=== PATIENT | male | born 1970 | race Caucasian/White ===

== ENCOUNTER 2019-07-01 14:28 | Outpatient (REF) | payer OTHER, SELFPAY ==
[2019-07-01 19:53] LABS: Cholesterol 139 mg/dL (50-200); Glucose 109 mg/dL (70-100); HDL Cholesterol 82 mg/dL (40-60)
[2019-07-01 20:15] LABS: Triglyceride < 25 mg/dL (30-150)
[2019-07-01 20:52] LABS: LDL CHOLESTEROL 48 mg/dL (<100)
== END 2019-07-01 14:48 ==
LOC: NCHCN 14:28
PROVIDERS: PCP Nurse Practitioner; Visit Provider Nurse Practitioner
DX: Z00.00 Encounter for general adult medical examination without abnormal findings (principal); Z13.220 Encounter for screening for lipoid disorders; Z13.1 Encounter for screening for diabetes mellitus
CPT/HCPCS: 80061; 82947; 83721

== ENCOUNTER 2019-07-09 15:20 | Emergency (ER) | payer OTHER, SELFPAY ==
[2019-07-09 15:37] VITALS: BP 115/75; PULSE 68; RESP 16; TEMP 37.1; O2SAT 98
--- NOTE | 2019-07-09 15:56 | DI.RAD_ITS ---
SYMPTOM/DIAGNOSIS: FELL IN BATH TUB, SWELLING, PAIN, BRUISE RIGHT TIB-FIB: Two views. No bone, joint or soft tissue abnormality is identified.
--- NOTE | 2019-07-09 15:57 | W.ED.GENAD ---
Discharge Plan Disposition Patient Disposition: HOME Condition: Good Discharge Details Chief Complaint: Orthopedic Clinical Impression: Contusion of right tibia Primary Care Provider: Romelia Lopes ED Provider: Chava Bettencourt Home Meds and New Rx's Prescriptions: No Action epinephrine [EpiPen 2-Julio] 0.3 MG/0.3 ML auto-injector 0.3 mg IJ PRN PRNQty: 1 RF: 0 diphenhydramine HCl 25 MG capsule 25 mg PO Q4H PRN PRNRF: 0 acetaminophen 325 MG tablet 650 mg PO Q8H PRN PRN (Reason: Pain) Qty: 30 RF: 0 Discharge Instructions Instructions: Contusion in Adults (ED) Additional Instructions: At this time your x-ray shows no evidence of acute fracture. Please take Tylenol and Motrin as needed for pain. Maximum doses of both are 1000 mg for Tylenol every 6 hours and 800 mg for ibuprofen every 6 hours. Please continue to use ice for the next 12 to 24 hours, and then switch to heat to help with the hematoma reabsorption. Please go easy on your right lower extremity and do not perform any significant vigorous physical activity for the next week to help with healing. If you notice any worsening of your symptoms, or any new symptoms such as vomiting, diarrhea, fever, chills, shortness of breath, chest pain, numbness, weakness, or fainting , please return immediately to the emergency department for reevaluation. Please follow up with your primary care provider as soon as possible for reassessment and reevaluation. As always, it was a pleasure participating in your medical care today. Referrals: Romelia Lopes [Primary Care Provider] - Discharge Data Discharge Date/Time-TO BE ENTERED AT DEPARTURE: 07/09/19 17:35 Medical Decision Making This is a very pleasant 49-year-old male who presents for evaluation of contusion over the right tibia, after a fall in the bathtub. This occurred 24 hours ago. Notable hematoma over the midshaft region of the tibia. No significant fibular tenderness except for at the distal hematoma location. No tenderness over the ankle or knee. No warmth or signs of infection. Brisk capillary refill, normal neurovascular exam. Patient is able to walk but with a mild limp. Exam demonstrates signs and symptoms concerning for notable hematoma versus hairline fracture. We will get an x-ray to rule out acute fracture. X-ray per virtual radiology negative for any acute process. Patient will be given crutches, recommend continued NSAIDs and ice. Discussed red flags which to return. I have extensively reviewed the treatment plan and discharge instructions with the patient. I have addressed all patient concerns at this time. The patient was made aware of what symptoms to monitor for that would warrant a return to the emergency department. Discussed the plan with the patient, they demonstrate verbal understanding and agreement with our assessment and plan at this time. FINDINGS: Bones/joints: Normal. Soft tissues: Normal. IMPRESSION: No acute findings. Dictated and Authenticated by: Keith Ortiz MD. Ordering:LINWOOD Larsen MD HPI General Date/Time Provider Initiated Documentation: 07/09/19 15:46. HPI Narrative: This is a very pleasant 49-year-old male who presents today for evaluation of pain in his right newell. 24 hours ago he was in a bathtub, had a mechanical slip and fall and hit his right tibia anteriorly on the shower. He had significant bruising and hematoma over the proximal and mid shaft tibia. Pain is made worse with movement and palpation. He is able to bear some weight but does have a limp. He denies any pain in his knee or ankle. He has not taken any NSAIDs for the pain. He has been using ice and heat. He denies hitting his head, neck, chest abdomen or pelvis. He denies any other significant pain in any other locations. He denies any numbness tingling or weakness. He is not on blood thinners. He denies any other complaints at this time. No other modifying factors. Related Data Home Medications Medication Instructions Recorded Confirmed epinephrine [EpiPen 2-Julio] 0.3 mg IJ PRN PRN #1 ml 02/14/15 07/09/19 acetaminophen 650 mg PO Q8H PRN PRN #30 tablet 02/10/18 07/09/19 diphenhydramine HCl 25 mg PO Q4H PRN PRN 02/10/18 07/09/19 Previous Rx's Medication Instructions Recorded epinephrine [EpiPen 2-Julio] 0.3 mg IJ PRN PRN #1 ml 02/14/15 acetaminophen 650 mg PO Q8H PRN PRN #30 tablet 02/10/18 Allergies Allergy/AdvReac Type Severity Reaction Status Date / Time milk AdvReac Intermediate Nausea Unverified 07/09/19 15:48 shellfish derived AdvReac Intermediate Swelling/Ed Unverified 07/09/19 15:48 shen hemp Allergy Severe Anaphylaxsi Uncoded 07/09/19 15:48 s pollen AdvReac Intermediate Hives Uncoded 07/09/19 15:48 General Stated Complaint: Orthopedic VEE: 4 Review of Systems Review of Systems All systems reviewed & are unremarkable except as noted in HPI and below PFSH Social History Smoking/Tobacco Use Status: Former Tobacco Use Alcohol Intake: current Alcohol Intake frequency: a few times a week Alcohol type: wine and hard liquor Drug use: Current Sobriety Substance use type: marijuana Do you feel safe in your relationship?: Yes Exam Narrative Exam Narrative: 1.Const: Well-nourished, Well-developed, appearing stated age 2.Eyes: PERRL, no conjunctival injection, and symmetrical lids. 3.ENT: Atraumatic external nose and ears. Moist MM. Neck: Symmetric, trachea midline, No thyromegaly. 4.CVS: +S1/S2, No murmurs or gallops. Peripheral pulses 2+ and equal in all extremities. Brisk capillary refill in all extremities. 5.RESP: Unlabored respiratory effort. Clear to auscultation bilaterally. No wheezes rales or rhonchi 6.GI: Soft, Nontender/Nondistended, No hepatosplenomegaly. No guarding or rebound. 7.MSK: Normocephalic, Extremities w/o deformit. No cyanosis or clubbing. Right lower extremity demonstrates notable hematoma over the tibia roughly 6 cm distal to the knee and a second hematoma roughly 6 cm proximal to the ankle. No fluctuance, erythema or warmth. No calf pain. The right knee is stable to varus, valgus, and anterior drawer stress. No deformity. Patellar grind test is negative. Debbi test is negative for pain. Patient is able to walk but does have a mild limp. No edema or warmth to the joint. No ttp to the patella, tibial plateau, or fibular head. Evaluation of the ankle demonstrates no tenderness whatsoever. No tenderness over the medial or lateral malleoli. Excellent plantar and dorsiflexion. Normal sensation throughout. Brisk capillary refill. Dorsalis pedis and posterior tibial pulse +2 bilaterally. 8.Skin: Warm, Dry. No rashes or lesions. 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 Sensation grossly intact, no focal neurologic deficits. 10.Psych: (AAO) x3. Appropriate mood and affect Course Vital Signs Temperature 37.1 C 07/09/19 15:37 Pulse 68 07/09/19 15:37 Respiratory Rate 16 07/09/19 15:37 Blood Pressure 115/75 07/09/19 15:37 Pulse Oximetry 98 07/09/19 15:37 Temperature 37.1 C 07/09/19 15:37 Temperature Source Temporal Artery Scan 07/09/19 15:37 Pulse 68 07/09/19 15:37 Respiratory Rate 16 07/09/19 15:37 Respiratory Effort 07/09/19 15:40 Blood Pressure 115/75 07/09/19 15:37 Blood Pressure Position Sitting 07/09/19 15:37 Pulse Oximetry 98 07/09/19 15:37 Oxygen Delivery Method Room Air 07/09/19 15:37 Oxygen Flow Rate 0 07/09/19 15:37 Pain Level 5 07/09/19 15:37
--- NOTE | 2019-07-09 17:13 | DI.VRAD_ITS ---
EXAM: XR Right Tibia and Fibula EXAM DATE/TIME: 07/09/2019 3:57 PM CLINICAL HISTORY: 49 years old, male; Lower leg; Right; Patient HX: Fell in bath tub yesterday, pain mid tib/fib, swelling and bruising. TECHNIQUE: Imaging protocol: XR Right tibia and fibula. Views: 2 views. COMPARISON: No relevant prior studies available. FINDINGS: Bones/joints: Normal. Soft tissues: Normal. IMPRESSION: No acute findings. Dictated and Authenticated by: Keith Ortiz MD. Ordering:LINWOOD Larsen MD
== END 2019-07-09 17:35 | disposition home or self-care (01) ==
PROVIDERS: Emergency Provider Student in an Organized Health Care Education/Training Program; PCP Nurse Practitioner
DX: S80.11XA Contusion of right lower leg, initial encounter (principal); W16.212A Fall in (into) filled bathtub causing other injury, initial encounter
CPT/HCPCS: 99283; 73590; E0114

== ENCOUNTER 2019-11-26 08:04 | Emergency (ER) | payer OTHER, SELFPAY ==
[2019-11-26 08:06] VITALS: BP 112/73; PULSE 57; RESP 16; TEMP 36.5; O2SAT 100
--- NOTE | 2019-11-26 08:30 | ED.GENADUL_ITS ---
Discharge Plan Disposition Patient Disposition: HOME Condition: Good Discharge Details Chief Complaint: Orthopedic Clinical Impression: Fracture, metacarpal Primary Care Provider: Romelia Lopes ED Provider: Mandy Petit Home Meds and New Rx's Prescriptions: Continued epinephrine [EpiPen 2-Julio] 0.3 MG/0.3 ML auto-injector 0.3 mg IJ PRN PRNQty: 1 RF: 0 diphenhydramine HCl 25 MG capsule 25 mg PO Q4H PRN PRNRF: 0 acetaminophen 325 MG tablet 650 mg PO Q8H PRN PRN (Reason: Pain) Qty: 30 RF: 0 fluticasone propion-salmeterol [Advair Diskus] 250-50 mcg/dose Blister With Device 1 ea INHALATION BID RF: 0 Discharge Instructions Instructions: Finger Fracture (ED) Additional Instructions: Encourage rest, ice, elevation. Tylenol and/or ibuprofen as needed for discomfort. Please continue with splint until reevaluated by orthopedics. Please call orthopedics to schedule follow-up appointment. If you develop fever/chills, increased pain or other new/worsening symptoms please seek care urgently once again. Orthopedics will also reevaluate the extension of your finger. Referrals: Nick Rodriguez MD [ [facility] STAFF PHYSICIAN] - Discharge Data Discharge Date/Time-TO BE ENTERED AT DEPARTURE: 11/26/19 09:47 Medical Decision Making Patient is a pleasant 49-year-old male presents today with chief complaint of left hand and right thigh pain. He reports that yesterday he was at the gym working with [employer] when he accidentally struck the lateral aspect of his left hand. This area of maximal discomfort. States that he then continued to boxing exercise. However, pain has progressively increased. He notes ecchymosis and swelling over the dorsal aspect near the fifth MCP joint. He denies any altered sensation. Has had, particularly with movement of the fourth and fifth digits. Also struck the mid medial right thigh when needing the boxing bag. States the back swung back and hit him again in the leg. No ecchymosis, deformity. No difficulty with ambulation. On exam Patient is resting comfortably. He has swelling and ecchymosis over the fifth meta carpal, more so toward the distal aspect. No pain with palpation about the finger. He does have difficulty with extension of the fifth digit, particularly over the PIP joint. Flexion is intact. Ligamentous exam elsewhere is normal. No involvement of the wrist. Pain maximal at the MCP joint of the fifth digit. Exam of the right thigh is without acute abnormality. He has 5 out of 5 strength in all vicente. No ecchymosis, deformity. He is able to straight leg raise against resistance. I have no suspicion for fracture given the mechanism and findings on exam. No knee involvement. FINDINGS: Three views were obtained. The patient l reportedly had direct trauma to the head of the 5th metacarpal and there is a tiny cortical defect and associated apparent osseous fragment. Otherwise the bones appear intact. IMPRESSION: Chip fracture of the head of the 5th metacarpal. No other fracture identified. Discussed these findings with the patient. He will be fitted with a foam metal splint to hold finger in extension. Encourage rest, ice, elevation. Advised follow-up with orthopedics. I do remain concerned with him having difficulty extending the PIP joint advised that orthopedics evaluate this further. Patient was fitted with a splint. All of his questions and concerns were addressed and he is in agreement with this plan. HPI General Mode of arrival: ambulatory . Date/Time Provider Initiated Documentation: 11/26/19 08:19 . Limitations to Documentation: no limitations . Information obtained by: patient and RN notes reviewed . History of Present Illness 49 year old M presents to the emergency department with the chief complaint of left hand and right thigh pain, described as moderate, with intensity rated at 8. Quality is described as aching, and is localized to the upper extremity (left) and lower extremity (right). Patient reports no radiation. Patient started experiencing this day(s) (1) and it has been constant. Immobilization improves symptom(s), Movement worsens symptoms . Patient notes no other symptoms.. Patient did receive the following treatments prior to arrival, none Related Data Home Medications Medication Instructions Recorded Confirmed epinephrine [EpiPen 2-Julio] 0.3 mg IJ PRN PRN #1 ml 02/14/15 11/26/19 acetaminophen 650 mg PO Q8H PRN PRN #30 tablet 02/10/18 11/26/19 diphenhydramine HCl 25 mg PO Q4H PRN PRN 02/10/18 11/26/19 fluticasone propion-salmeterol 1 ea INHALATION BID 11/26/19 11/26/19 [Advair Diskus] Previous Rx's Medication Instructions Recorded epinephrine [EpiPen 2-Julio] 0.3 mg IJ PRN PRN #1 ml 02/14/15 acetaminophen 650 mg PO Q8H PRN PRN #30 tablet 02/10/18 Allergies Allergy/AdvReac Type Severity Reaction Status Date / Time milk AdvReac Intermediate Nausea Unverified 11/26/19 08:09 shellfish derived AdvReac Intermediate Swelling/Ed Unverified 11/26/19 08:09 shen hemp Allergy Severe Anaphylaxsi Uncoded 11/26/19 08:09 s pollen AdvReac Intermediate Hives Uncoded 11/26/19 08:09 General Stated Complaint: Orthopedic VEE: 3 Review of Systems Constitutional Constitutional: Reports as per HPI, Denies chills, Denies fever(s), Denies headache(s) and Denies weakness ENT Ears, Nose, Mouth, and Throat: Denies headache(s) Cardiovascular Cardiovascular: Reports as per HPI Respiratory Respiratory: Reports as per HPI and Denies cough Musculoskeletal Musculoskeletal: Reports as per HPI and Denies tingling Integumentary/Breasts Skin/Breast: Reports as per HPI, Denies rash and Denies wounds Neurologic Neurologic: Reports as per HPI, Denies headache(s), Denies tingling, Denies paresthesias and Denies weakness [facility] Medical History Asthma (Chronic) Social History Smoking/Tobacco Use Status: Former Tobacco Use Alcohol Intake: current Alcohol Intake frequency: a few times a week Alcohol type: wine and hard liquor Drug use: Current Sobriety Substance use type: marijuana Do you feel safe at home: Yes Do you feel safe in your relationship?: Yes Exam Const General: cooperative, healthy appearing, comfortable, no acute distress, well developed and well groomed Nutritional Appearance: average body habitus and well nourished Orientation: alert and awake Resp Effort & Inspection: normal respiratory effort, able to speak in complete sentences and no respiratory distress Cardio Rate: regular rate Rhythm: regular rhythm Skin General skin exam: ecchymosis (lateral dorsal left hand ) Neuro General: alert and awake Cognition: normal cognition Speech: speech normal Gait: normal gait Motor: muscle tone normal throughout Sensory Exam: no sensory deficits noted (light touch intact) Extrem Left upper extremity: full ROM, normal capillary refill, no joint enlargement, wrist Details: normal to inspection and normal ROM; no tenderness and no swelling and hand Details: normal capillary refill, neuromotor exam normal, neurosensory exam normal, tendon exam normal (able to extend against resistance at MCP and DIP joint 5th, full extension 4th), tenderness Location: of the 5th digit (metacarpal, no pain in digit), vascular exam Details: radial pulse present and normal capillary refill and normal ROM of fingers; abnormal to inspection (sweling and ecchymosis over left hand); abnormal to inspection Left lower extremity: normal to inspection, full ROM, normal capillary refill and no joint enlargement Knee images: 1. area of discomfort. Full extension, 5/5 against resistance, able to adduct against resistance. No palpable deformity, no notable deformity Psych Appearance: grossly normal and well kempt Mental Status: mental status grossly normal Speech and Movement: speech and movement normal Course Vital Signs Vital signs: Vital Signs Temperature 36.5 C 11/26/19 08:06 Pulse 57 L 11/26/19 08:06 Respiratory Rate 16 11/26/19 08:06 Blood Pressure 112/73 11/26/19 08:06 Pulse Oximetry 100 11/26/19 08:06 Temperature 36.5 C 11/26/19 08:06 Temperature Source Temporal Artery Scan 11/26/19 08:06 Pulse 57 L 11/26/19 08:06 Respiratory Rate 16 11/26/19 08:06 Respiratory Effort Non-Labored 11/26/19 08:10 Blood Pressure 112/73 11/26/19 08:06 Blood Pressure Position Sitting 11/26/19 08:06 Pulse Oximetry 100 11/26/19 08:06 Oxygen Delivery Method Room Air 11/26/19 08:06 Oxygen Flow Rate 0 11/26/19 08:06 Pain Level 8 11/26/19 08:10
--- NOTE | 2019-11-26 09:02 | DI.RAD_ITS ---
EXAM: XR HAND LT COMPLETE CLINICAL HISTORY: trauma to 5th metacarpal TECHNIQUE: COMPARISON: No exams were available for comparison FINDINGS: Three views were obtained. The patient l reportedly had direct trauma to the head of the 5th metacar pal and there is a tiny cortical defect and associated apparent osseous fragment. Otherwise the bone s appear intact. IMPRESSION: Chip fracture of the head of the 5th metacarpal. No other fracture identified.
[2019-11-26] MEDS: Acetaminophen 500 MG TAB 1000 MG PO (09:21)
[2019-11-26] MEDS: Ibuprofen 600 MG TAB PO (09:21)
== END 2019-11-26 09:47 | disposition home or self-care (01) ==
PROVIDERS: Emergency Provider Physician Assistant; PCP Nurse Practitioner
DX: S62.307A Unspecified fracture of fifth metacarpal bone, left hand, initial encounter for closed fracture (principal); W21.89XA Striking against or struck by other sports equipment, initial encounter; M79.651 Pain in right thigh
CPT/HCPCS: 99283; 73130

== ENCOUNTER 2019-12-15 22:19 | Emergency (ER) | payer OTHER, SELFPAY ==
--- NOTE | 2019-12-15 22:22 | ED.GENADUL_ITS ---
Discharge Plan Disposition Patient Disposition: HOME Condition: Good Discharge Details Chief Complaint: Orthopedic Clinical Impression: Strain of left little finger Primary Care Provider: Romelia Lopes ED Provider: Jhonatan Giless and New Rx's Prescriptions: Continued epinephrine [EpiPen 2-Julio] 0.3 MG/0.3 ML auto-injector 0.3 mg IJ PRN PRNQty: 1 RF: 0 diphenhydramine HCl 25 MG capsule 25 mg PO Q4H PRN PRNRF: 0 acetaminophen 325 MG tablet 650 mg PO Q8H PRN PRN (Reason: Pain) Qty: 30 RF: 0 fluticasone propion-salmeterol [Advair Diskus] 250-50 mcg/dose Blister With Device 1 ea INHALATION BID RF: 0 Discharge Instructions Additional Instructions: X-rays show no new injury. Continue with current care plan and follow-up. Tylenol or Motrin as needed. Return if any issues. Medical Decision Making X-ray obtained. No new fracture identified. Previous chip fracture seen and appears to be healing. Patient informed of findings. Continue current medical plan and follow-up. HPI General Mode of arrival: ambulatory . Date/Time Provider Initiated Documentation: 12/15/19 22:22 . Limitations to Documentation: no limitations . Information obtained by: patient . 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 He had previous injury and fracture to the fifth metacarpal head. Patient grabbed this finger during the restraining process reinjuring the finger. He has some increased pain and swelling there now. Related Data Home Medications Medication Instructions Recorded Confirmed epinephrine [EpiPen 2-Julio] 0.3 mg IJ PRN PRN #1 ml 02/14/15 12/15/19 acetaminophen 650 mg PO Q8H PRN PRN #30 tab 02/10/18 12/15/19 diphenhydramine HCl 25 mg PO Q4H PRN PRN 02/10/18 12/15/19 fluticasone propion-salmeterol 1 ea INHALATION BID 11/26/19 12/15/19 [Advair Diskus] Previous Rx's Medication Instructions Recorded epinephrine [EpiPen 2-Julio] 0.3 mg IJ PRN PRN #1 ml 02/14/15 acetaminophen 650 mg PO Q8H PRN PRN #30 tab 02/10/18 Allergies Allergy/AdvReac Type Severity Reaction Status Date / Time almond Allergy Mild Verified 12/15/19 22:56 barley Allergy Mild Verified 12/15/19 22:56 corn Allergy Mild Verified 12/15/19 22:56 milk AdvReac Intermediate Nausea Unverified 12/15/19 22:56 shellfish derived AdvReac Intermediate Swelling/Ed Unverified 12/15/19 22:56 shen hemp Allergy Severe Anaphylaxsi Uncoded 12/15/19 22:56 s pollen AdvReac Intermediate Hives Uncoded 12/15/19 22:56 General VEE: 3 Review of Systems Constitutional Constitutional: Denies weakness Musculoskeletal Musculoskeletal: Denies deformity, Reports joint swelling and Denies numbness Integumentary/Breasts Skin/Breast: Denies wounds Neurologic Neurologic: Denies numbness and Denies weakness [facility] Medical History Asthma (Chronic) Social History Smoking/Tobacco Use Status: Former Tobacco Use Alcohol Intake: current Alcohol Intake frequency: a few times a week Alcohol type: wine and hard liquor Drug use: Current Sobriety Substance use type: marijuana Current gender identity: male Do you feel safe at home: Yes Do you feel safe in your relationship?: Yes Exam Const General: cooperative and comfortable Orientation: alert and oriented x3 Skin Trauma: no lacerations or abrasions Extrem Other: Left hand with some swelling around the fifth MCP joint. No obvious deformity. Some tenderness in this area. Cap refill normal. Sensation normal. Range of motion and strength good.
--- NOTE | 2019-12-15 22:43 | DI.RAD_ITS ---
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 COMPARISON: XR HAND LT COMPLETE from 11/26/2019 TECHNIQUE: 2D digital imaging was performed. FINDINGS: A small bony fragment is again noted adjacent to the head of the 5th metacarpal. There is some nelson cent soft tissue swelling. No new fractures are seen. There is no evidence of dislocation. IMPRESSION: No evidence of new fracture.
[2019-12-15 22:57] VITALS: BP 120/83; PULSE 73; O2SAT 98
--- NOTE | 2019-12-15 23:28 | DI.VRAD_ITS ---
PROCEDURE INFORMATION: Exam: XR Left Hand Exam date and time: 12/15/2019 10:44 PM Age: 49 years old Clinical indication: Finger(s) and hand; Patient HX: Injury to left hand with pain in the 5th digit TECHNIQUE: Imaging protocol: XR Left hand. Views: 3 or more views. COMPARISON: CR XR HAND LT COMPLETE 11/26/2019 9:02 AM FINDINGS: Bones/joints: Again identified is a small bony density adjacent to the head of the 5th metacarpal. Tiny adjacent cortical defect in the head of the 5th metacarpal. Soft tissues: Mild adjacent soft tissue swelling at the 5th metatarsophalangeal joint. IMPRESSION: Again identified is a small bony density adjacent to the head of the 5th metacarpal that may represent a chip fracture. This is without interval change from the prior study dated 11/26/2019. Mild soft tissue swelling at the 5th metatarsophalangeal joint. Dictated and Authenticated by: Geronimo Weston MD. Ordering:VENESSA Israel MD
== END 2019-12-15 23:40 | disposition home or self-care (01) ==
PROVIDERS: Emergency Provider Emergency Medicine; PCP Nurse Practitioner
DX: S66.912A Strain of unspecified muscle, fascia and tendon at wrist and hand level, left hand, initial encounter (principal); X50.9XXA Other and unspecified overexertion or strenuous movements or postures, initial encounter; Y99.0 Civilian activity done for income or pay
CPT/HCPCS: 99283; 73130

== ENCOUNTER 2020-04-28 12:40 | Outpatient (REF) | payer OTHER, SELFPAY ==
[2020-04-28 14:40] LABS: ALT 45 U/L (16-63); AST 24 U/L (15-37); Albumin 3.7 g/dL (3.4-5.0); Alkaline Phosphatase 67 U/L (46-116); Anion Gap 7.3 mmol/L (3-11); BUN 25 mg/dL (7-18); Bilirubin, Total 0.5 mg/dL (0.2-1.0); CO2 26.7 mmol/L (21.0-32.0); CREATININE 1.03 mg/dL (0.70-1.30); Chloride 109 mmol/L (98-107); Ferritin 76 ng/mL (26-388); Glucose 116 mg/dL (74-106); Magnesium 1.9 mg/dL (1.8-2.4); Potassium 4.6 mmol/L (3.5-5.1); Sodium 143 mmol/L (136-145); Total Protein 6.9 g/dL (6.4-8.2)
[2020-04-28 14:43] LABS: Hemoglobin A1C 5.9 % (3.8-5.6)
== END 2020-04-28 13:00 ==
LOC: NCHCN 12:40
PROVIDERS: PCP Nurse Practitioner; Visit Provider Nurse Practitioner Family
DX: M62.838 Other muscle spasm (principal)
CPT/HCPCS: 80053; 82728; 83036; 83735

== ENCOUNTER 2020-07-03 15:40 | Emergency (ER) | payer OTHER, SELFPAY ==
[2020-07-03 15:44] VITALS: BP 116/68; PULSE 64; RESP 18; TEMP 36.3; O2SAT 97
--- NOTE | 2020-07-03 15:45 | DI.RAD_ITS ---
EXAM: XR HAND RT COMPLETE CLINICAL HISTORY: lateral pain after blunt trauma. TECHNIQUE: 2D digital imaging was performed. COMPARISON: CR,XR XR HAND LT COMPLETE from 12/15/2019 FINDINGS: BONES: No acute fracture is present. No bony destructive lesion is seen. JOINTS: No dislocation present. SOFT TISSUE: Normal. IMPRESSION: Unremarkable radiographs of the right hand. DATA REPOSITORY: RADIATION DOSE DELIVERED:
--- NOTE | 2020-07-03 15:48 | W.ED.GENAD ---
Discharge Plan Disposition Patient Disposition: HOME Condition: Improving Discharge Details Chief Complaint: Orthopedic Clinical Impression: Contusion of hand, right Primary Care Provider: Romelia Lopes ED Provider: Ivan Mendoza Home Meds and New Rx's Prescriptions: Continued epinephrine [EpiPen 2-Julio] 0.3 MG/0.3 ML auto-injector 0.3 mg IJ PRN PRNQty: 1 RF: 0 diphenhydramine HCl 25 MG capsule 25 mg PO Q4H PRN PRNRF: 0 acetaminophen 325 MG tablet 650 mg PO Q8H PRN PRN (Reason: Pain) Qty: 30 RF: 0 fluticasone propion-salmeterol [Advair Diskus] 250-50 mcg/dose Blister With Device 1 ea INHALATION BID RF: 0 Discharge Instructions Instructions: Contusion in Adults (ED) Additional Instructions: Use ice to reduce discomfort. Tylenol and/or ibuprofen as needed for pain. Continue your regularly prescribed medications. Return to the ER for any acute concerns. Medical Decision Making 50-year-old male presents for evaluation of right hand dorsal pain after striking it against a cabinet in his home. He is tender along the fifth metacarpal. Referred for x-ray which does not show underlying bony injury. Discussed home management with the patient, he is stable for discharge at this time. [facility] General Mode of arrival: ambulatory. Date/Time Provider Initiated Documentation: 07/03/20 15:41. Limitations to Documentation: no limitations. Information obtained by: patient. History of Present Illness 50 year old M presents to the emergency department with the chief complaint of Right hand pain after blunt trauma, described as moderate, Quality is described as dull and constant, and is localized to the right and upper extremity. Patient reports no radiation. Patient started experiencing this day(s) and it has been constant. No relieving factors improve symptom(s), No exacerbating factors reported . Patient did receive the following treatments prior to arrival, none Related Data Home Medications Medication Instructions Recorded Confirmed epinephrine [EpiPen 2-Julio] 0.3 mg IJ PRN PRN #1 ml 02/14/07/03/20 acetaminophen 650 mg PO Q8H PRN PRN #30 tab 02/10/18 07/03/20 diphenhydramine HCl 25 mg PO Q4H PRN PRN 02/10/18 07/03/20 fluticasone propion-salmeterol 1 ea INHALATION BID 11/26/19 07/03/20 [Advair Diskus] Previous Rx's Medication Instructions Recorded epinephrine [EpiPen 2-Julio] 0.3 mg IJ PRN PRN #1 ml 02/14/15 acetaminophen 650 mg PO Q8H PRN PRN #30 tab 02/10/18 Allergies Allergy/AdvReac Type Severity Reaction Status Date / Time almond Allergy Mild Verified 07/03/20 15:49 barley Allergy Mild Verified 07/03/20 15:49 corn Allergy Mild Verified 07/03/20 15:49 milk AdvReac Intermediate Nausea Unverified 07/03/20 15:49 shellfish derived AdvReac Intermediate Swelling/Ed Unverified 07/03/20 15:49 shen hemp Allergy Severe Anaphylaxsi Uncoded 07/03/20 15:49 s pollen AdvReac Intermediate Hives Uncoded 07/03/20 15:49 General Stated Complaint: Orthopedic VEE: 4 Review of Systems Narrative: No other injury. [facility] Medical History Asthma (Chronic) Social History Smoking/Tobacco Use Status: Former Tobacco Use Alcohol Intake: current Alcohol Intake frequency: a few times a week Alcohol type: wine and hard liquor Drug use: Occasionally Substance use type: marijuana Current gender identity: male Do you feel safe at home: Yes Do you feel safe in your relationship?: Yes Exam Narrative Exam Narrative: GEN: awake, alert, oriented 3. Pleasant, well groomed, interactive. HEAD: Normocephalic, atraumatic EYES: PERRL, EOMI EXT: Full ROM, right fifth metacarpal proximal pain on palpation. No gross deformity appreciated. Otherwise unremarkable exam. Neuro: Grossly normal neurologic exam, conversant, interactive. Psych: Speech fluent, thoughts congruent, affect normal Course Vital Signs Vital signs: Vital Signs Temperature 36.3 C L 07/03/20 15:44 Pulse 64 07/03/20 15:44 Respiratory Rate 18 07/03/20 15:44 Blood Pressure 116/68 07/03/20 15:44 Pulse Oximetry 97 07/03/20 15:44 Temperature 36.3 C L 07/03/20 15:44 Temperature Source Skin 07/03/20 15:44 Pulse 64 07/03/20 15:44 Respiratory Rate 18 07/03/20 15:44 Blood Pressure 116/68 07/03/20 15:44 Blood Pressure Position Sitting 07/03/20 15:44 Pulse Oximetry 97 07/03/20 15:44 Oxygen Delivery Method Room Air 07/03/20 15:44 Oxygen Flow Rate 0 07/03/20 15:44
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
== END 2020-07-03 16:09 | disposition home or self-care (01) ==
PROVIDERS: Emergency Provider Emergency Medicine; PCP Nurse Practitioner
DX: S60.221A Contusion of right hand, initial encounter (principal); W22.09XA Striking against other stationary object, initial encounter
CPT/HCPCS: 99283; 73130

== ENCOUNTER 2020-08-19 03:12 | Outpatient (CLI) | payer OTHER, SELFPAY ==
[2020-08-20 20:45] LABS: COVID-19 RT-PCR Result NEGATIVE (Negative)
== END 2020-08-19 03:32 ==
PROVIDERS: PCP Nurse Practitioner; Visit Provider Family Medicine
DX: Z11.59 Encounter for screening for other viral diseases (principal); Z01.811 Encounter for preprocedural respiratory examination
CPT/HCPCS: U0003

== ENCOUNTER 2020-08-24 01:30 | Outpatient (CLI) | payer OTHER, SELFPAY ==
[2020-08-24] MEDS: Methacholine 100 MG VIAL IH (15:46)
[2020-08-24] MEDS: Inhaler, Assist Device 1 EACH MC (15:47)
[2020-08-24] MEDS: Albuterol HFA 18 GM 200 PUFF INH IH (15:47)
--- NOTE | 2020-08-29 10:59 | W.PFT ---
Date of service: 08/24/20 Time of Service: 01:14 Pulmonary Function Test Result Interpretation Spirometry: Borderline Mild obstructive airways disease, May represent a normal variant,no bronchodilator testing was carried out Lung Volumes: No evidence of restriction Diffusion Capacity: Normal Airway Pressure: Normal Impression Overall likely normal pulmonary function study, there may be borderline mild obstruction, though the overall picture is more suggestive Normal pulmonary function study Clinical Correlation therefore is recommended.
--- NOTE | 2020-08-29 11:04 | W.PFT ---
Date of service: 08/24/20 Time of Service: 01:14 Pulmonary Function Test Result Clinical Correlation therefore is recommended. Methacholine Challnege Test Date of Service Date of Service: 08/24/2020 Note After normal pulmonary function study, methacholine challenge testing was carried out up to methacholine Concentration of 16 mg/mL at which point the patient had a 12% drop in FEV1. Impression Negative methacholine challenge test. No significant bronchodilator response
== END 2020-08-24 01:50 ==
PROVIDERS: PCP Nurse Practitioner; Visit Provider Nurse Practitioner Family
DX: J45.30 Mild persistent asthma, uncomplicated (principal)
CPT/HCPCS: 94060; 94726; 94729; 95070; 94010; J7674

== ENCOUNTER 2020-09-04 18:35 | Emergency (ER) | payer OTHER, SELFPAY ==
[2020-09-04 18:49] VITALS: BP 135/82; PULSE 85; RESP 18; TEMP 36.3; O2SAT 98
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
[2020-09-04 19:57] LABS: Abs Immature Grans 0.04 10^3/uL (0.0-0.06); Absolute Basophil Count 0.11 10^3/uL (0.0-0.2); Absolute Eosinophil Count 0.25 10^3/uL (0.0-0.7); Absolute Lymphocyte Count 1.51 10^3/uL (1.2-3.4); Absolute Monocyte Count 0.66 10^3/uL (0.1-0.8); Absolute Neutrophil Count 7.26 10^3/uL (1.2-6.7); Basophils % 1.1; Eosinophils % 2.5; HGB 13.7 g/dL (13.5-17.5); Immature Grans % 0.4; Lymphocytes % 15.4; MCHC 31.9 % (32.0-36.0); MCV 94.3 fL (80-95); MPV 9.9 fL (8.0-11.0); Monocytes % 6.7; Neutrophils % 73.9; Nucleated RBC 0 %; Platelet Count 283 10^3/uL (130-400); RBC 4.56 10^6/uL (4.36-5.78); RDW 12.1 % (11.8-14.1); RDW-SD 42.1 fL; WBC 9.83 10^3/uL (4.4-10.8)
[2020-09-04 20:07] LABS: Anion Gap 6.6 mmol/L (3-11); BUN 26 mg/dL (7-18); CO2 28.4 mmol/L (21.0-32.0); CREATININE 1.39 mg/dL (0.70-1.30); Calcium 9.2 mg/dL (8.5-10.1); Chloride 106 mmol/L (98-107); Estimated GFR 54.54 (mL/min/1.73m2); Glucose 125 mg/dL (74-106); Potassium 3.9 mmol/L (3.5-5.1); Sodium 141 mmol/L (136-145)
[2020-09-04] MEDS: Omnipaque 350 MG/ML 100 ML BTL IJ (20:37)
[2020-09-04] MEDS: Normal Saline - Diluent 50 ML VIAL IV (20:38)
[2020-09-04] MEDS: Normal Saline Flush 10 ML SYR IVP (20:38)
[2020-09-04] MEDS: Normal Saline 500 ML IV (20:45)
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
== END 2020-09-04 21:30 | disposition home or self-care (01) ==
PROVIDERS: Student in an Organized Health Care Education/Training Program; Emergency Provider Emergency Medicine; PCP Nurse Practitioner
DX: T74.11XA Adult physical abuse, confirmed, initial encounter (principal); M54.2 Cervicalgia; Y04.8XXA Assault by other bodily force, initial encounter; Y99.0 Civilian activity done for income or pay
CPT/HCPCS: 70498; 80048; 96360; 99285; 85025; 99284; J3490

== ENCOUNTER 2021-04-05 12:57 | Outpatient (CLI) | payer OTHER, SELFPAY ==
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
== END 2021-04-05 13:17 ==
PROVIDERS: PCP Nurse Practitioner; Visit Provider Physician Assistant Medical
DX: M25.561 Pain in right knee (principal)
CPT/HCPCS: 73562

== ENCOUNTER 2021-06-07 14:58 | Outpatient (CLI) | payer OTHER, SELFPAY ==
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
== END 2021-06-07 14:59 | disposition home or self-care (01) ==
LOC: DIORS 14:58
PROVIDERS: PCP Nurse Practitioner; Referring Provider Nurse Practitioner; Visit Provider Student in an Organized Health Care Education/Training Program
DX: S89.91XD Unspecified injury of right lower leg, subsequent encounter (principal); X58.XXXD Exposure to other specified factors, subsequent encounter
CPT/HCPCS: 73560

== ENCOUNTER 2022-01-30 20:35 | Emergency (ER) | payer OTHER, SELFPAY ==
[2022-01-30] VITALS (24 sets, daily range): BP systolic 97–140; BP diastolic 56–86; PULSE 56–77; RESP 11–19; O2SAT 96–100
--- NOTE | 2022-01-30 20:30 | RT.EKG_ITS ---
APPROVED REPORT Exam: Resting ECG Reason for Exam: short of breath Patient Location: E HR:60 bpm ECG Measurements Heart Rate 60 AXIS ID 142 P 72 QRSd 99 QRS -6 QT 430 T 26 QTc 428 Conclusion Sinus rhythm...normal P axis, V-rate 60- 99 Physician: no signiicant st elevation or depression. inverted t wave in III and V1, unchanged from
[2022-01-30] MEDS: Normal Saline 1,000 ML 1000 ML IV (21:00)
[2022-01-30 21:11] LABS: Abs Immature Grans 0.02 10^3/uL (0.0-0.06); Absolute Eosinophil Count 0.38 10^3/uL (0.0-0.7); Absolute Lymphocyte Count 1.84 10^3/uL (1.2-3.4); Absolute Monocyte Count 0.82 10^3/uL (0.1-0.8); Absolute Neutrophil Count 4.61 10^3/uL (1.2-6.7); Basophils % 1.3; Eosinophils % 4.9; HCT 42.2 % (40.0-50.0); HGB 13.6 g/dL (13.5-17.5); Immature Grans % 0.3; Lymphocytes % 23.7; MCH 30.4 pg (27.0-33.0); MCHC 32.2 % (32.0-36.0); MCV 94.2 fL (80-95); MPV 9.7 fL (8.0-11.0); Monocytes % 10.6; Neutrophils % 59.2; Nucleated RBC 0 %; Platelet Count 282 10^3/uL (130-400); RBC 4.48 10^6/uL (4.36-5.78); RDW-SD 41.6 fL; WBC 7.77 10^3/uL (4.4-10.8)
--- NOTE | 2022-01-30 21:15 | W.ED.GENAD ---
Discharge Plan Disposition Patient Disposition: HOME Condition: Good Discharge Details Clinical Impression: Near syncope, Dehydration Primary Care Provider: Romelia Lopes ED Provider: Chava Bettencourt Home Meds and New Rx's Prescriptions: Continued epinephrine [EpiPen 2-Julio] 0.3 MG/0.3 ML auto-injector 0.3 mg IJ PRN PRNQty: 1 0RF diphenhydramine HCl 25 MG capsule 25 mg PO Q4H PRN PRN0RF acetaminophen 325 MG tablet 650 mg PO Q8H PRN PRN (Reason: Pain) Qty: 30 0RF fluticasone propion-salmeterol [Advair Diskus] 250-50 mcg/dose Blister With Device 1 ea INHALATION BID 0RF Discharge Instructions Instructions: Dehydration (ED), Near Syncope (ED) Additional Instructions: At this time your work-up is very reassuring. Your BUN/creatinine ratio is slightly elevated to suggest mild dehydration. I would increase your daily fluid intake by 500 to 750 mL. Make sure you are eating consistently throughout the day. We have placed an order for a Holter monitor. Respiratory therapy should contact you tomorrow to have this placed. If you notice any worsening of your symptoms, or any new symptoms such as vomiting, diarrhea, fever, chills, shortness of breath, chest pain, numbness, weakness, or fainting , please return immediately to the emergency department for reevaluation. Please follow up with your primary care provider as soon as possible for reassessment and reevaluation. As always, it was a pleasure participating in your medical care today. Referrals: Romelia Lopes [Primary Care Provider] - Discharge Orders Other Ambulatory Orders: Holter Monitor (Routine) Timeframe: 1 Week Facility: [facility] - Location: Respiratory Therapy Ordered By: Chava Bettencourt Medical Decision Making This is a 51-year-old male with a past medical history of reactive airway disease, who presents today for evaluation of lightheadedness cramping and near syncope. Patient states that he has a history of passing out while at work or at other places. He has never been evaluated for this before though. He states that over the last few months he has noticed that whenever he drinks excessive amounts of alcohol, or when he eats extra sugary foods or extra salty foods that he subsequently the next morning developed significant leg cramp which she describes as severe. In addition to this over the last 3 to 4 days he has noticed episodes of lightheadedness and near syncope when performing activity. Never at rest. 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 Patient exercises very regularly, up to 2 hours a day almost every day. He denies any lightheadedness or syncope during these events. Patient does drink a notable amount of fluid throughout the day. He stays well-hydrated throughout the day but he definitely admit to low food intake in general and feels this may be a component of it as well. He denies any chest pain, tearing or ripping sensation, or chest heaviness. He denies any significant palpitations. He does have a family history of sudden cardiac in his father that occurred last year, the suspicion was that he had a massive heart attack. The patient's grandfather also in a similar way. Patient denies any IV or illicit drug use. He denies any other complaints at this time. He denies any recent long trips, surgeries or procedures. Physical exam demonstrates no significant abnormalities. Mucous membranes are dry though. Radial pulses are equal. No calf tenderness. No pitting edema of the lower extremities. EKG demonstrates an inverted T wave in lead III, and V1, no evidence of Brugada syndrome, epsilon wave, or delta wave. EKG is unchanged from prior EKG a few years ago. Limited bedside echo demonstrates good cardiac contractility, no pericardial effusion. IJ's are slightly collapsible on ultrasound exam. However inferior vena cava demonstrates no significant collapse with sniff test. At this time differential includes component of dehydration causing his symptoms and subsequent vasovagal syncope, however cardiac dysrhythmia, PE, dehydration from diabetes or electrolyte disorder, is also on the differential. Will evaluate for these etiologies, monitor closely and reassess. 10:30 PM Patient's laboratory work-up is returned normal. No significant abnormalities. BUN is slightly elevated to suggest mild dehydration potentially. EKG, thyroid function, and troponin are normal. proBNP normal suggesting no signs of heart strain. D-dimer is normal. Symptoms inconsistent with PE. Neurologic exam normal, symptoms inconsistent with acute neurologic abnormality requiring neurologic imaging at this time. Urinalysis shows no evidence of glucose in the urine to suggest diabetes because of intense. 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 However out of an abundance of precaution even though there are no EKG or rhythm abnormalities noted here, we will schedule for an outpatient Holter monitor. Discussed red flags which to return. Recommend increase oral fluid intake throughout the day. Barren syncope score is in the lowest risk category. Heart score is in the lowest risk category. Patient stable for discharge. Symptoms inconsistent with ACS. I have extensively reviewed the treatment plan and discharge instructions with the patient. I have addressed all patient concerns at this time. The patient was made aware of what symptoms to monitor for that would warrant a return to the emergency department. Discussed the plan with the patient, they demonstrate verbal understanding and agreement with our assessment and plan at this time. The documentation in this chart was dictated using Play[employer] dictation software. Please excuse any dictation errors. HPI General Date/Time Provider Initiated Documentation: 01/30/22 20:37. HPI Narrative: This is a 51-year-old male with a past medical history of reactive airway disease, who presents today for evaluation of lightheadedness cramping and near syncope. Patient states that he has a history of passing out while at work or at other places. He has never been evaluated for this before though. He states that over the last few months he has noticed that whenever he drinks excessive amounts of alcohol, or when he eats extra sugary foods or extra salty foods that he subsequently the next morning developed significant leg cramp which she describes as severe. In addition to this over the last 3 to 4 days he has noticed episodes of lightheadedness and near syncope when performing activity. Never at rest. 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 Patient exercises very regularly, up to 2 hours a day almost every day. He denies any lightheadedness or syncope during these events. Patient does drink a notable amount of fluid throughout the day. He stays well-hydrated throughout the day but he definitely admit to low food intake in general and feels this may be a component of it as well. He denies any chest pain, tearing or ripping sensation, or chest heaviness. He denies any significant palpitations. He does have a family history of sudden cardiac in his father that occurred last year, the suspicion was that he had a massive heart attack. The patient's grandfather also in a similar way. Patient denies any IV or illicit drug use. He denies any other complaints at this time. He denies any recent long trips, surgeries or procedures. Related Data Home Medications Medication Instructions Recorded Confirmed epinephrine 0.3 mg/0.3 mL 0.3 mg (0.3 mL) IJ PRN PRN #1 ml 02/14/15 01/30/22 injection, auto-injector (EpiPen 2-Julio) acetaminophen 325 mg tablet 650 mg PO Q8H PRN PRN #30 tab 02/10/18 01/30/22 diphenhydramine HCl 25 mg capsule 25 mg PO Q4H PRN PRN 02/10/18 01/30/22 fluticasone 250 mcg-salmeterol 50 1 ea INHALATION BID 11/26/19 01/30/22 mcg/dose blistr powdr for inhalation (Advair Diskus) Previous Rx's Medication Instructions Recorded epinephrine 0.3 mg/0.3 mL 0.3 mg (0.3 mL) IJ PRN PRN #1 ml 02/14/15 injection, auto-injector (EpiPen 2-Julio) acetaminophen 325 mg tablet 650 mg PO Q8H PRN PRN #30 tab 02/10/18 Allergies Allergy/AdvReac Type Severity Reaction Status Date / Time almond Allergy Mild Verified 01/30/22 21:08 barley Allergy Mild Verified 01/30/22 21:08 corn Allergy Mild Verified 01/30/22 21:08 soybean Allergy Mild Hives,Itchy Unverified 01/30/22 21:08 milk AdvReac Intermediate Nausea Unverified 01/30/22 21:08 shellfish derived AdvReac Intermediate Swelling/Ed Unverified 01/30/22 21:08 shen hemp Allergy Severe Anaphylaxsi Uncoded 01/30/22 21:08 s pollen AdvReac Intermediate Hives Uncoded 01/30/22 21:08 General Stated Complaint: GenMedical VEE: 3 Review of Systems All systems reviewed & are unremarkable except as noted in HPI and below PFSH All Active Problems (Updated 01/30/22 @ 22:24 by Chava Bettencourt DO) Near syncope (Acute) Dehydration (Acute) Near syncope (Acute) MCL sprain of right knee (Acute) Medical History Asthma Closed fracture of 5th metacarpal Social History Smoking/Tobacco Use Status: Former Tobacco Use Smoking risk assessment performed?: Yes Alcohol Intake: current Alcohol Intake frequency: a few times a week Alcohol type: wine and hard liquor Drug use: Occasionally Substance use type: marijuana Current gender identity: male Do you feel safe at home: Yes Do you feel safe in your relationship?: Yes Exam Narrative Exam Narrative: 1.Const: Well-nourished, Well-developed, appearing stated age 2.Eyes: PERRL, no conjunctival injection, and symmetrical lids. 3.ENT: Atraumatic external nose and ears. Moist MM. Neck: Symmetric, trachea midline, No thyromegaly. 4.CVS: +S1/S2, No murmurs or gallops. Peripheral pulses 2+ and equal in all extremities. Brisk capillary refill in all extremities. Radial pulses +2 bilaterally. 5.RESP: Unlabored respiratory effort. Clear to auscultation bilaterally. No wheezes rales or rhonchi 6.GI: Soft, Nontender/Nondistended, No hepatosplenomegaly. No guarding or rebound. 7.MSK: Normocephalic/Atraumatic, Extremities w/o deformity or ttp No cyanosis or clubbing, Normal movement of all extremities 8.Skin: Warm, Dry. No rashes or lesions. 9.Neuro: tire vulcanizer II-XII grossly intact. Sensation grossly intact, no focal neurologic deficits. All 6 cardinal planes of vision are fully intact. No evidence of rotatory or vertical nystagmus. The patient demonstrated a normal [id number], good dexterity. There was no evidence of dysdiadochokinesia. Patient was able to ambulate without difficulty. There was no wide-based gait. Romberg testing was normal. Lfdk-lt-[id number] testing was normal. Sensation was intact bilaterally as well as muscle strength bilaterally for all extremities. Patient was able to verbalize butter cup with no slurring, or miss pronunciation. 10.Psych: (AAO) x3. Appropriate mood and affect Course Vital Signs Vital signs: Vital Signs Pulse 77 01/30/22 20:39 Respiratory Rate 16 01/30/22 20:39 Pulse Oximetry 96 01/30/22 20:39 Pulse 77 01/30/22 20:39 Respiratory Rate 16 01/30/22 20:39 Respiratory Effort Short of Breath 01/30/22 20:42 Blood Pressure 134/86 01/30/22 20:44 Pulse Oximetry 96 01/30/22 20:39 Lab/Test Results Lab/Test Results: Laboratory Tests Range/Units 01/30/22 20:54 WBC (4.4-10.8) 10^3/uL 7.77 RBC (4.36-5.78) 10^6/uL 4.48 Hgb (13.5-17.5) g/dL 13.6 Hct (40.0-50.0) % 42.2 MCV (80-95) fL 94.2 MCH (27.0-33.0) pg 30.4 MCHC (32.0-36.0) % 32.2 RDW (11.8-14.1) % 12.0 Plt Count (130-400) 10^3/uL 282 MPV (8.0-11.0) fL 9.7 Immature Gran % 0.3 Neutrophils % 59.2 Lymphocytes % 23.7 Monocytes % 10.6 Eosinophils % 4.9 Basophils % 1.3 Nucleated RBC % % 0 Absolute Neutrophils (1.2-6.7) 10^3/uL 4.61 Absolute Lymphocytes (1.2-3.4) 10^3/uL 1.84 Absolute Monocytes (0.1-0.8) 10^3/uL 0.82 H Absolute Eosinophils (0.0-0.7) 10^3/uL 0.38 Absolute Basophils (0.0-0.2) 10^3/uL 0.10 PAWSS Have you Been Recently Intoxicated or Drunk Within the Last 30 days?: Yes Have you Ever Experienced Previous Episodes of Alcohol Withdrawal?: No Have you ever Experienced Withdrawal Seizures?: No Have you ever Experienced Delirium Tremens(DT)s?: No Have you ever undergone Alcohol Rehabilitation Treatment (i.e, inpt ot outpatient treatment programs)?: No Have you ever Experienced Blackouts?: No Have you ever Combined Alcohol with other Downers within the last 90 days?: No Have you ever Combined Alcohol with any other Substance of Abuse during the last 90 days?: No Positive Blood Alcohol level on Presentation? [PCS.BAL]: No Evidence of Increased Autonomic Activity (i.e. HR>120, tremor, sweating, agitation, nausea)?: No Result: 1
[2022-01-30 21:39] LABS: Bilirubin Negative (Negative); Blood Negative (Negative); Clarity Clear (Clear); Glucose Negative (Negative); Ketones Negative (Negative); Leukocyte Esterase Negative (Negative); Nitrite Negative (Negative); Specific Gravity >= 1.030 (1.005-1.025); Urobilinogen 0.2 EU/dL (Up TO 0.2); pH 5.5 (5-8)
[2022-01-30 21:54] LABS: D-Dimer 112 ng/mlFEU (<500)
[2022-01-30 21:55] LABS: ALT 44 U/L (16-63); AST 22 U/L (15-37); Albumin 3.5 g/dL (3.4-5.0); Alkaline Phosphatase 85 U/L (46-116); Anion Gap 6.4 mmol/L (3-11); BUN 30 mg/dL (7-18); Bilirubin, Total 0.2 mg/dL (0.2-1.0); CO2 27.6 mmol/L (21.0-32.0); CREATININE 1.2 mg/dL (0.70-1.30); Calcium 8.5 mg/dL (8.5-10.1); Chloride 107 mmol/L (98-107); Glucose 115 mg/dL (74-106); Magnesium 2.2 mg/dL (1.8-2.4); NT-proBNP 38 pg/mL (<300); Potassium 4.4 mmol/L (3.5-5.1); Sodium 141 mmol/L (136-145); TSH (W/Ref FT4) 1.11 uIU/mL (0.36-3.74); Troponin I < 50 ng/L (<or=60)
== END 2022-01-30 22:36 | disposition home or self-care (01) ==
LOC: ER 22:55
PROVIDERS: Emergency Provider Student in an Organized Health Care Education/Training Program; PCP Nurse Practitioner
DX: E86.0 Dehydration; R55 Syncope and collapse; R06.02 Shortness of breath
CPT/HCPCS: 36415; 80053; 93005; 96360; 99284; 81003; 83735; 83880; 84443; 84484; 85025; 85379; 93010; 99283

== ENCOUNTER 2022-04-12 12:46 | Outpatient (REF) | payer OTHER, SELFPAY ==
[2022-04-12 15:25] LABS: HCT 43.7 % (40.0-50.0); HGB 13.8 g/dL (13.5-17.5); MCH 29.9 pg (27.0-33.0); MCHC 31.6 % (32.0-36.0); MCV 95 fL (80-95); MPV 10.5 fL (8.0-11.0); Platelet Count 264 10^3/uL (130-400); RBC 4.62 10^6/uL (4.36-5.78); RDW 12.5 % (11.8-14.1); RDW-SD 43.5 fL; WBC 6.97 10^3/uL (4.4-10.8)
[2022-04-12 15:37] LABS: ALT 31 U/L (16-63); AST 20 U/L (15-37); Albumin 3.7 g/dL (3.4-5.0); Alkaline Phosphatase 78 U/L (46-116); Anion Gap 6.7 mmol/L (3-11); BUN 21 mg/dL (7-18); Bilirubin, Total 0.5 mg/dL (0.2-1.0); CO2 27.3 mmol/L (21.0-32.0); CREATININE 0.9 mg/dL (0.70-1.30); Calcium 8.6 mg/dL (8.5-10.1); Chloride 108 mmol/L (98-107); Cholesterol 125 mg/dL (<200); Glucose 107 mg/dL (74-106); HDL Cholesterol 75 mg/dL (40-60); Potassium 4.5 mmol/L (3.5-5.1); Sodium 142 mmol/L (136-145); Total Protein 6.5 g/dL (6.4-8.2)
[2022-04-12 15:39] LABS: Triglyceride < 25 mg/dL (<150)
[2022-04-13 09:30] LABS: Hepatitis C Ab w Rflx HCV PCR Negative (Negative)
[2022-04-13 09:34] LABS: HIV-1/2 Ag & Ab Screen Negative (Negative)
== END 2022-04-12 12:47 | disposition home or self-care (01) ==
LOC: NCHCN 12:46
PROVIDERS: PCP Nurse Practitioner; Visit Provider Nurse Practitioner Family
DX: Z00.00 Encounter for general adult medical examination without abnormal findings (principal); R73.03 Prediabetes; Z11.4 Encounter for screening for human immunodeficiency virus [HIV]; Z11.59 Encounter for screening for other viral diseases; Z13.220 Encounter for screening for lipoid disorders
CPT/HCPCS: 80053; 80061; 85027; 86803; 87389; 83036

== ENCOUNTER 2022-07-11 10:09 | Outpatient (CLI) | payer OTHER, SELFPAY ==
--- NOTE | 2022-07-11 10:10 | DI.RAD_ITS ---
Exam(s) XR FOOT RT COMPLETE EXAM: XR FOOT RT COMPLETE CLINICAL HISTORY: RIGHT HEEL PAIN--M79.671. TECHNIQUE: 2D digital imaging was performed. COMPARISON: No exams were available for comparison FINDINGS: 3 views No evidence of fracture or diastasis of the Lisfranc joint. Bone density normal. No osseous lesions . No erosions. No pes planus. No radiopaque foreign body. No degenerative changes evident. IMPRESSION: No significant findings. DATA REPOSITORY: RADIATION DOSE DELIVERED:
[2022-07-11 16:01] LABS: Abs Immature Grans 0.02 10^3/uL (0.0-0.06); Absolute Lymphocyte Count 1.55 10^3/uL (1.2-3.4); Absolute Monocyte Count 0.55 10^3/uL (0.1-0.8); Absolute Neutrophil Count 3.67 10^3/uL (1.2-6.7); Basophils % 1.6; Eosinophils % 4.8; HGB 13.9 g/dL (13.5-17.5); Immature Grans % 0.3; MCHC 33.1 % (32.0-36.0); MCV 91 fL (80-95); Monocytes % 8.9; Neutrophils % 59.4; Platelet Count 274 10^3/uL (130-400); RBC 4.63 10^6/uL (4.36-5.78); RDW 12.5 % (11.8-14.1); RDW-SD 41.1 fL; WBC 6.19 10^3/uL (4.4-10.8)
== END 2022-07-11 10:10 | disposition home or self-care (01) ==
LOC: DI 10:40 → LBN 15:34
PROVIDERS: PCP Nurse Practitioner; Visit Provider Physician Assistant Medical
DX: M79.671 Pain in right foot (principal)
CPT/HCPCS: 73630; 85025

== ENCOUNTER 2022-08-09 00:11 | Emergency (ER) | payer OTHER, SELFPAY ==
[2022-08-09 00:18] VITALS: BP 139/74; PULSE 56; RESP 22; TEMP 36.5; O2SAT 98
--- NOTE | 2022-08-09 00:23 | ED.GENADUL_ITS ---
Discharge Plan Disposition Patient Disposition: HOME Condition: Improving Discharge Details Clinical Impression: Right ureteral stone Primary Care Provider: Romelia Lopes ED Provider: Tran Brunson Home Meds and New Rx's Prescriptions: New tamsulosin [Flomax] 0.4 mg capsule 0.4 mg PO DAILY Qty: 10 0RF oxycodone 5 mg tablet 5 mg PO Q6H PRN (Reason: pain) Qty: 7 0RF Continued epinephrine [EpiPen 2-Julio] 0.3 MG/0.3 ML auto-injector 0.3 mg IJ PRN PRNQty: 1 0RF fluticasone propion-salmeterol [Advair Diskus] 250-50 mcg/dose Blister With Device 1 ea INHALATION BID Discharge Instructions Instructions: Ureteral Stones (ED) Additional Instructions: Your CT imaging today revealed that you have a 3 mm kidney stone. Drink plenty of fluids and get plenty of rest. Alternate tylenol and motrin as needed and directed for pain. Take the oxycodone for pain not relieved with Tylenol or Motrin. Take the Zofran as needed and directed for nausea and vomiting. Take the Flomax once daily until follow-up with the urologist Dr. Shepard. You have been placed on urology follow-up list for reevaluation. Return immediately to the emergency department if you develop any worsening or new concerning symptoms. Stand Alone Forms: Work Release Referrals: Hilario Shepard MD [ [facility] STAFF PHYSICIAN] - Discharge Data Discharge Date/Time-TO BE ENTERED AT DEPARTURE: 08/09/22 02:32 Discharge Physician: Tran Brunson Medical Decision Making 52-year-old male with a history of GERD, anxiety and asthma presents for right hip, flank and right lower quadrant abdominal pain that started 1 hour ago at home while laying in bed. Admits to nausea but denies any fever, vomiting or urinary symptoms. He does states the pain is improved with urinating in the emergency department. Patient appears uncomfortable. His abdomen is soft but mildly tender in the right lower quadrant. He has normal range of motion of his hip bilaterally without limitation and normal to inspection. He is neurovascularly intact. He has no cauda equina symptoms. History of presentation does not appear consistent with AAA, septic arthritis, epidural abscess or cauda equina syndrome. Differential diagnosis includes kidney stone, sciatica, lumbar strain, appendicitis. We will place an IV, bolus IV fluids, screening labs, urinalysis and obtain CT renal colic and give a dose of IV Toradol and Zofran and reassess. Patient reassessed and his flank and abdominal pain is resolved but still complaining of right-sided hip pain. He is declining a dose of oxycodone. We will give a dose of Valium. Labs and imaging reviewed. Normal white blood cell count. Normal renal function. Urinalysis notes minimally high specific gravity but no evidence of infection or blood. CT reviewed and notes a 3 mm obstructing in the distal right ureter causing mild right hydroureteronephrosis. Patient states he feels better and is requesting to go home. He was given oxycodone and Zofran to go in addition to a strainer. He was given a dose of Flomax here and a prescription sent electronically to his pharmacy. He was placed on urology follow-up list. Usual and customary return precautions given prior to discharge. Medical Records Medical records reviewed: Yes I reviewed the patient's medical records. Imaging Data Radiologic Study: Radiologist's impression: CT Abdomen And Pelvis Without Contrast Exam date and time: 08/09/2022 1:02 AM Age: 52 years old Clinical indication: Abdominal pain; Flank; Right; Additional info: PT states right flank and right hip pain, acute onset TECHNIQUE: Imaging protocol: Computed tomography of the abdomen and pelvis without contrast. Radiation optimization: All CT scans at this facility use at least one of these dose optimization techniques: automated exposure control; mA and/or kV adjustment per patient size (includes targeted exams where dose is matched to clinical indication); or iterative reconstruction. COMPARISON: No relevant prior studies available. FINDINGS: Liver: Unremarkable liver. No mass identified. Gallbladder and bile ducts: The gallbladder is unremarkable. No calcified stones. No ductal dilation. Pancreas: No ductal dilation. No pancreatic lesion seen. Spleen: The spleen is unremarkable. No splenomegaly. Adrenal glands: The adrenal glands are unremarkable. No defined mass. Kidneys and ureters: There is a small 3 mm calculus at the distal right ureter (image 120, series 2), with mild right hydroureter and mild right hydronephrosis. Parapelvic cysts noted in the left kidney. Stomach and bowel: No obstruction. No mucosal thickening. Appendix: No evidence of appendicitis. Intraperitoneal space:? No free air. No significant fluid collection. Vasculature: No abdominal aortic aneurysm. Lymph nodes: No enlarged lymph nodes. Urinary bladder: Unremarkable as visualized. Reproductive: Unremarkable as visualized. Bones/joints: No acute fracture. Bilateral pars interarticularis defects are seen in the L5 vertebral body with associated grade 1 anterolisthesis of L5 on S1. Soft tissues: Unremarkable. IMPRESSION: 3 mm obstructing calculus in the right distal ureter causing mild right hydroureteronephrosis. Lab Data Lab results reviewed: Yes I reviewed the patient's lab results. Labs: Laboratory Tests Range/Units 08/09/22 08/09/22 08/09/22 00:47 00:47 00:47 WBC (4.4-10.8) 10^3/uL 6.83 RBC (4.36-5.78) 10^6/uL 4.39 Hgb (13.5-17.5) g/dL 13.3 L Hct (40.0-50.0) % 40.4 MCV (80-95) fL 92 MCH (27.0-33.0) pg 30.3 MCHC (32.0-36.0) % 32.9 RDW (11.8-14.1) % 12.2 Plt Count (130-400) 10^3/uL 267 MPV (8.0-11.0) fL 10.0 Immature Gran % 0.3 Neutrophils % 49.1 Lymphocytes % 31.3 Monocytes % 11.6 Eosinophils % 5.9 Basophils % 1.8 Nucleated RBC % (0.0-0.3) % 0.0 Absolute Neutrophils (1.2-6.7) 10^3/uL 3.36 Absolute Lymphocytes (1.2-3.4) 10^3/uL 2.14 Absolute Monocytes (0.1-0.8) 10^3/uL 0.79 Absolute Eosinophils (0.0-0.7) 10^3/uL 0.40 Absolute Basophils (0.0-0.2) 10^3/uL 0.12 Sodium (136-145) mmol/L 141 Potassium (3.5-5.1) mmol/L 3.8 Chloride (98-107) mmol/L 106 Carbon Dioxide (21.0-32.0) mmol/L 25.9 Anion Gap (3-11) mmol/L 9.1 BUN (7-18) mg/dL 36 H Creatinine (0.70-1.30) mg/dL 1.1 Est GFR (CKD-EPI 2020) (mL/min/1.73m2) 81.78 Glucose (74-106) mg/dL 126 H Calcium (8.5-10.1) mg/dL 8.7 Total Bilirubin (0.2-1.0) mg/dL 0.2 AST (15-37) U/L 15 ALT (16-63) U/L 28 Alkaline Phosphatase (46-116) U/L 72 Total Protein (6.4-8.2) g/dL 6.8 Albumin (3.4-5.0) g/dL 3.4 Urine Color (Yellow) Yellow Urine Clarity (Clear) Clear Urine pH (5-8) 6.0 Ur Specific Gill (1.005-1.025) >= 1.030 H Urine Protein (Negative) mg/dL Negative Urine Ketones (Negative) mg/dL Negative Urine Blood (Negative) Negative Urine Nitrite (Negative) Negative Urine Bilirubin (Negative) Negative Urine Urobilinogen (Up TO 0.2) EU/dL 0.2 Ur Leukocyte Esterase (Negative) Negative Urine Glucose (Negative) mg/dL Negative HPI General Mode of arrival: ambulatory . Date/Time Provider Initiated Documentation: 08/09/22 00:14 . Limitations to Documentation: no limitations . Information obtained by: patient . HPI Narrative: Patient is a 52-year-old male with a history of GERD and asthma who presents for right-sided hip pain with no radiation to his right flank and right lower quadrant of his abdomen that started approximately 1 hour ago. Patient states he was getting into bed and laying down when he noted right lateral hip pain. He states the pain was worse with moving and severe at that time. He states since onset the pain is progressed to involve his right flank and now right lower quadrant. He states the pain was 10/10 on arrival to the ED causing difficulty standing but now since urinating upon arrival to the emergency department his pain is now 3/10. He admits to nausea but denies any fever, vomiting, dysuria, hematuria, urinary frequency, bowel or bladder incontinence, diarrhea, leg weakness or numbness. He denies any known injury. He denies any testicular pain, swelling or lesions. Related Data Home Medications Medication Instructions Recorded Confirmed epinephrine 0.3 mg/0.3 mL 0.3 mg (0.3 mL) IJ PRN PRN #1 mL 02/14/15 08/09/22 injection, auto-injector (EpiPen 2-Julio) fluticasone 250 mcg-salmeterol 50 1 ea inhalation BID 11/26/19 08/09/22 mcg/dose blistr powdr for inhalation (Advair Diskus) oxycodone 5 mg tablet 5 mg PO Q6H PRN pain #7 tabs 08/09/22 tamsulosin 0.4 mg capsule (Flomax) 0.4 mg PO DAILY #10 caps 08/09/22 Previous Rx's Medication Instructions Recorded epinephrine 0.3 mg/0.3 mL 0.3 mg (0.3 mL) IJ PRN PRN #1 mL 02/14/15 injection, auto-injector (EpiPen 2-Julio) oxycodone 5 mg tablet 5 mg PO Q6H PRN pain #7 tabs 08/09/22 tamsulosin 0.4 mg capsule (Flomax) 0.4 mg PO DAILY #10 caps 08/09/22 Allergies Allergy/AdvReac Type Severity Reaction Status Date / Time almond Allergy Mild Verified 08/09/22 00:18 barley Allergy Mild Verified 08/09/22 00:18 corn Allergy Mild Verified 08/09/22 00:18 soybean Allergy Mild Hives,Itchy Unverified 08/09/22 00:18 milk AdvReac Intermediate Nausea Unverified 08/09/22 00:18 shellfish derived AdvReac Intermediate Swelling/Ed Unverified 08/09/22 00:18 shen hemp Allergy Severe Anaphylaxsi Uncoded 08/09/22 00:18 s pollen AdvReac Intermediate Hives Uncoded 08/09/22 00:18 General Stated Complaint: FlankPain VEE: 3 Review of Systems All systems reviewed & are unremarkable except as noted in HPI and below Constitutional Constitutional: Reports as per HPI, Denies chills, Denies excessive sweating, Denies fatigue and Denies fever(s) Eyes Eyes: Denies blurry vision ENT Ears, Nose, Mouth, and Throat: Denies dizziness, Denies sore throat and Denies throat swelling Cardiovascular Cardiovascular: Denies chest pain and Denies dyspnea Respiratory Respiratory: Denies cough and Denies dyspnea Gastrointestinal Gastrointestinal: Reports abdominal pain, Denies diarrhea, Reports nausea and Denies vomiting Genitourinary Genitourinary: Denies hematuria, Denies dysuria and Reports flank pain Musculoskeletal Musculoskeletal: Denies back pain and Denies numbness Comments: R hip pain Integumentary/Breasts Skin/Breast: Denies lesions and Denies rash Neurologic Neurologic: Denies behavioral changes, Denies confusion, Denies dizziness, Denies localized weakness and Denies numbness Psychiatric Psychiatric: Denies behavioral changes, Denies confusion and Denies depression Endocrine Endocrine: Denies excessive sweating and Denies fatigue Hematologic/Lymphatic Hematologic/Lymphatic: Denies easy bruising and Denies lymphadenopathy Allergic/Immunologic Allergic/Immunologic: Denies throat swelling PFSH All Active Problems (Updated 08/09/22 @ 02:03 by Tran Brunson DO) Right ureteral stone (Acute) Screening for colon cancer (Acute) History of excessive cerumen (Acute) GERD (gastroesophageal reflux disease) (Chronic) Asthma, mild (Acute) Obsessive compulsive disorder (Acute) Anxiety (Chronic) Eczema (Acute) Muscle spasm of both lower legs (Acute) Prediabetes (Acute) Knee pain, right (Acute) Light headedness (Acute) Nasal vestibulitis (Acute) Impacted cerumen, right ear (Acute) Near syncope (Acute) MCL sprain of right knee (Acute) Medical History Asthma Closed fracture of 5th metacarpal Diarrhea Surgical History Hx of colonoscopy Hx of endoscopy Family History Father Heart disease Diabetes Mother Heart disease Social History Smoking/Tobacco Use Status: Former Tobacco Use Smoking risk assessment performed?: Yes Alcohol Intake: current Alcohol Intake frequency: a few times a week Alcohol type: wine and hard liquor Drug use: Occasionally Substance use type: marijuana Household members: spouse Current gender identity: male What is your relationship status?: Panel score (0-1 are the most socially isolated patients): 1 Do you feel safe at home: Yes Do you feel safe in your relationship?: Yes Exam Const General: cooperative and uncomfortable Orientation: alert, awake and oriented x3 HENMT Head: normal to inspection Ears: hearing grossly normal bilaterally and external ears normal General nose exam: external nose normal Face and sinus: normal facial exam Mouth: oral mucosae normal Teeth and gingiva: dentition normal Eyes General: appearance normal, both eyes and all related structures Eyelids: eyelids normal EOM: EOM intact bilaterally Neck Neck: normal visual inspection Lymphatic: no lymphadenopathy noted Chest Chest: normal inspection of the chest Resp Effort & Inspection: normal respiratory effort and able to speak in complete sentences Auscultation: clear to auscultation bilaterally Cardio Rate: bradycardic Rhythm: regular rhythm GI Inspection: normal to inspection Palpation: soft, not firm, no guarding, no hepatosplenomegaly, no masses and tender in the RLQ and suprapubicly Auscultation: hypoactive bowel sounds Back/Spine/Pelvis Back: no CVA tenderness Thoracic/Lumbar Spine: thoracic and lumbar spine normal to inspection Skin General skin exam: no rashes or lesions noted Neuro General: patient alert and patient awake Cognition: normal cognition Speech: speech normal Gait: normal gait Motor: muscle tone normal throughout and strength 5/5 throughout Sensory Exam: no sensory deficits noted DTR's: Rt Patellar: 1+, Lt Patellar: 1+, Rt Ankle: 1+ and Lt Ankle: 1+ Extrem General: normal to inspection, full ROM and capillary refill normal Other: Normal range of motion at right hip without pain or limitation with range of motion. Bilateral PT/DP pulses intact Psych Appearance: grossly normal Mental Status: mental status grossly normal Speech and Movement: speech and movement normal Affect: normal affect Thought Process: normal Course Vital Signs Vital signs: Vital Signs Temperature 97.7 F 08/09/22 00:18 Pulse 56 L 08/09/22 00:18 Respiratory Rate 08/09/22 00:18 Blood Pressure 139/74 08/09/22 00:18 Pulse Oximetry 98 08/09/22 00:18 Temperature 97.7 F 08/09/22 00:18 Temperature Source Temporal Artery Scan 08/09/22 00:18 Pulse 56 L 08/09/22 00:18 Respiratory Rate 08/09/22 00:18 Blood Pressure 139/74 08/09/22 00:18 Blood Pressure Position Sitting 08/09/22 00:18 Pulse Oximetry 98 08/09/22 00:18 Oxygen Delivery Method Room Air 08/09/22 00:18 Oxygen Flow Rate 0 08/09/22 00:18 Pain Level 9 08/09/22 00:18
--- NOTE | 2022-08-09 00:30 | DI.CT_ITS ---
Exam(s) CT RENAL COLIC WO EXAM: CT RENAL COLIC WO CLINICAL HISTORY: R flank/abd/hip pain. TECHNIQUE: Imaging Protocol: Axial computed tomography images with coronal and sagittal reformatted images were created and reviewed. CONTRAST MATERIAL: Noncontrast COMPARISON: CT CT CAROTID NECK CTA from 09/04/2020 FINDINGS: ABDOMEN: Lung Bases: Normal where visualized. Liver: Normal attenuation. No measurable mass. Gallbladder and biliary tract: No radiodense calculus or dilation. Pancreas: Normal density, no calcifications or inflammatory process. Spleen: Normal. Kidneys: Normal size, contour and axis. Mild right hydronephrosis secondary to a 3 millimeter calculu s in the distal right ureter. No additional calculi are seen. Parapelvic cysts are noted in the lef t kidney. No masses seen. Adrenal glands: No masses seen. Abdominal Aorta: Abdominal portion non-dilated. PELVIS: Bladder: Symmetric distention, no gross wall thickening. No evidence of stones.No visible mass. Bowel: Mild sigmoid diverticulosis. No obstruction or bowel wall thickening. Reproductive: Peritoneal cavity: No ascites, collection or mesenteric inflammatory response. Bones: Bilateral L5 spondylolysis and mild spondylolisthesis. Moderate L5-S1 disc space narrowing.. IMPRESSION: Mild right hydronephrosis secondary to a 3 millimeter stone in the distal ureter. RADIATION DOSE DELIVERED: 888.19mGy.cm Total DLP DATA REPOSITORY: All CT scans at this facility are submitted to the National Radiology Data Registry (NRDR) Dose Index Registry (DIR) with the [employer] (A[employer]). RADIATION OPTIMIZATION: All CT scans at this facility use at least one of these dose optimization te chniques: automated exposure control; mA and/or kV adjustment per patient size (includes targeted exa ms where dose is matched to clinical indication); or iterative reconstruction.
[2022-08-09] MEDS: Normal Saline 1,000 ML 1000 ML IV (00:51)
[2022-08-09] MEDS: Ketorolac 30 MG/ML VIAL IVP (00:51)
[2022-08-09] MEDS: Ondansetron 4 MG/2 ML VIAL IVP (00:51)
[2022-08-09 01:05] LABS: Abs Immature Grans 0.02 10^3/uL (0.0-0.06); Absolute Basophil Count 0.12 10^3/uL (0.0-0.2); Absolute Lymphocyte Count 2.14 10^3/uL (1.2-3.4); Absolute Monocyte Count 0.79 10^3/uL (0.1-0.8); Absolute Neutrophil Count 3.36 10^3/uL (1.2-6.7); Basophils % 1.8; Eosinophils % 5.9; HCT 40.4 % (40.0-50.0); HGB 13.3 g/dL (13.5-17.5); Immature Grans % 0.3; Lymphocytes % 31.3; MCH 30.3 pg (27.0-33.0); MCHC 32.9 % (32.0-36.0); MCV 92 fL (80-95); Monocytes % 11.6; Neutrophils % 49.1; Platelet Count 267 10^3/uL (130-400); RBC 4.39 10^6/uL (4.36-5.78); RDW 12.2 % (11.8-14.1); RDW-SD 41.5 fL; WBC 6.83 10^3/uL (4.4-10.8)
[2022-08-09 01:06] LABS: Bilirubin Negative (Negative); Blood Negative (Negative); Clarity Clear (Clear); Glucose Negative (Negative); Ketones Negative (Negative); Leukocyte Esterase Negative (Negative); Nitrite Negative (Negative); Specific Gravity >= 1.030 (1.005-1.025); Urobilinogen 0.2 EU/dL (Up TO 0.2)
[2022-08-09 01:19] LABS: ALT 28 U/L (16-63); AST 15 U/L (15-37); Albumin 3.4 g/dL (3.4-5.0); Alkaline Phosphatase 72 U/L (46-116); Anion Gap 9.1 mmol/L (3-11); BUN 36 mg/dL (7-18); Bilirubin, Total 0.2 mg/dL (0.2-1.0); CO2 25.9 mmol/L (21.0-32.0); CREATININE 1.1 mg/dL (0.70-1.30); Calcium 8.7 mg/dL (8.5-10.1); Chloride 106 mmol/L (98-107); Estimated GFR 81.78 (mL/min/1.73m2); Glucose 126 mg/dL (74-106); Potassium 3.8 mmol/L (3.5-5.1); Sodium 141 mmol/L (136-145); Total Protein 6.8 g/dL (6.4-8.2)
[2022-08-09] MEDS: diazePAM 5 MG TAB PO (01:44)
--- NOTE | 2022-08-09 01:49 | DI.VRAD_ITS ---
PROCEDURE INFORMATION: Exam: CT Abdomen And Pelvis Without Contrast Exam date and time: 08/09/2022 1:02 AM Age: 52 years old Clinical indication: Abdominal pain; Flank; Right; Additional info: PT states right flank and right hip pain, acute onset TECHNIQUE: Imaging protocol: Computed tomography of the abdomen and pelvis without contrast. Radiation optimization: All CT scans at this facility use at least one of these dose optimization techniques: automated exposure control; mA and/or kV adjustment per patient size (includes targeted exams where dose is matched to clinical indication); or iterative reconstruction. COMPARISON: No relevant prior studies available. FINDINGS: Liver: Unremarkable liver. No mass identified. Gallbladder and bile ducts: The gallbladder is unremarkable. No calcified stones. No ductal dilation. Pancreas: No ductal dilation. No pancreatic lesion seen. Spleen: The spleen is unremarkable. No splenomegaly. Adrenal glands: The adrenal glands are unremarkable. No defined mass. Kidneys and ureters: There is a small 3 mm calculus at the distal right ureter (image 120, series 2), with mild right hydroureter and mild right hydronephrosis. Parapelvic cysts noted in the left kidney. Stomach and bowel: No obstruction. No mucosal thickening. Appendix: No evidence of appendicitis. Intraperitoneal space: No free air. No significant fluid collection. Vasculature: No abdominal aortic aneurysm. Lymph nodes: No enlarged lymph nodes. Urinary bladder: Unremarkable as visualized. Reproductive: Unremarkable as visualized. Bones/joints: No acute fracture. Bilateral pars interarticularis defects are seen in the L5 vertebral body with associated grade 1 anterolisthesis of L5 on S1. Soft tissues: Unremarkable. IMPRESSION: 3 mm obstructing calculus in the right distal ureter causing mild right hydroureteronephrosis. Dictated and Authenticated by: Malena Cardenas MD. Ordering:CHEYENNE Mayfield MD
[2022-08-09] MEDS: Tamsulosin 0.4 MG CAPCR PO (02:15)
[2022-08-09] MEDS: Ondansetron O.D.T. 4 MG TABEF, 3 TABS/BTL PO (02:16)
[2022-08-09 02:27] VITALS: BP 106/64; PULSE 54; RESP 14; TEMP 36.4; O2SAT 98
== END 2022-08-09 02:32 | disposition home or self-care (01) ==
PROVIDERS: Emergency Provider Physician Assistant; PCP Nurse Practitioner
DX: N20.1 Calculus of ureter (principal); J45.909 Unspecified asthma, uncomplicated; M25.551 Pain in right hip; Z79.51 Long term (current) use of inhaled steroids; Z87.891 Personal history of nicotine dependence
CPT/HCPCS: 80053; 96361; 96374; 96375; 99284; 74176; 81003; 85025; J1885; J2405

== ENCOUNTER 2022-08-16 16:32 | Outpatient (REF) | payer OTHER, SELFPAY ==
[2022-08-21 15:19] LABS: Source: Passed Stone
== END 2022-08-16 16:33 | disposition home or self-care (01) ==
LOC: LBN 16:32
PROVIDERS: Visit Provider Nurse Practitioner Gerontology
DX: N20.1 Calculus of ureter (principal)
CPT/HCPCS: 82365

== ENCOUNTER 2022-09-13 06:22 | Day surgery (SDC) | payer OTHER, SELFPAY ==
--- NOTE | 2022-09-12 21:29 | W.PM.DSUDISC ---
Date of service: 09/13/22 Time of Service: 07:55 Discharge Plan Disposition Patient Disposition: HOME Condition: Good Discharge Details Reason For Visit: Screening colonoscopy routine health maintenance Attending Provider: Jamin Henriquez Primary Care Provider: Artem De La Cruz RN,Lev Home Meds and New Rx's Prescriptions: Continued epinephrine [EpiPen 2-Julio] 0.3 MG/0.3 ML auto-injector 0.3 mg IJ PRN PRNQty: 1 0RF fluticasone propion-salmeterol [Advair Diskus] 250-50 mcg/dose blister with device 1 ea INHALATION BID PRN Discharge Instructions Additional Instructions: 1. If tolerated, consume a soft, low fiber diet for 1-2 days. [address] Do not drive, drink alcohol, operate machinery, make critical decisions, or do activities that require coordination or balance for 24 hours. 3. Because air was put into your colon during the procedure, expelling air from your rectum (passing gas or farting) is normal. 4. You may not have a bowel movement for 1-3 days because of the colonoscopy prep. This is normal. 5. Go directly to the emergency room if you notice any of the following: Develop chills (warm to touch), or if you have a thermometer and your temperature is above 101 Difficulty breathing or difficultly swallowing Persistent vomiting Severe abdominal pain, other than gas cramps Severe chest pain Black, tarry stools Any bleeding ? exceeding one tablespoon 6. Call your physician if the site where your intravenous was started becomes red, swollen, painful, and warm to touch. 7. Your physician has reviewed your pre-procedure medications. Please continue to take those medications as previously ordered. You will be given specific information/education regarding any changes to your medications before leaving. Activity:: Activity as Tolerated Diet:: As Tolerated Discharge Orders Discharge Orders: Discharge Order (Routine); Ordered 09/12/22 Ordered By: Jamin Henriquez DS: Diagnosis Discharge Diagnosis (1) Screening for colon cancer: Status: Acute Asessment and Plan: Normal colonoscopy, recommend follow-up in 10 years
--- NOTE | 2022-09-12 21:31 | W.COLOREPORT ---
Date of service: 09/13/22 Time of Service: 07:57 Colonoscopy Report Date of procedure: 09/13/22 Pre-op diagnosis general: Screening colonoscopy Post-op diagnosis procedure note: same Procedure: Screening colonoscopy routine health maintenance Surgeon: Jamin Henriquez Anesthesia Type: General:No Airway Estimated blood loss (mL): 0 Pathology: none sent Complications: None Disposition: same day Indications: Carlin is a 52-year-old male here for screening colonoscopy Prep: Miralax/Dulcolax Procedure Start Time: 07:33 Procedure End Time: 07:46 Retraction Time: 11 Findings: Normal screening colonoscopy Procedure Description: After the induction of monitored anesthetic care, and with the patient in left lateral decubitus position, I began by performing an external anorectal exam.? Perineum and skin were normal, as was the anal verge.? There was no evidence of external hemorrhoids.? Next, I performed a digital rectal exam.? I did not appreciate any abnormal findings.? Next, I advanced a colonoscope into the rectal vault.? I performed retroflexion.? He had some very mild internal hemorrhoids.? Using insufflation, I then advanced the colonoscope beyond the rectal folds and into the sigmoid colon before advancing towards the cecum.? The quality of the prep was excellent.? The scope was noted to be in the cecum by identification of the ileocecal valve and appendiceal orifice.? I then began withdrawing the colonoscope using repeated irrigation as necessary for full evaluation of the colonic mucosa. ?Once the scope was withdrawn to the level of the rectum, great care was taken to examine portions of the rectal folds.? Finally, the scope was withdrawn and the patient was brought to the same-day surgery recovery unit as the anesthetic wore off. ?The findings and instructions were shared with the patient prior to discharge.
[2022-09-13 06:30] VITALS: BP 104/70; PULSE 72; RESP 16; TEMP 36.5; O2SAT 97
[2022-09-13] MEDS: Lactated Ringers 1,000 ML 80 ML IV (06:45)
--- NOTE | 2022-09-13 06:57 | W.ANESPRE ---
General Info Date of Service Date Performed: 09/13/22 Height: 5 ft 10 in Weight: 83.8 kg Body Mass Index (BMI): 26.5 Surgical Procedure: Operation Date: 09/13/22 07:35 Proposed Procedure Side Surgeon geo Henriquez MD Meds Allergies and Home Medications Allergies Allergy/AdvReac Type Severity Reaction Status Date / Time almond Allergy Mild Verified 09/13/22 06:29 barley Allergy Mild Verified 09/13/22 06:29 corn Allergy Mild Verified 09/13/22 06:29 soybean Allergy Mild Hives,Itchy Verified 09/13/22 06:29 milk AdvReac Intermediate Nausea Verified 09/13/22 06:29 shellfish derived AdvReac Intermediate Swelling/Ed Verified 09/13/22 06:29 shen hemp Allergy Severe Anaphylaxsi Uncoded 08/29/22 08:27 s pollen AdvReac Intermediate Hives Uncoded 08/29/22 08:27 Home Medication Medication Instructions Recorded epinephrine 0.3 mg/0.3 mL 0.3 mg (0.3 mL) IJ PRN PRN #1 mL 02/14/15 injection, auto-injector (EpiPen 2-Julio) fluticasone 250 mcg-salmeterol 50 1 ea inhalation BID PRN 08/16/22 mcg/dose blistr powdr for inhalation (Advair Diskus) Current Visit Medications: Current Medications Generic Name Dose Route Start Last Admin Trade Name Freq PRN Reason Stop Dose Admin Hyoscyamine Sulfate 0.125 mg 09/12/22 21:31 Hyoscyamine 0.125 Mg Sl/Oral/Chew SL DIRECTED PRN Ringer's Solution 1,000 mls @ 80 mls/hr 09/13/22 06:00 09/13/22 06:45 IV 09/13/22 23:59 80 mls/hr INFUSION THEA Administration IV Miscellaneous Supplies 1 each 09/13/22 06:00 Iv Access IV 09/13/22 23:59 DIRECTED THEA Ondansetron HCl 4 mg 09/12/22 21:31 Ondansetron 4 Mg/2 Ml Vial IVP Q4H PRN PRN Nausea / Vomiting Sodium Chloride 0 ml 09/13/22 06:00 Normal Saline Flush 10 Ml Syr IV 09/13/22 23:59 PRN PRN Sodium Chloride 0 ml 09/13/22 06:00 Normal Saline 10 Ml Vial IJ 09/13/22 23:59 DIRECTED PRN Sterile Water 0 ml 09/13/22 06:00 Water,Injection,Sterile 10 Ml Vial IJ 09/13/22 23:59 DIRECTED PRN PFSH Active Problems Active Problems: Problem Status Onset Code Screening for colon cancer Z12.11 History of excessive cerumen Z78.9 GERD (gastroesophageal reflux disease) K21.9 Asthma, mild J45.909 Obsessive compulsive disorder F42.9 Anxiety F41.9 Eczema L30.9 Muscle spasm of both lower legs M62.838 Prediabetes R73.03 Knee pain, right M25.561 Light headedness R42 Nasal vestibulitis J34.89 Impacted cerumen, right ear H61.21 Near syncope R55 MCL sprain of right knee S83.411A Medical History Medical History Asthma Closed fracture of 5th metacarpal Diarrhea Surgical History Surgical History Hx of colonoscopy Hx of endoscopy Tobacco Smoking/Tobacco Use Status: Former Tobacco Use Alcohol Alcohol Intake: current Alcohol intake frequency: a few times a week Alcohol type: wine and hard liquor Substance Use Substance use: Occasionally Substance use type: marijuana Vital Signs and Lab Results Vital Signs Most Recent Vital Signs in EMR: Most Recent Vital Signs Temp Pulse Resp BP Pulse Ox 36.5 C 72 16 104/70 97 09/13/22 06:30 09/13/22 06:30 09/13/22 06:30 09/13/22 06:30 09/13/22 06:30 Lab Results Blood Type / Crossmatch: No Data to Display Complete Blood Count: No Data to Display Complete Metabolic Panel: No Data to Display Liver Function Panel: No Data to Display Coagulation Panel: No Data to Display Cardiac Panel: No Data to Display Arterial Blood Gas: No Data to Display Venous Blood Gas: No Data to Display Pancreas Panel: No Data to Display Thyroid Panel: No Data to Display Infectious Disease: No Data to Display Blood Cultures: No Data to Display Toxicology Panel: No Data to Display Anesthesia Assessment and Plan Anesthesia History Personal History: No History of Anesthesia Complications Family History: No Family History of Anesthesia Complications Exercise Tolerance Exercise Tolerance: Metabolic Equivalents>4 Pertinent Negatives Pertinent Negatives: No Symptoms of GERD, No Major Cardiovascular Symptoms or Complaints, No Major Pulmonary Symptoms or Complaints and No History of CVA/TIA Cardiac & Pulmonary Exam Cardiac Exam: Normal S1/S2 Heart Sounds Pulmonary Exam: Clear Bilateral Breath Sounds Implantable Cardiac Device Does patient have a Pacemaker or an ICD?: No Airway Exam Known Difficult Airway: No Mallampati Class: 2 Mouth Opening: Normal (> 3cm) Thyromental Distance: Greater than 3 cm Neck Range of Motion: Full ROM Neck Circumference: Normal Teeth Condition: Normal Dentition ASA Classification ASA Score: ASA 2 Emergency Case?: No NPO Status NPO Status: NPO Clears >2 hours, Solids >8 hours Anesthesia Plan Resuscitation Status: Full Code Anesthesia Technique: General Anesthesia Airway Planned: Natural Airway Monitors Used: Standard Monitors
[2022-09-13 07:55] VITALS: BP 106/78; PULSE 72; RESP 16; TEMP 36.7; O2SAT 97
[2022-09-13 08:00] VITALS: BMI 26.5
[2022-09-13 08:16] VITALS: BP 102/74; PULSE 53; RESP 16; TEMP 37; O2SAT 99
--- NOTE | 2022-09-13 08:53 | W.ANESPOSTOP ---
Postoperative Evaluation Date, Time and Location Date Performed: 09/13/22 Time Performed: 08:54 Patient Location: Day Surgery Unit Vital Signs Most Recent Imported Vital Signs: Most Recent Vital Signs Temp Pulse Resp BP Pulse Ox 37 C 53 L 16 102/74 99 09/13/22 08:16 09/13/22 08:16 09/13/22 08:16 09/13/22 08:16 09/13/22 08:16 Pain Score Most Recent Pain Score: Most Recent Pain Score Pain Level 0 09/13/22 08:16 Assessment Mental Status: Awake (Alert & Oriented to Patient Baseline) Airway and Respiratory Function: Patent airway with normal (patient baseline) respiratory exam Cardiovascular Function: Hemodynamically Stable Hydration Status: Adequately Hydrated Nausea & Vomiting: No Nausea or Vomiting Pain: Pt. Denies Any Pain Peripheral Nerve Block: Patient did not receive a nerve block
== END 2022-09-13 08:51 | disposition home or self-care (01) ==
PROVIDERS: Visit Provider Surgery
PROC: 0DJD8ZZ Inspection of Lower Intestinal Tract, Via Natural or Artificial Opening Endoscopic (ICD-10-PCS; CPT 45378; principal; 2022-09-13 07:30)
DX: Z12.11 Encounter for screening for malignant neoplasm of colon (principal); K64.8 Other hemorrhoids
CPT/HCPCS: 45378

== ENCOUNTER 2022-10-16 18:01 | Observation (INO) | payer OTHER, SELFPAY ==
[2022-10-16] VITALS (43 sets, daily range): BP systolic 109–130; BP diastolic 69–75; PULSE 47–66; RESP 12–36
--- NOTE | 2022-10-16 18:00 | RT.EKG_ITS ---
APPROVED REPORT Exam: Resting ECG Reason for Exam: Syncope Patient Location: E HR:58 bpm ECG Measurements Heart Rate 58 AXIS OH 139 P 66 QRSd 153 QRS -23 QT 448 T 15 QTc 439 Conclusion Sinus bradycardia...rate< 60 Probable left atrial enlargement...P >50mS, <-0.10mV V1 Right bundle branch block...QRSd>120, terminal axis(90,270) Physician: Sinus bradycardia, right bundle branch block, no STEMI. Unchanged from prior EKG 2 years ago, however unchanged from EKG from 2017
[2022-10-16] MEDS: Aspirin 81 MG CHEW 324 MG CH (18:15)
[2022-10-16 18:21] LABS: Abs Immature Grans 0.02 10^3/uL (0.0-0.06); Absolute Eosinophil Count 0.17 10^3/uL (0.0-0.7); Absolute Lymphocyte Count 1.55 10^3/uL (1.2-3.4); Absolute Monocyte Count 0.79 10^3/uL (0.1-0.8); Absolute Neutrophil Count 5.14 10^3/uL (1.2-6.7); Basophils % 1.3; Eosinophils % 2.2; HCT 39.7 % (40.0-50.0); HGB 13.1 g/dL (13.5-17.5); Immature Grans % 0.3; Lymphocytes % 19.9; MCH 30.5 pg (27.0-33.0); MCV 93 fL (80-95); MPV 10.1 fL (8.0-11.0); Monocytes % 10.2; Neutrophils % 66.1; Platelet Count 267 10^3/uL (130-400); RBC 4.29 10^6/uL (4.36-5.78); RDW 12.4 % (11.8-14.1); RDW-SD 42.3 fL; WBC 7.77 10^3/uL (4.4-10.8)
[2022-10-16] MEDS: Lactated Ringers 1,000 ML 1000 ML IV (18:26)
[2022-10-16 18:43] LABS: ALT 29 U/L (16-63); AST 17 U/L (15-37); Albumin 3.5 g/dL (3.4-5.0); Alkaline Phosphatase 75 U/L (46-116); Anion Gap 7.7 mmol/L (3-11); BUN 29 mg/dL (7-18); Bilirubin, Total 0.3 mg/dL (0.2-1.0); CO2 28.3 mmol/L (21.0-32.0); CREATININE 1.3 mg/dL (0.70-1.30); Calcium 8.7 mg/dL (8.5-10.1); Chloride 104 mmol/L (98-107); Estimated GFR 66.93 (mL/min/1.73m2); Glucose 126 mg/dL (74-106); Lipase 72 U/L (73-393); Magnesium 1.8 mg/dL (1.8-2.4); Potassium 3.7 mmol/L (3.5-5.1); Sodium 140 mmol/L (136-145); Total Protein 6.7 g/dL (6.4-8.2); Troponin I < 50 ng/L (<or=60)
[2022-10-16 18:59] LABS: D-Dimer 127 ng/mlFEU (<500)
--- NOTE | 2022-10-16 19:20 | DI.RAD_ITS ---
Exam(s) XR CHEST 2V PA LATERAL EXAM: XR CHEST 2V PA LATERAL CLINICAL HISTORY: syncope. TECHNIQUE: 2D digital imaging was performed. COMPARISON: CR CHEST 2 VIEWS PA,LAT from 09/23/2017 FINDINGS: 2 views: Heart size is normal. The mediastinum is not widened. Lungs are clear. No infiltrates nor pleural effusions. IMPRESSION: No acute pulmonary findings. DATA REPOSITORY: RADIATION DOSE DELIVERED:
--- NOTE | 2022-10-16 19:37 | W.ED.GENAD ---
Discharge Plan Discharge Details Chief Complaint: Chest Pain Clinical Impression: Syncope Primary Care Provider: Artem De La Cruz RN,[facility] ED Provider: Chava Bettencourt Home Meds and New Rx's Prescriptions: No Action epinephrine [EpiPen 2-Julio] 0.3 MG/0.3 ML auto-injector 0.3 mg IJ PRN PRNQty: 1 0RF fluticasone propion-salmeterol [Advair Diskus] 250-50 mcg/dose blister with device 1 ea INHALATION BID PRN Medical Decision Making 52-year-old male with a past medical history of asthma, and a few episodes of syncope in the past, presents today for evaluation of syncope. 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 It was quite a busy night and he was running around fairly aggressively trying to attempt multiple patient needs. During this he had an episode where he got extremely lightheaded and fell down towards the ground. He was able to catch himself, he tried to get back up but he was not able to get up. He laid himself down to the ground. Patient was immediately brought to the ER. He was diaphoretic and pale. He did admit to a slight chest twinge sensation, but this is since resolved. He denies any headache, numbness tingling or weakness now. He denies any recent surgeries, procedures, or long trips. No other complaints at this time. No family history of sudden or early cardiac . Of note he did have a syncopal event like this 1 or 2 years ago where I saw him then, his work-up was benign then, but unfortunately he was never able to complete the outpatient event recorder that was requested at that time. M demonstrates well-appearing male, no new focal neurologic deficits. Mucous membranes relatively moist. Vital signs stable. Bedside echo shows no evidence of wall motion abnormalities pericardial effusion or other abnormality of significance. EKG shows a right bundle branch block, this is new compared to his most recent EKG within the last 2 years however upon review of an EKG from 2017 when he had an anaphylactic episode he also demonstrated an equivalent right bundle branch block. Differential includes PE, dysrhythmia, dehydration. Of note the patient does admit that he has been under a significant amount of stress over the last few days. His dog recently , and this evening has been quite stressful in the emergency department due to the patient volume. ACS is on the differential but less likely. Will monitor closely gently rehydrate get a D-dimer and reassess. 7:58 PM Laboratory work-up is returned unremarkable. Troponin normal, D-dimer normal, electrolytes normal. Bedside echo was unremarkable. We will wait for repeat troponin and then reassess. I do feel the patient would benefit from outpatient echo and event monitor. Patient will be signed out to my colleague Tran Brunson for follow-up on labs and imaging. EKG 18: 07 Sinus bradycardia, right bundle branch block, no STEMI. Unchanged from prior EKG 2 years ago, however unchanged from EKG from 2017. Sign Out Yes HPI General Date/Time Provider Initiated Documentation: 10/16/22 18:03. HPI Narrative: 52-year-old male with a past medical history of asthma, and a few episodes of syncope in the past, presents today for evaluation of syncope. 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 It was quite a busy night and he was running around fairly aggressively trying to attempt multiple patient needs. During this he had an episode where he got extremely lightheaded and fell down towards the ground. He was able to catch himself, he tried to get back up but he was not able to get up. He laid himself down to the ground. Patient was immediately brought to the ER. He was diaphoretic and pale. He did admit to a slight chest twinge sensation, but this is since resolved. He denies any headache, numbness tingling or weakness now. He denies any recent surgeries, procedures, or long trips. No other complaints at this time. No family history of sudden or early cardiac . Of note he did have a syncopal event like this 1 or 2 years ago where I saw him then, his work-up was benign then, but unfortunately he was never able to complete the outpatient event recorder that was requested at that time. Related Data Home Medications Medication Instructions Recorded Confirmed epinephrine 0.3 mg/0.3 mL 0.3 mg (0.3 mL) IJ PRN PRN #1 mL 02/14/15 10/16/22 injection, auto-injector (EpiPen 2-Julio) fluticasone 250 mcg-salmeterol 50 1 ea inhalation BID PRN 08/16/22 10/16/22 mcg/dose blistr powdr for inhalation (Advair Diskus) Previous Rx's Medication Instructions Recorded epinephrine 0.3 mg/0.3 mL 0.3 mg (0.3 mL) IJ PRN PRN #1 mL 02/14/15 injection, auto-injector (EpiPen 2-Julio) Allergies Allergy/AdvReac Type Severity Reaction Status Date / Time almond Allergy Mild Verified 10/16/22 18:34 barley Allergy Mild Verified 10/16/22 18:34 corn Allergy Mild Verified 10/16/22 18:34 soybean Allergy Mild Hives,Itchy Verified 10/16/22 18:34 milk AdvReac Intermediate Nausea Verified 10/16/22 18:34 shellfish derived AdvReac Intermediate Swelling/Ed Verified 10/16/22 18:34 shen hemp Allergy Severe Anaphylaxsi Uncoded 10/16/22 18:34 s pollen AdvReac Intermediate Hives Uncoded 10/16/22 18:34 General Stated Complaint: Chest Pain VEE: 3 Review of Systems All systems reviewed & are unremarkable except as noted in HPI and below PFSH All Active Problems (Updated 10/16/22 @ 20:00 by Chava Bettencourt DO) Syncope (Chronic) Screening for colon cancer (Acute) History of excessive cerumen (Acute) GERD (gastroesophageal reflux disease) (Chronic) Asthma, mild (Acute) Obsessive compulsive disorder (Acute) Anxiety (Chronic) Eczema (Acute) Muscle spasm of both lower legs (Acute) Prediabetes (Acute) Knee pain, right (Acute) Light headedness (Acute) Nasal vestibulitis (Acute) Impacted cerumen, right ear (Acute) Near syncope (Acute) MCL sprain of right knee (Acute) Medical History Asthma Closed fracture of 5th metacarpal Diarrhea Surgical History Hx of colonoscopy Hx of endoscopy Family History Father Heart disease Diabetes Mother Heart disease Social History Smoking/Tobacco Use Status: Former Tobacco Use Smoking risk assessment performed?: Yes Alcohol Intake: current Alcohol Intake frequency: a few times a week Alcohol type: wine and hard liquor Drug use: Occasionally Substance use type: marijuana Household members: spouse Current gender identity: male What is your relationship status?: Panel score (0-1 are the most socially isolated patients): 1 Do you feel safe at home: Yes Do you feel safe in your relationship?: Yes Exam Narrative Exam Narrative: 1.Const: Well-nourished, Well-developed, appearing stated age 2.Eyes: PERRL, no conjunctival injection, and symmetrical lids. 3.ENT: Atraumatic external nose and ears. Moist MM. Neck: Symmetric, trachea midline, No thyromegaly. 4.CVS: +S1/S2, No murmurs or gallops. Peripheral pulses 2+ and equal in all extremities. Brisk capillary refill in all extremities. 5.RESP: Unlabored respiratory effort. Clear to auscultation bilaterally. No wheezes rales or rhonchi 6.GI: Soft, Nontender/Nondistended, No hepatosplenomegaly. No guarding or rebound. 7.MSK: Normocephalic/Atraumatic, Extremities w/o deformity or ttp No cyanosis or clubbing, Normal movement of all extremities 8.Skin: Warm, Dry. No rashes or lesions. 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 Sensation grossly intact, no focal neurologic deficits. All 6 cardinal planes of vision are fully intact. No evidence of rotatory or vertical nystagmus. The patient demonstrated a normal caqrbv-rkzf-zesdeh, good dexterity. There was no evidence of dysdiadochokinesia. Patient was able to ambulate without difficulty. There was no wide-based gait. Romberg testing was normal. Lxip-on-ytba testing was normal. Sensation was intact bilaterally as well as muscle strength bilaterally for all extremities. Patient was able to verbalize butter cup with no slurring, or miss pronunciation. 10.Psych: (AAO) x3. Appropriate mood and affect Course Vital Signs Vital signs: Vital Signs Pulse 62 10/16/22 18:03 Blood Pressure 130/73 10/16/22 18:03 Pulse 60 10/16/22 19:01 Pulse 56 L 10/16/22 19:30 Respiratory Rate 17 10/16/22 19:30 Respiratory Effort Short of Breath 10/16/22 18:25 Respiratory Depth Normal 10/16/22 18:25 Respiratory Pattern Normal 10/16/22 18:25 Blood Pressure 110/69 10/16/22 19:01 Blood Pressure Mean 78 10/16/22 19:01 Lab/Test Results Lab/Test Results: Laboratory Tests Range/Units 10/16/22 10/16/22 10/16/22 18:15 18:15 18:15 WBC (4.4-10.8) 10^3/uL 7.77 RBC (4.36-5.78) 10^6/uL 4.29 L Hgb (13.5-17.5) g/dL 13.1 L Hct (40.0-50.0) % 39.7 L MCV (80-95) fL 93 MCH (27.0-33.0) pg 30.5 MCHC (32.0-36.0) % 33.0 RDW (11.8-14.1) % 12.4 Plt Count (130-400) 10^3/uL 267 MPV (8.0-11.0) fL 10.1 Immature Gran % 0.3 Neutrophils % 66.1 Lymphocytes % 19.9 Monocytes % 10.2 Eosinophils % 2.2 Basophils % 1.3 Nucleated RBC % (0.0-0.3) % 0.0 Absolute Neutrophils (1.2-6.7) 10^3/uL 5.14 Absolute Lymphocytes (1.2-3.4) 10^3/uL 1.55 Absolute Monocytes (0.1-0.8) 10^3/uL 0.79 Absolute Eosinophils (0.0-0.7) 10^3/uL 0.17 Absolute Basophils (0.0-0.2) 10^3/uL 0.10 D-Dimer (<500) ng/mlFEU 127 Sodium (136-145) mmol/L 140 Potassium (3.5-5.1) mmol/L 3.7 Chloride (98-107) mmol/L 104 Carbon Dioxide (21.0-32.0) mmol/L 28.3 Anion Gap (3-11) mmol/L 7.7 BUN (7-18) mg/dL 29 H Creatinine (0.70-1.30) mg/dL 1.3 Est GFR (CKD-EPI 2020) (mL/min/1.73m2) 66.93 Glucose (74-106) mg/dL 126 H Calcium (8.5-10.1) mg/dL 8.7 Magnesium (1.8-2.4) mg/dL 1.8 Total Bilirubin (0.2-1.0) mg/dL 0.3 AST (15-37) U/L 17 ALT (16-63) U/L 29 Alkaline Phosphatase (46-116) U/L 75 Troponin I (<or=60) ng/L < 50 Total Protein (6.4-8.2) g/dL 6.7 Albumin (3.4-5.0) g/dL 3.5 Lipase (73-393) U/L 72 POCUS Exam (ED) Limited Cardiac Exam DATE OF EXAM: 10/16/22 TIME OF EXAM: 19:57 PROVIDER THAT PERFORMED THE STUDY: Chava Bettencourt IS THIS A REPEAT EXAM DURING THIS ENCOUNTER: no REASON FOR EXAM: Chest pain VISUALIZED STRUCTURES: Left atrium, Left ventricle, Right ventricle and Interventricular septum VIEW OBTAINED: Parasternal long-axis and Parasternal short-axis PERTINENT FINDINGS/IMPRESSION: No apparent abnormalities Exam complete
[2022-10-16 20:00] LABS: Bilirubin Negative (Negative); Blood Negative (Negative); Clarity Clear (Clear); Glucose Negative (Negative); Ketones Negative (Negative); Leukocyte Esterase Negative (Negative); Nitrite Negative (Negative); Specific Gravity >= 1.030 (1.005-1.025); Urobilinogen 0.2 EU/dL (Up TO 0.2)
--- NOTE | 2022-10-16 20:07 | DI.VRAD_ITS ---
PROCEDURE INFORMATION: Exam: XR Chest Exam date and time: 10/16/2022 7:53 PM Age: 52 years old Clinical indication: Other: Syncope TECHNIQUE: Imaging protocol: Radiologic exam of the chest. Views: 2 views. COMPARISON: CR CHEST 2 VIEWS PA,LAT 09/23/2017 4:22 PM FINDINGS: Lungs: Mild chronic interstitial prominence. No consolidation. Pleural spaces: Unremarkable. No pleural effusion. No pneumothorax. Heart/Mediastinum: Unremarkable. No cardiomegaly. Bones/joints: Unremarkable. IMPRESSION: No acute findings. Dictated and Authenticated by: Farhat Ferreira MD. Ordering:LINWOOD Larsen MD
--- NOTE | 2022-10-16 20:45 | RT.EKG_ITS ---
APPROVED REPORT Exam: Resting ECG Reason for Exam: chest pain Patient Location: E HR:55 bpm ECG Measurements Heart Rate 55 AXIS MT 144 P 46 QRSd 152 QRS -15 QT 470 T -4 QTc 451 Conclusion Sinus bradycardia...rate< 60 Right bundle branch block...QRSd>120, terminal axis(90,270). Sinus. RBBB. No significant change from previous. No STEMI. I have reviewed and interpreted ECG and agree with software generated interpretation.
[2022-10-16 21:28] LABS: Troponin I < 50 ng/L (<or=60)
--- NOTE | 2022-10-16 23:12 | ED.PROG_ITS ---
Date of service: 10/16/22 Time of Service: 20:00 Medical Decision Making 1999 --please see Dr. Bettencourt's note for initial presentation, exam and plan. Case endorsed with plan to follow-up on repeat troponin and EKG. 2329 --repeat troponin negative. Repeat EKG unchanged. Patient reassessed --patient endorses that his episode today started with an episode of left-sided chest pain followed by diaphoresis and syncopal episode. On the monitor this evening, heart rate has dropped as low as 44. Recommend admission for telemetry monitoring with plan for echocardiogram and Zio patch as soon as possible. Patient is agreeable with plan for admission. 5 --Case discussed with hospitalist who accepts pt for admission. Medical Records Medical records reviewed: Yes I reviewed the patient's medical records. Imaging Data Radiologic Study: Radiologist's impression: XR Chest Exam date and time: 10/16/2022 7:53 PM Age: 52 years old Clinical indication: Other: Syncope TECHNIQUE: Imaging protocol: Radiologic exam of the chest. Views: 2 views. COMPARISON: CR CHEST 2 VIEWS PA,LAT 09/23/2017 4:22 PM FINDINGS: Lungs:? Mild chronic interstitial prominence. No consolidation. Pleural spaces: Unremarkable. No pleural effusion. No pneumothorax. Heart/Mediastinum: Unremarkable. No cardiomegaly. Bones/joints: Unremarkable. IMPRESSION: No acute findings. Lab Data Lab results reviewed: Yes I reviewed the patient's lab results. Labs: Laboratory Tests Range/Units 10/16/22 10/16/22 10/16/22 18:15 18:15 18:15 WBC (4.4-10.8) 10^3/uL 7.77 RBC (4.36-5.78) 10^6/uL 4.29 L Hgb (13.5-17.5) g/dL 13.1 L Hct (40.0-50.0) % 39.7 L MCV (80-95) fL 93 MCH (27.0-33.0) pg 30.5 MCHC (32.0-36.0) % 33.0 RDW (11.8-14.1) % 12.4 Plt Count (130-400) 10^3/uL 267 MPV (8.0-11.0) fL 10.1 Immature Gran % 0.3 Neutrophils % 66.1 Lymphocytes % 19.9 Monocytes % 10.2 Eosinophils % 2.2 Basophils % 1.3 Nucleated RBC % (0.0-0.3) % 0.0 Absolute Neutrophils (1.2-6.7) 10^3/uL 5.14 Absolute Lymphocytes (1.2-3.4) 10^3/uL 1.55 Absolute Monocytes (0.1-0.8) 10^3/uL 0.79 Absolute Eosinophils (0.0-0.7) 10^3/uL 0.17 Absolute Basophils (0.0-0.2) 10^3/uL 0.10 D-Dimer (<500) ng/mlFEU 127 Sodium (136-145) mmol/L 140 Potassium (3.5-5.1) mmol/L 3.7 Chloride (98-107) mmol/L 104 Carbon Dioxide (21.0-32.0) mmol/L 28.3 Anion Gap (3-11) mmol/L 7.7 BUN (7-18) mg/dL 29 H Creatinine (0.70-1.30) mg/dL 1.3 Est GFR (CKD-EPI 2020) (mL/min/1.73m2) 66.93 Glucose (74-106) mg/dL 126 H Calcium (8.5-10.1) mg/dL 8.7 Magnesium (1.8-2.4) mg/dL 1.8 Total Bilirubin (0.2-1.0) mg/dL 0.3 AST (15-37) U/L 17 ALT (16-63) U/L 29 Alkaline Phosphatase (46-116) U/L 75 Troponin I (<or=60) ng/L < 50 Total Protein (6.4-8.2) g/dL 6.7 Albumin (3.4-5.0) g/dL 3.5 Lipase (73-393) U/L 72 Urine Color (Yellow) Urine Clarity (Clear) Urine pH (5-8) Ur Specific [place] (1.005-1.025) Urine Protein (Negative) mg/dL Urine Ketones (Negative) mg/dL Urine Blood (Negative) Urine Nitrite (Negative) Urine Bilirubin (Negative) Urine Urobilinogen (Up TO 0.2) EU/dL Ur Leukocyte Esterase (Negative) Urine Glucose (Negative) mg/dL Range/Units 10/16/22 10/16/22 19:50 21:00 WBC (4.4-10.8) 10^3/uL RBC (4.36-5.78) 10^6/uL Hgb (13.5-17.5) g/dL Hct (40.0-50.0) % MCV (80-95) fL MCH (27.0-33.0) pg MCHC (32.0-36.0) % RDW (11.8-14.1) % Plt Count (130-400) 10^3/uL MPV (8.0-11.0) fL Immature Gran % Neutrophils % Lymphocytes % Monocytes % Eosinophils % Basophils % Nucleated RBC % (0.0-0.3) % Absolute Neutrophils (1.2-6.7) 10^3/uL Absolute Lymphocytes (1.2-3.4) 10^3/uL Absolute Monocytes (0.1-0.8) 10^3/uL Absolute Eosinophils (0.0-0.7) 10^3/uL Absolute Basophils (0.0-0.2) 10^3/uL D-Dimer (<500) ng/mlFEU Sodium (136-145) mmol/L Potassium (3.5-5.1) mmol/L Chloride (98-107) mmol/L Carbon Dioxide (21.0-32.0) mmol/L Anion Gap (3-11) mmol/L BUN (7-18) mg/dL Creatinine (0.70-1.30) mg/dL Est GFR (CKD-EPI 2020) (mL/min/1.73m2) Glucose (74-106) mg/dL Calcium (8.5-10.1) mg/dL Magnesium (1.8-2.4) mg/dL Total Bilirubin (0.2-1.0) mg/dL AST (15-37) U/L ALT (16-63) U/L Alkaline Phosphatase (46-116) U/L Troponin I (<or=60) ng/L < 50 Total Protein (6.4-8.2) g/dL Albumin (3.4-5.0) g/dL Lipase (73-393) U/L Urine Color (Yellow) Yellow Urine Clarity (Clear) Clear Urine pH (5-8) 6.0 Ur Specific [place] (1.005-1.025) >= 1.030 H Urine Protein (Negative) mg/dL Negative Urine Ketones (Negative) mg/dL Negative Urine Blood (Negative) Negative Urine Nitrite (Negative) Negative Urine Bilirubin (Negative) Negative Urine Urobilinogen (Up TO 0.2) EU/dL 0.2 Ur Leukocyte Esterase (Negative) Negative Urine Glucose (Negative) mg/dL Negative ECG Data Attestation: I personally reviewed and interpreted this ECG (s) as follows: Interpretation: #2 -- Rate of 55, sinus, right bundle branch block, no change from previous earlier this evening. No STEMI. Sign Out Yes Sign Out Sign Out Data: Sign Out Comment: Syncope, follow-up on repeat troponin Last updated by Chava Bettencourt DO at 10/16/22 20:16 Discharge Plan Disposition Patient Disposition: Admit to [facility] Condition: Stable Discharge Details Clinical Impression: Syncope, Chest pain Admit Date/Time: 10/17/22 00:42 Admit Provider: Giovany Berrios Attending Provider: Giovany Berrios Primary Care Provider: Artem De La Cruz RN,Lev ED Provider: Tran Brunson Discharge Data Discharge Date/Time-TO BE ENTERED AT DEPARTURE: 10/17/22 01:45
[2022-10-17] VITALS (42 sets, daily range): BP systolic 101–128; BP diastolic 50–74; PULSE 49–83; RESP 15–20; TEMP 36–37; O2SAT 95–99
--- NOTE | 2022-10-17 | DI.RAD_ITS ---
Exam(s) XR HIP LT COMPLETE AP PELVIS EXAM: XR HIP LT COMPLETE AP PELVIS CLINICAL HISTORY: fall. TECHNIQUE: 2D digital imaging was performed. COMPARISON: No exams were available for comparison FINDINGS: Two views: There is no evidence of pelvic nor hip fracture. Bone density normal. No osseous lesions. No obvio us degenerative changes. IMPRESSION: No significant osseous findings. DATA REPOSITORY: RADIATION DOSE DELIVERED:
--- NOTE | 2022-10-17 | DI.RAD_ITS ---
Exam(s) XR LUMBAR SPINE COMPLETE EXAM: XR LUMBAR SPINE COMPLETE CLINICAL HISTORY: fall, lumbosacral pain. TECHNIQUE: 2D digital imaging was performed. COMPARISON: CT CT RENAL COLIC WO from 08/09/2022 FINDINGS: Five views: There is no evidence of fracture. However, there is significant anterolisthesis L5 upon S1 with appr oximately 1.5 cm anterior slippage L5 upon S1. There are bilateral pars defects at L5 level responsi ble for this. There is also significant narrowing of L5-S1 disc space. The other disc spaces appear unremarkable without disc space narrowing and the facet joints appear unremarkable. SI joints unrem arkable. No scoliosis. No osseous lesions. IMPRESSION: There is anterolisthesis of L5 upon S1 due to bilateral pars defects L5-S1 level. This was also asaf dent on abdominal CT scan performed 08/09/2022. DATA REPOSITORY: RADIATION DOSE DELIVERED:
--- NOTE | 2022-10-17 00:54 | W.PM.HP.N ---
Date of service: 10/17/22 Time of Service: 00:54 Assessment and Plan Assessment and plan (1) Syncope: Status: Chronic Assessment and plan: Will admit to medical/surgical floor on telemetry for overnight monitoring of his heart rhythm. Patient has a resting bradycardia. Upon discharge patient should have follow-up sleep study as well as prolonged cardiac monitoring. We will ask cardiology to consult on the case and make recommendations. We will get a formal echocardiogram although I do not think that this will elucidate cause of his syncope. It is of interest that his mother required a pacemaker at the age of 49. Raises a question whether there is any genetic component to his syncope. Professional time spent interviewing and examining patient, discussion of goals of care with hospital team (care management, nursing and consulting professionals) was 45 minutes. (2) Chest pain: Status: Acute Assessment and plan: Atypical chest pain. No acute ischemic changes on his EKG negative troponin levels x2. We will check echocardiogram without any wall motion abnormalities and any valvular heart disease. 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 Patient says that he has not been eating regular meals and not been sleeping as well due to the grief. Today while at work he had an episode of brief left sided chest pain and dizziness then passed out. He does not recall much of the episode when he passed out. He says that this has happened 3 other times in the past couple years but not as severe. Twice this has happened at home when he was under intense physical exercise such as shoveling snow. The other episode occurred at work and he was evaluated in the ER on 01/30/22. Patient has never followed up w/ any cardiac workup. Tonight his workup has included EKG, routine labs (CBC, CMP, lipase, troponin I x 2 sets, UA) and CXR. His labs were consistent w/ slight dehydration (UA w/ SG >1.030, BUN 29, creat. 1.3, neg. troponin x 2), CXR was normal. EKG demonstrated NSR w/ RBBB. Compared to previous EKG he had incomplete RBB in January 30, 2022 and now has complete RBBB. While in the ER he was noted to have sinus bradycardia w/ HR in the 40's to low 50's. His family hx is significant for mother who had pacemaker placed at age 49 yr old d/t severe bradycardia and his father from [place] age 80. He had known CAD w/ stents beginning in his 60's. His PMH is significant for asthma and multiple food allergies, O.C.D. Review of Systems Cardiovascular Cardiovascular: Reports as per HPI Respiratory Respiratory: Reports as per HPI PFSH All Active Problems (Updated 10/17/22 @ 01:35 by Giovany Berrios MD) Right bundle branch block (Acute) Syncope (Chronic) Chest pain (Acute) Screening for colon cancer (Acute) History of excessive cerumen (Acute) GERD (gastroesophageal reflux disease) (Chronic) Asthma, mild (Acute) Obsessive compulsive disorder (Acute) Anxiety (Chronic) Eczema (Acute) Muscle spasm of both lower legs (Acute) Prediabetes (Acute) Knee pain, right (Acute) Light headedness (Acute) Nasal vestibulitis (Acute) Impacted cerumen, right ear (Acute) Near syncope (Acute) MCL sprain of right knee (Acute) Medical History Asthma Closed fracture of 5th metacarpal Diarrhea Surgical History Hx of colonoscopy Hx of endoscopy Family History (Updated 10/17/22 @ 01:20 by Giovany Berrios MD) Father Heart disease Diabetes Mother Heart disease Social History (Updated 10/17/22 @ 01:19 by Giovany Berrios MD) Smoking/Tobacco Use Status: Former Tobacco Use tobacco type: cigarettes and cigars Quit Date: 11/18/10 Tobacco: How many years used: 25 Smoking risk assessment performed?: Yes Alcohol Intake: current Alcohol Intake frequency: a few times a month Alcohol type: wine Drug use: Occasionally Substance use type: marijuana Household members: spouse Current gender identity: male What is your relationship status?: Panel score (0-1 are the most socially isolated patients): 1 Do you feel safe at home: Yes Do you feel safe in your relationship?: Yes Meds Allergies and Home Medications Allergies Allergy/AdvReac Type Severity Reaction Status Date / Time barley Allergy Severe Verified 10/17/22 01:23 almond Allergy Mild Verified 10/17/22 01:23 corn Allergy Mild Verified 10/17/22 01:23 soybean Allergy Mild Hives,Itchy Verified 10/17/22 01:23 milk AdvReac Intermediate Nausea Verified 10/17/22 01:23 shellfish derived AdvReac Intermediate Swelling/Ed Verified 10/17/22 01:23 shen hemp Allergy Severe Anaphylaxsi Uncoded 10/17/22 01:23 s pollen AdvReac Intermediate Hives Uncoded 10/17/22 01:23 Home Medications Medication Instructions Recorded Confirmed Type epinephrine 0.3 mg/0.3 mL 0.3 mg (0.3 mL) IJ PRN PRN #1 mL 02/14/15 10/16/22 Rx injection, auto-injector (EpiPen 2-Julio) fluticasone 250 mcg-salmeterol 50 1 ea inhalation BID PRN 08/16/22 10/16/22 History mcg/dose blistr powdr for inhalation (Advair Diskus) Exam Narrative Exam Narrative: Thin middle-aged male sitting up on the [facility] alert and oriented person place time circumstance. HEENT is unremarkable Neck supple nontender no JVD normal carotid pulses no thyromegaly Lungs clear to auscultation Heart is regular but bradycardic rate in the 40s. No murmur rub Abdomen soft nontender nondistended normal bowel sounds Extremities without peripheral cyanosis edema Neuro exam nonfocal grossly intact normal range of motion and strength and sensation Results Labs Result diagrams: 10/16/22 18:15 10/16/22 18:15 Labs: Laboratory Results - last 24 hr 10/16/22 10/16/22 10/16/22 18:15 18:15 18:15 WBC 7.77 RBC 4.29 L Hgb 13.1 L Hct 39.7 L MCV 93 MCH 30.5 MCHC 33.0 RDW 12.4 Plt Count 267 MPV 10.1 Immature Gran % 0.3 Neutrophils % 66.1 Lymphocytes % 19.9 Monocytes % 10.2 Eosinophils % 2.2 Basophils % 1.3 Nucleated RBC % 0.0 Absolute Neutrophils 5.14 Absolute Lymphocytes 1.55 Absolute Monocytes 0.79 Absolute Eosinophils 0.17 Absolute Basophils 0.10 D-Dimer 127 Sodium 140 Potassium 3.7 Chloride 104 Carbon Dioxide 28.3 Anion Gap 7.7 BUN 29 H Creatinine 1.3 Est GFR (CKD-EPI 2020) 66.93 Glucose 126 H Calcium 8.7 Magnesium 1.8 Total Bilirubin 0.3 AST 17 ALT 29 Alkaline Phosphatase 75 Troponin I < 50 Total Protein 6.7 Albumin 3.5 Lipase 72 Urine Color Urine Clarity Urine pH Ur Specific [place] Urine Protein Urine Ketones Urine Blood Urine Nitrite Urine Bilirubin Urine Urobilinogen Ur Leukocyte Esterase Urine Glucose 10/16/22 10/16/22 19:50 21:00 WBC RBC Hgb Hct MCV MCH MCHC RDW Plt Count MPV Immature Gran % Neutrophils % Lymphocytes % Monocytes % Eosinophils % Basophils % Nucleated RBC % Absolute Neutrophils Absolute Lymphocytes Absolute Monocytes Absolute Eosinophils Absolute Basophils D-Dimer Sodium Potassium Chloride Carbon Dioxide Anion Gap BUN Creatinine Est GFR (CKD-EPI 2020) Glucose Calcium Magnesium Total Bilirubin AST ALT Alkaline Phosphatase Troponin I < 50 Total Protein Albumin Lipase Urine Color Yellow Urine Clarity Clear Urine pH 6.0 Ur Specific [place] >= 1.030 H Urine Protein Negative Urine Ketones Negative Urine Blood Negative Urine Nitrite Negative Urine Bilirubin Negative Urine Urobilinogen 0.2 Ur Leukocyte Esterase Negative Urine Glucose Negative Last Vital Signs Pulse 56 L 10/16/22 20:02 Resp 18 10/16/22 20:02 BP 109/72 10/16/22 20:02
[2022-10-17 01:08] LABS: Source Nasal/Nares
[2022-10-17 01:39] LABS: COVID-19 PCR Negative (Negative)
[2022-10-17] MEDS: Enoxaparin 40 MG/0.4 ML SYR SC (02:38)
[2022-10-17 08:18] LABS: Anion Gap 5.8 mmol/L (3-11); BUN 21 mg/dL (7-18); CO2 29.2 mmol/L (21.0-32.0); Calcium 8.5 mg/dL (8.5-10.1); Chloride 105 mmol/L (98-107); Estimated GFR 91.69 (mL/min/1.73m2); Glucose 104 mg/dL (74-106); Magnesium 1.9 mg/dL (1.8-2.4); Potassium 3.3 mmol/L (3.5-5.1); Sodium 140 mmol/L (136-145)
--- NOTE | 2022-10-17 08:30 | RT.EKG_ITS ---
APPROVED REPORT Exam: Resting ECG Reason for Exam: syncope Patient Location: I HR:57 bpm ECG Measurements Heart Rate 57 AXIS IL 146 P 22 QRSd 150 QRS -19 QT 491 T 20 QTc 478 Conclusion Sinus rhythm...normal P axis, V-rate 50- 99 Ventricular premature complex...V complex w/ short R-R interval Intermittent right bundle branch block...QRSd>120, terminal axis(90,270)
[2022-10-17 08:32] LABS: Troponin I < 50 ng/L (<or=60)
--- NOTE | 2022-10-17 08:46 | PDOC.CMIN ---
- If Service Date Differs Date of service: 10/17/22 Time of Service: 08:46 Care Management Initial Assess REASON FOR HOSPITALIZATION:: Syncope, Chest pain, Right bundle branch block PAST MEDICAL HISTORY/PAST SURGICAL HISTORY:: All Active Problems (Updated 10/17/22 @ 01:35 by Giovany Berrios MD). Right bundle branch block (Acute). Syncope (Chronic). Chest pain (Acute). Screening for colon cancer (Acute). History of excessive cerumen (Acute). GERD (gastroesophageal reflux disease) (Chronic). Asthma, mild (Acute). Obsessive compulsive disorder (Acute). Anxiety (Chronic). Eczema (Acute). Muscle spasm of both lower legs (Acute). Prediabetes (Acute). Knee pain, right (Acute). Light headedness (Acute). Nasal vestibulitis (Acute). Impacted cerumen, right ear (Acute). Near syncope (Acute). MCL sprain of right knee (Acute). Medical History . Asthma. Closed fracture of 5th metacarpal. Diarrhea. Surgical History . Hx of colonoscopy. Hx of endoscopy PREVIOUS FUNCTIONAL STATUS/SOCIAL/FAMILY SUPPORTS:: Carlin lives in [facility] with his Belia. 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 He drives and is independent at baseline. CURRENT FUNCTIONAL STATUS:: Carlin is awake, alert and easy to engage in conversation. He is sitting on his bed in the ICU and waiting to transfer to the CT floor. Carlin shares that he hasn't had much of an appetite since his dog over the weekend. Carlin shares that he is grieving and is agreeable to talking with the [place]. ADVANCE DIRECTIVES:: HCA form on file: Belia Almonte Has patient been provided with info about the portal/API?: Yes Did the patient sign up for the portal?: Yes (Prior to admission) CODE STATUS:: Full Code INSURANCE COVERAGE / FINANCIAL ISSUES:: [employer] ([employer]) CURRENT HOME/COMMUNITY SERVICES/EQUIPMENT:: None PRIMARY CARE PHYSICIAN:: Carlin is waiting to establish care with a new PCP at [facility]. POTENTIAL DISCHARGE NEEDS:: Outpatient sleep study. Cardiology follow up. 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 Discuss ask me three and goals of self care. TRANSPORTATION:: Via private vehicle located in the parkinglot. PLAN:: Carlin requires further cardiac monitoring and cardiology consult. Anticipate, he will discharge home when medically ready. He will need a Cardiac Event Recorder and an outpatient Cardiology follow up and a sleep study referral.
[2022-10-17] MEDS: Potassium Chloride 20 MEQ TABCR 40 MEQ PO (13:46)
[2022-10-17] MEDS: Normal Saline Flush 10 ML SYR IVP (13:46)
--- NOTE | 2022-10-17 13:48 | PGE_ITS ---
Date of Service Date of service: 10/17/22 Time of Service: 13:50 Subjective Subjective Interval history since last seen: Carlin states he feels better today. He is not as dizzy and has not had chest pain. No arrhythmic events on the heart monitor. While anxious, he agrees to stay another night for further cardiac cath technician and until he is able to be seen by a travel coordinator. This was his 4th syncopal event in 2 yrs. Objective Last Vital Signs Temp 36.5 C 10/17/22 07:29 Pulse 53 L 10/17/22 07:29 Resp 20 10/17/22 07:29 BP 109/71 10/17/22 07:29 Pulse Ox 98 10/17/22 07:29 Laboratory Results - last 24 hr 10/16/22 10/16/22 10/16/22 18:15 18:15 18:15 WBC 7.77 RBC 4.29 L Hgb 13.1 L Hct 39.7 L MCV 93 MCH 30.5 MCHC 33.0 RDW 12.4 Plt Count 267 MPV 10.1 Immature Gran % 0.3 Neutrophils % 66.1 Lymphocytes % 19.9 Monocytes % 10.2 Eosinophils % 2.2 Basophils % 1.3 Nucleated RBC % 0.0 Absolute Neutrophils 5.14 Absolute Lymphocytes 1.55 Absolute Monocytes 0.79 Absolute Eosinophils 0.17 Absolute Basophils 0.10 D-Dimer 127 Sodium 140 Potassium 3.7 Chloride 104 Carbon Dioxide 28.3 Anion Gap 7.7 BUN 29 H Creatinine 1.3 Est GFR (CKD-EPI 2020) 66.93 Glucose 126 H Calcium 8.7 Magnesium 1.8 Total Bilirubin 0.3 AST 17 ALT 29 Alkaline Phosphatase 75 Troponin I < 50 Total Protein 6.7 Albumin 3.5 Lipase 72 Urine Color Urine Clarity Urine pH Ur Specific [place] Urine Protein Urine Ketones Urine Blood Urine Nitrite Urine Bilirubin Urine Urobilinogen Ur Leukocyte Esterase Urine Glucose COVID-19 Source SARS-CoV-2 (PCR) 10/16/22 10/16/22 10/17/22 19:50 21:00 01:05 WBC RBC Hgb Hct MCV MCH MCHC RDW Plt Count MPV Immature Gran % Neutrophils % Lymphocytes % Monocytes % Eosinophils % Basophils % Nucleated RBC % Absolute Neutrophils Absolute Lymphocytes Absolute Monocytes Absolute Eosinophils Absolute Basophils D-Dimer Sodium Potassium Chloride Carbon Dioxide Anion Gap BUN Creatinine Est GFR (CKD-EPI 2020) Glucose Calcium Magnesium Total Bilirubin AST ALT Alkaline Phosphatase Troponin I < 50 Total Protein Albumin Lipase Urine Color Yellow Urine Clarity Clear Urine pH 6.0 Ur Specific [place] >= 1.030 H Urine Protein Negative Urine Ketones Negative Urine Blood Negative Urine Nitrite Negative Urine Bilirubin Negative Urine Urobilinogen 0.2 Ur Leukocyte Esterase Negative Urine Glucose Negative COVID-19 Source Nasal/Nares SARS-CoV-2 (PCR) Negative 10/17/22 10/17/22 07:57 07:57 WBC RBC Hgb Hct MCV MCH MCHC RDW Plt Count MPV Immature Gran % Neutrophils % Lymphocytes % Monocytes % Eosinophils % Basophils % Nucleated RBC % Absolute Neutrophils Absolute Lymphocytes Absolute Monocytes Absolute Eosinophils Absolute Basophils D-Dimer Sodium 140 Potassium 3.3 L Chloride 105 Carbon Dioxide 29.2 Anion Gap 5.8 BUN 21 H Creatinine 1.0 Est GFR (CKD-EPI 2020) 91.69 Glucose 104 Calcium 8.5 Magnesium 1.9 Total Bilirubin AST ALT Alkaline Phosphatase Troponin I < 50 Total Protein Albumin Lipase Urine Color Urine Clarity Urine pH Ur Specific [place] Urine Protein Urine Ketones Urine Blood Urine Nitrite Urine Bilirubin Urine Urobilinogen Ur Leukocyte Esterase Urine Glucose COVID-19 Source SARS-CoV-2 (PCR) PAWSS Have you Been Recently Intoxicated or Drunk Within the Last 30 days?: No Have you Ever Experienced Previous Episodes of Alcohol Withdrawal?: No Have you ever Experienced Withdrawal Seizures?: No Have you ever Experienced Delirium Tremens(DT)s?: No Have you ever undergone Alcohol Rehabilitation Treatment (i.e, inpt ot outpatient treatment programs)?: No Have you ever Experienced Blackouts?: No Have you ever Combined Alcohol with other Downers within the last 90 days?: No Have you ever Combined Alcohol with any other Substance of Abuse during the last 90 days?: No Positive Blood Alcohol level on Presentation? [PCS.BAL]: No Evidence of Increased Autonomic Activity (i.e. HR>120, tremor, sweating, agita tion, nausea)?: No Result: 0
[2022-10-17] MEDS: Lidocaine 5% Patch 1 PATCH TP (13:54)
--- NOTE | 2022-10-17 15:52 | CHAPLAIN ---
I had a short visit with Carlin just before he was transferred to the Med/Surg. Carlin works at [employer] in [place] and his Belia works in Patient Accounts. We talked briefly about the recent of Carlin's dog. Carlin told me he was raised Yazidi, and also attended a [employer] cath[employer] with his grandmother.
--- NOTE | 2022-10-17 17:35 | NUR.NOTE ---
Nursing Note: At 1408, patient was transitioned to med surg status from ICU status. Patient is now in room 216. Patient oriented to room. All needs met.
[2022-10-18 02:11] VITALS: PULSE 69
[2022-10-18] MEDS: Enoxaparin 40 MG/0.4 ML SYR SC (02:30)
[2022-10-18 03:26] VITALS: BP 107/70; PULSE 60; RESP 17; TEMP 36.6; O2SAT 96
[2022-10-18 07:06] LABS: Lab Add On Test DONE
[2022-10-18 07:08] VITALS: PULSE 53
[2022-10-18 07:19] LABS: Anion Gap 8.5 mmol/L (3-11); BUN 19 mg/dL (7-18); CO2 25.5 mmol/L (21.0-32.0); CREATININE 0.8 mg/dL (0.70-1.30); Calcium 8.7 mg/dL (8.5-10.1); Chloride 105 mmol/L (98-107); Estimated GFR 107.82 (mL/min/1.73m2); Glucose 98 mg/dL (74-106); Potassium 3.4 mmol/L (3.5-5.1); Sodium 139 mmol/L (136-145)
[2022-10-18 07:49] VITALS: BP 108/68; PULSE 59; RESP 16; TEMP 36; O2SAT 97
--- NOTE | 2022-10-18 09:19 | W.PM.DS.N ---
Date of service: 10/18/22 Time of Service: 09:19 DS: Diagnosis Discharge Diagnosis (1) Syncope: Status: Chronic (2) Chest pain: Status: Acute (3) Right bundle branch block: Status: Acute Asessment and Plan: Intermittent (4) Hypokalemia: Status: Acute (5) Anxiety: Status: Chronic (6) Obsessive compulsive disorder: Status: Acute Discharge Plan Disposition Patient Disposition: Home Condition: Stable Discharge Details Reason For Visit: Chest Pain, Syncope Admit Date/Time: 10/17/22 00:42 Admit Provider: Giovany Berrios Attending Provider: Giovany Berrios Primary Care Provider: Artem De La Cruz RN,[place] Hospital Course Hospital Course: Mr Almonte is a 52 year old male with PMHx of 3 prior syncopal episodes, as well as h/o GERD, asthma, OCD, and anxiety, who was observed on [facility] hospitalist service from 10/16/22 until 10/18/22 after having a syncopal episode at work. His EKG showed intermittent RBBB. He had negative troponins. His underlying rhythm was sinus bradycardia with HR in high 40s - low 50s (but occasionally up to the 90s). His echocardiogram did not show any significant abnormalities. His LVEF was 63%, there were no wall motion abnormalities, RVSP was normal, and there were no significant valvular issues. He did not have any further syncopal episodes. His case was discussed with cardiology. The most likely etiology for his syncopal episodes is vasovagal syncope. A referral to electrophysiology at [facility] was recommended and made. The patient is going home with a cardiac event recorder. He is stable for discharge home today. Additionally, his potassium was repleted and is being supplemented on discharge. He will need bloodwork in 1 week. His lumbar spine was imaged as the patient reported pain in his back - there were no acute injuries on imaging. Lidocaine patches are being prescribed. I did recommend to the patient that he resume psychotherapy for his anxiety and OCD. Care for patient as well as completion of his discharge summary took 45 minutes on the day of discharge. Home Meds and New Rx's Prescriptions: New lidocaine 5 % Adhesive Patch,Medicated 1 patch topical DAILY PRN PRN (Reason: lower back pain) Qty: 30 0RF Rx Instructions: On for 12 hrs, off for 12 hrs potassium chloride 20 mEq tablet extended release 20 meq PO DAILY Qty: 14 0RF Continued epinephrine [EpiPen 2-Julio] 0.3 MG/0.3 ML auto-injector 0.3 mg IJ PRN PRNQty: 1 0RF fluticasone propion-salmeterol [Advair Diskus] 250-50 mcg/dose blister with device 1 ea INHALATION BID PRN Discharge Instructions Instructions: Hypokalemia (DC), Syncope (DC) Additional Instructions: Return to the hospital with any further syncopal episodes, if you have dizziness, chest pain, or shortness of breath. Follow up with your PCP for the results of the tick panel. Follow up with [facility] cardiology (Electrophysiology). Bloodwork in 1 week. Stand Alone Forms: Nursing Discharge Form Referrals: CARDIOLOGY,[facility] [OTHER] - (electrophysiology - recurrent syncopal episodes. Office will call you with appointment) DEBRA TEJADA NP [ NON-[facility] STAFF PHYSICIAN] - 10/31/22 3:00 pm Activity:: Activity as Tolerated Equipment/Supplies:: cardiac event recorder Diet:: As Tolerated Discharge Orders Discharge Orders: Discharge Order (Routine); Ordered 10/18/22 Ordered By: Maria M Ramos Other Ambulatory Orders: Basic Metabolic Panel (Routine) Timeframe: 20221025 Facility: [facility] - Location: Laboratory Outpatient - [facility] Ordered By: Maria M Ramos Cardiac Event Recorder (Routine) Timeframe: 1 Day Facility: [facility] - Location: Respiratory Therapy Ordered By: Maria M Ramos Magnesium (Routine) Timeframe: 20221025 Facility: [facility] - Location: Laboratory Outpatient - [facility] Ordered By: Maria M Ramos DS: Summary Time Spent with Patient providing and/or coordinating discharge services: Greater than 30 minutes Status at Discharge Functional status at discharge: independent ambulation Overall status at discharge: patient is back to baseline Mental Status: mental status grossly normal Speech and Movement: speech and movement normal Mood: congruent mood Affect: normal affect Exam Narrative Exam Narrative: General: Pleasant anxious male, A&Ox3, NAD HEENT: EOMI, MMM Heart: RRR, no m/r/g Lungs: CTAB Abdomen: soft, nontender, nondistended Extremities: no edema BLE's. Psych Mental Status: mental status grossly normal Speech and Movement: speech and movement normal Mood: congruent mood Affect: normal affect DS: Data Vitals/I&O Vitals and I&O: Vital Signs Temperature 36.0 C L 10/18/22 07:49 Temperature Source Tympanic 10/18/22 07:49 Pulse 59 L 10/18/22 07:49 Pulse Rhythm Regular 10/18/22 08:02 Pulse 59 L 10/17/22 10:20 Respiratory Rate 16 10/18/22 07:49 Respiratory Effort 10/18/22 08:02 Respiratory Depth Normal 10/18/22 08:02 Respiratory Pattern Normal 10/18/22 08:02 Blood Pressure 108/68 10/18/22 07:49 Blood Pressure Mean 75 10/17/22 01:45 Blood Pressure Position Supine 10/17/22 01:45 Pulse Oximetry 97 10/18/22 07:49 Oxygen Delivery Method Room Air 10/18/22 07:49 Oxygen Flow Rate 0 10/18/22 07:49 Pain Level 0 10/17/22 23:28 Intake & Output 10/17/22 10/17/22 10/18/22 11:59 23:59 11:59 Intake Total 1000 / 1000 Balance 1000 / 1000 Weight 79.5 kg 82.1 kg Intake: IV 1000 / 1000 Other: Urine Color Yellow Urine Appearance Clear Voiding Methods Toilet Data Completed and Pending Completed studies during hospitalization [Text1]: CXR 10/16/22: No acute pulmonary findings. XR L hip/pelvis 10/17/22: No significant osseous findings. XR lumbar spine: There is anterolisthesis of L5 upon S1 due to bilateral pars defects L5-S1 level.? This? was also evident on abdominal CT scan performed 08/09/2022. Echo 10/17/22: LV systolic function is normal (63%). No segmental wall motion abnormalities. RV is of normal size. RV systolic function is normal. RVSP is normal. There is mild mitral and tricuspid regurgitation. Labs on day of discharge: Labs from last 24 hours 10/18/22 10/18/22 10/17/22 06:40 06:15 06:40 Sodium 139 Potassium 3.4 L Chloride 105 Carbon Dioxide 25.5 Anion Gap 8.5 BUN 19 H Creatinine 0.8 Est GFR (CKD-EPI 2020) 107.82 Glucose 98 Calcium 8.7 Magnesium 2.0 A.phagocytophil DNA PCR Pending B. divergens/MO-1 PCR Pending Babesia duncani (PCR) Pending Babesia microti DNA PCR Pending Borrelia (PCR) Pending Lyme Disease Antibody Pending E.chaffeensis DNA (PCR) Pending E.ewingii/canis DNA PCR Pending E. muris-like DNA (PCR) Pending Add-On Test Request DONE PFSH All Active Problems (Updated 10/18/22 @ 09:21 by Maria M Ramos MD) Hypokalemia (Acute) Right bundle branch block (Acute) Syncope (Chronic) Chest pain (Acute) Screening for colon cancer (Acute) History of excessive cerumen (Acute) GERD (gastroesophageal reflux disease) (Chronic) Asthma, mild (Acute) Obsessive compulsive disorder (Acute) Anxiety (Chronic) Eczema (Acute) Muscle spasm of both lower legs (Acute) Prediabetes (Acute) Knee pain, right (Acute) Light headedness (Acute) Nasal vestibulitis (Acute) Impacted cerumen, right ear (Acute) Near syncope (Acute) MCL sprain of right knee (Acute) Medical History Asthma Closed fracture of 5th metacarpal Diarrhea Surgical History Hx of colonoscopy Hx of endoscopy Family History (Updated 10/17/22 @ 01:20 by Giovany Berrios MD) Father Heart disease Diabetes Mother Heart disease Social History (Updated 10/17/22 @ 01:19 by Giovany Berrios MD) Smoking/Tobacco Use Status: Former Tobacco Use tobacco type: cigarettes and cigars Quit Date: 11/18/10 Tobacco: How many years used: 25 Smoking risk assessment performed?: Yes Alcohol Intake: current Alcohol Intake frequency: a few times a month Alcohol type: wine Drug use: Occasionally Substance use type: marijuana Household members: spouse Current gender identity: male What is your relationship status?: Panel score (0-1 are the most socially isolated patients): 1 Do you feel safe at home: Yes Do you feel safe in your relationship?: Yes
[2022-10-18] MEDS: Potassium Chloride 20 MEQ TABCR 40 MEQ PO (09:26)
--- NOTE | 2022-10-18 09:38 | PDOC.CMDIS ---
- If Service Date Differs Date of service: 10/18/22 Time of Service: 09:38 LACE Index Scoring Tool - Questions: Length of Stay (in days): 1 Acuity (Admit via E.D.?): Yes Comorbidities: Chronic Pulmonary Disease (Asthma) E.D. Visits: 3 - Answers: Total Score: 9 Risk of Readmission: Low Risk Care Management Discharge Reason for Hospitalization: Syncope, Chest pain, Right bundle branch block Discharge Plan: Carlin is discharged home via private vehicle. Cardiac event recorder is ordered prior to discharge and New RX's are transmitted to [facility] pharmacy. Carlin will follow up with his PCP on 10/31/22, as scheduled. Referral is placed to EP Cardiology at [facility] ( Office to call Patient with appointment). Repeat labs are ordered for next week. Carlin is encouraged to return to the hospital if he develops dizziness, chest pain, sob or has any further syncopal episodes. Note to return to work on 10/22/22, without resitrictions is given to patient. Patient/Family Education Needs: Review discharge instructions, medications, limitations and plan to follow up with community providers and have repeat labs next week. Discuss ask me three and goals of self care.
[2022-10-18 10:46] VITALS: PULSE 94
[2022-10-19 12:34] LABS: Lyme Ab w Rflx to Lyme Confirm Negative (Negative)
[2022-10-22 17:04] LABS: Anaplasma phagocytophilum Negative (Negative); B. miyamotoi PCR Negative (Negative); Babesia divergens/MO-1 Negative (Negative); Babesia duncani Negative (Negative); Babesia microti Negative (Negative); Ehrlichia chaffeensis Negative (Negative); Ehrlichia ewingii/canis Negative (Negative); Ehrlichia muris eauclairensis Negative (Negative)
== END 2022-10-18 13:40 | disposition home or self-care (01) ==
LOC: ER 10-17 01:20 → ICU 10-17 02:02 → MS 10-17 14:40
PROVIDERS: Internal Medicine; Physician Assistant; Student in an Organized Health Care Education/Training Program; Admitting Provider Internal Medicine; Emergency Provider Physician Assistant; Visit Provider Internal Medicine
DX: R55 Syncope and collapse (principal); R07.89 Other chest pain; I45.10 Unspecified right bundle-branch block; F41.9 Anxiety disorder, unspecified; E87.6 Hypokalemia; F42.9 Obsessive-compulsive disorder, unspecified; Z20.822 Contact with and (suspected) exposure to COVID-19; R00.1 Bradycardia, unspecified; M54.50 Low back pain, unspecified; I08.1 Rheumatic disorders of both mitral and tricuspid valves; E86.0 Dehydration; K21.9 Gastro-esophageal reflux disease without esophagitis; J45.909 Unspecified asthma, uncomplicated; W19.XXXA Unspecified fall, initial encounter
CPT/HCPCS: 36415; 80048; 80053; 83690; 87635; 87798; 93005; 93308; 96360; 96372; 99285; J1650; 71046; 72110; 73502; 81003; 83735; 84484; 85025; 85379; 86618; 93010; 93306; 99217; 99219; J3490

== ENCOUNTER 2022-10-18 13:20 | Outpatient (RCR) | payer OTHER, SELFPAY ==
--- OUTSIDE RECORDS SUMMARY | 2022-10-18 13:22 | XMS_ITS | Clinical Summary ---
:1970 Author Organization [facility] Address [address] [place] [id number] Care Team Providers Name Role Phone Unknown, Provider Primary Care Provider Encounters Date Type Specialty Care Team Description 10/18/2022 Lab Requisition Clinical Laboratory Outr Resulting Lab , Provider from Last 3 Months Social History Tobacco Use Types Packs/Day Years Used Date Smoking Tobacco: Never Assessed Sex Assigned at Date Recorded Not on file Plan of Treatment Health Maintenance Due Date Last Done Comments COVID-19 Vaccine (#1) 1970 Hepatitis C Screen Completed 04/12/2022 Care Teams Manual Tester Relationship Specialty Start Date End Date Unknown, Provider, PCP - General 11/13/12
--- OUTSIDE RECORDS SUMMARY | 2022-10-18 13:22 | XMS_ITS | Encounter Summary ---
:1970 Author Organization [facility] Address [address] [place] [address] Care Team Providers Name Role Phone Unknown, Provider Primary Care Provider Encounter Details Date Type Department Care Team Description 04/12/2022 Lab Requisition [facility] Outr Resulting Lab, Pathology & Laboratory Provider [facility] [address] [place], [place] [address] Social History Tobacco Use Types Packs/Day Years Used Date Smoking Tobacco: Never Assessed Sex Assigned at Date Recorded Not on file documented as of this encounter Plan of Treatment Not on filedocumented as of this encounter Procedures Procedure Name Priority Date/Time Associated Diagnosis Comme nts HEPATITIS C AB W Routine 04/12/2022 10:50 Results for this REFLEX TO HCV RNA EDT procedure are in BY PCR the results section. documented in this encounter Results HEPATITIS C AB W REFLEX TO HCV RNA BY PCR (04/12/2022 10:50 EDT) Analysis Performed At Patho logist Time Signature Hep C Antibody Negative Negative 04/13/2022 [facility] 9:25 EDT [facility] Specimen Anatomical Collection Method Collection Time Receive d Time (Source) Location / / Volume Laterality Blood VENOUS BLOOD / 04/12/2022 10:50 2 Unknown EDT 21:35 EDT Provider Outr Resulting Lab CHEMISTRY & BLOOD GAS EZEQUIEL EISENBERG Performing Organization Address City/State/ZIP Code Phon e Number [facility] [address] [place] [address] SERVICES documented in this encounter Visit Diagnoses Not on filedocumented in this encounter Care Teams Hide And Skin Fleshing Machine Operator Relationship Specialty Start Date End Date Unknown, Provider, PCP - General 11/13/12 documented as of this encounter
--- OUTSIDE RECORDS SUMMARY | 2022-10-18 13:22 | XMS_ITS | Encounter Summary ---
:1970 Author Organization [facility] Address [address] [place] [address] Care Team Providers Name Role Phone Unknown, Provider Primary Care Provider Encounter Details Date Type Department Care Team Description 11/12/2012 Results Only [facility]- Rufino Pedro, DO [phone] [facility] [facility] [place], [place] [id number] (Wo rk) Social History Tobacco Use Types Packs/Day Years Used Date Smoking Tobacco: Never Assessed Sex Assigned at Date Recorded Not on file documented as of this encounter Plan of Treatment Not on filedocumented as of this encounter Procedures Procedure Name Priority Date/Time Associated Diagnosis Comme [facility] SURGICAL PATHOLOGY Routine 11/12/2012 7:48 EST Re sults for this procedure are i n the results section. documented in this encounter Results SURGICAL PATHOLOGY (11/12/2012 7:48 EST) Component Value Ref Test Analysis Performed At [facility] Method Time Signature Pathology SURGICAL PATHOLOGY REPORT SEBASTIAN HAWLEY Report: Reports generated via electronic interface contain yari ansari data; JENNYFER ALCALA however they are lacking the format of the original report. Caution should be taken when reading/interpreting unformatte d reports. Name: ? CRALIN ALMONTE ? Accession #: ? [id number] ? : ? 1970 (Age: 42) ??M ? Collect Date: ? 11/12/2012 ? Location: ? [facility] ? Receive Date: ? 11/13/2012 ? Provider: RUFINO HUERTA DO Copy to: DORIS FELIZ ? Final Pathologic Diagnosis: A. ?Small intestine, duodenum, biopsy: 1. ?Duodenal mucosa with no pathologic features . 2. ? No evidence of celiac sprue. B. ?Stomach, antrum, biopsy: 1. ?Fundic and antral mucosa with mild reactive changes. 2. ?No Helicobacter pylori-like microorganisms identified on H&E-stained sections. C. ?Gastroesophageal junction, biopsy: ?1. ?? Squamocolumnar mucosa with mild reactiv e changes. ?? Document reviewed and electronically signed by: DOLORES BENAVIDES MD Report ??Date: 11/17/2012 14:56 By the signature above, the attending physician certifies th at he/she has personally conducted a gross and/or microscopic examin ation of the described specimens and rendered or confirmed the above diagnosis. Specimen(s) Received: A. ?Bx duodenum (#1) B. ? Bx gastric antrum (#2) C. ? Bx G.E. junction (#3) Clinical History: ? Bloody stools/GERD Gross Description: ? Received in formalin labelled Carlin Almonte and #1-bx duodenum are two light osorio biopsies measuring 0.4 x 0.3 x 0.3 cm and 0.5 x 0.2 x 0.2 cm. ??The specimens are submitted intact as (A). Received in formalin labelled Carlin Almonte and #2-bx ga stric antrum are three light osorio biopsies whi ch vary in size from 0.4 x 0.2 x 0.1 cm up to 0.6 x 0.2 x 0.1 cm. ??The specimens are submitted intact as (B). Received in formalin labelled Lolly Almonte and #3-GE junction bx are three osorio-pink biopsies which vary in size fro m 0.2 x 0.2 x 0.2 cm up to 0.3 x 0.2 x 0.1 cm. ??The specimens are submitted intact as (C). ??(Morena Freedman)/[facility] End of Report Specimen Anatomical Collection Method Collection Time Receive d Time (Source) Location / / Volume Laterality 11/12/2012 7:48 11/13/2012 7 :48 EST EST Rufino Huerta DO PATHOLOGY ORDERABLES Performing Organization Address City/State/ZIP Code Phon e Number [facility] [address] [place] [address] SERVICES [facility] [address] [place] [address] documented in this encounter Visit Diagnoses Not on filedocumented in this encounter Care Teams Loft Worker Head Relationship Specialty Start Date End Date Unknown, Provider, PCP - General 11/13/12 documented as of this encounter
--- OUTSIDE RECORDS SUMMARY | 2022-10-18 13:22 | XMS_ITS | Encounter Summary ---
:1970 Author Organization [facility] Address [address] [place] [address] Care Team Providers Name Role Phone Unknown, Provider Primary Care Provider Encounter Details Date Type Department Care Team Description 08/19/2020 Lab Requisition [facility] Outr Resulting Lab, Pathology & Laboratory Provider [facility] [address] [place] [address] Social History Tobacco Use Types Packs/Day Years Used Date Smoking Tobacco: Never Assessed Sex Assigned at Date Recorded Not on file documented as of this encounter Plan of Treatment Not on filedocumented as of this encounter Procedures Procedure Name Priority Date/Time Associated Comments Diagnosis DO NOT ORDER Today 08/19/2020 12:59 Results for this STANDALONE - BROAD EDT procedure are in COVID TEST the results section. COVID-19 TESTING Routine 08/19/2020 12:59 Results for this EDT procedure are i n the results section. documented in this encounter Results DO NOT ORDER STANDALONE - BROAD COVID TEST (08/19/2020 12:59 EDT) Analysis Performed At [facility] Time Signature COVID-19 NEGATIVE Negative 08/20/2020 BROAD rt-PCR Result 19:10 EDT [facility] Comment: 2019-novel Coronavirus (2019-nCoV) not d etected by the qRT-PCR assay. Consider testing for other respiratory viruses or re-collecting for 2019-nCoV testing. Note: Optimum timing for peak viral levels du ring infections caused by 2019-nCoV have not been determined. Collection of multiple specimens from the same patient may be necessary to detect the virus. Limitations Positive results are indicative of activ e infection with SARS-CoV-2 but do not rule out bacterial infection or co-infection with other viruses. The agent detected may not be the definite cause of diseas e. In addition, detection of viral RNA m ay not indicate the presence of infectious virus or that SARS-CoV-2 is the causative agent for clinical symptoms. Negative results do not preclude SARS-Co V-2 infection and should not be used as the sole basis for patient management decisions. Negative results must be combined with clinical observations, patient his tory, and epidemiological information. F alse negative results may also occur if amplification inhibitors are present in the specimen or if inadequate numbers of organisms are present in the specimen. Op timum specimen types and timing for peak viral levels during infections caused by SARS-CoV-2 have not been fully determined. Collection of multiple specimens (types and time points) from the same patient may be necessary to detect the virus. The test was validated for use with uppe r respiratory specimens obtained via nasopharyngeal or oropharyngeal swabs in VTM, UTM, M4, M5, M6, saline, and MTM media. The performance of this test has not be en established for other specimens. Spec imens collected using other FDA recommended Specimen Collection Materials listed in the FDA COVID-19 [employer] communication (February 11, 2020) are pr ocessed with the caveat that they were n ot all validated for use with this test and the result must be interpreted in this context. Furthermore, a false negative results may occur if a specimen is improperly collected, transported or handled. If the virus mutates in the RT-PCR targe t region, SARS-CoV-2 may not be detected or may be detected less predictably. Inhibitors or other types of interferenc e may produce a false negative result. An interference study evaluating the effect of common cold medications was not performed. This test is not FDA-cleared but its per formance characteristics were established by our CLIA-certified, CAP-accredited, high complexity laboratory in accordance with CLIA regulations, [employer] (CAP) guidelines (Jan), and FDA guidance (Jan 16, 2020). This test is only for use under the Food and Drug Administration's Emergency Use Authorization. Specimen Anatomical Location Collection Method Collection Time Received Time (Source) / Laterality / Volume Swab ENTIRE NASOPHARYNX 08/19/2020 12:59 08/19 / Unknown EDT 20:32 EDT Provider Outr Resulting Lab MICROBIOLOGY - GENERAL ORD ERABLES Performing Organization Address City/State/ZIP Code Phon e Number [facility] [place] COVID-19 TESTING (08/19/2020 12:59 EDT) Analysis Performed At [facility] Time Signature COVID-19 NEGATIVE Negative 08/20/2020 BROAD rt-PCR Result 20:41 EDT [facility] Comment: 2019-novel Coronavirus (2019-nCoV) not d etected by the qRT-PCR assay. Consider testing for other respiratory viruses or re-collecting for 2019-nCoV testing. Note: Optimum timing for peak viral levels du ring infections caused by 2019-nCoV have not been determined. Collection of multiple specimens from the same patient may be necessary to detect the virus. Limitations Positive results are indicative of activ e infection with SARS-CoV-2 but do not rule out bacterial infection or co-infection with other viruses. The agent detected may not be the definite cause of diseas e. In addition, detection of viral RNA m ay not indicate the presence of infectious virus or that SARS-CoV-2 is the causative agent for clinical symptoms. Negative results do not preclude SARS-Co V-2 infection and should not be used as the sole basis for patient management decisions. Negative results must be combined with clinical observations, patient his tory, and epidemiological information. F alse negative results may also occur if amplification inhibitors are present in the specimen or if inadequate numbers of organisms are present in the specimen. Op timum specimen types and timing for peak viral levels during infections caused by SARS-CoV-2 have not been fully determined. Collection of multiple specimens (types and time points) from the same patient may be necessary to detect the virus. The test was validated for use with uppe r respiratory specimens obtained via nasopharyngeal or oropharyngeal swabs in VTM, UTM, M4, M5, M6, saline, and MTM media. The performance of this test has not be en established for other specimens. Spec imens collected using other FDA recommended Specimen Collection Materials listed in the FDA COVID-19 [employer] communication (February 11, 2020) are pr ocessed with the caveat that they were n ot all validated for use with this test and the result must be interpreted in this context. Furthermore, a false negative results may occur if a specimen is improperly collected, transported or handled. If the virus mutates in the RT-PCR targe t region, SARS-CoV-2 may not be detected or may be detected less predictably. Inhibitors or other types of interferenc e may produce a false negative result. An interference study evaluating the effect of common cold medications was not performed. This test is not FDA-cleared but its per formance characteristics were established by our CLIA-certified, CAP-accredited, high complexity laboratory in accordance with CLIA regulations, [employer] (CAP) guidelines (Jan), and FDA guidance (Jan 16, 2020). This test is only for use under the Food and Drug Administration's Emergency Use Authorization. Performing Lab [facility] 08/20/2020 20:4 1 EDT [facility] Specimen Anatomical Collection Method Collection Time Receive d Time (Source) Location / / Volume Laterality Swab 08/19/2020 12:59 08/19/2020 EDT 20:32 EDT Provider Outr Resulting Lab MICROBIOLOGY - GENERAL ORD ERABLES Performing Organization Address City/State/ZIP Code Phon e Number [facility] [address] [place] [address] SERVICES [facility] [place], [place] documented in this encounter Visit Diagnoses Not on filedocumented in this encounter Care Teams Quality Assurance Analyst Relationship Specialty Start Date End Date Unknown, Provider, PCP - General 11/13/12 documented as of this encounter
--- OUTSIDE RECORDS SUMMARY | 2022-10-18 13:22 | XMS_ITS | Encounter Summary ---
:1970 Author Organization [facility] [place] [address] Care Team Providers Name Role Phone Lev De La Cruz GERA Primary Care Provider Reason for Referral Diagnostic Test (Routine) - Closed Specialty Diagnoses / Procedures Referred By Contact Refer red To Contact Cardiology Diagnoses Syncope, unspecified syncope type Car Verduzco [facility] Non-Inv Card La b Procedures Mobile Echo [address] [phone] Fax: Referral ID Status Reason Start Date Expiration Date Visits V isits Requested Authorized [id number] Closed Specialty 10/17/2022 10/17/2023 1 1 Service Requested Reason for Visit Diagnostic Test (Routine) - Closed Specialty Diagnoses / Procedures Referred By Contact Refer red To Contact Cardiology Diagnoses Syncope, unspecified syncope type Car Verduzco [facility] Non-Inv Card La b Procedures Mobile Echo [address] [phone] Fax: Referral ID Status Reason Start Date Expiration Date Visits V isits Requested Authorized [id number] Closed Specialty 10/17/2022 10/17/2023 1 1 Service Requested Encounter Details Date Type Department Care Team Description 10/17/2022 Hospital Encounter Mobile Agustina, Syncope, unspecified Echocardiography MD Car syncope type [address] [id number] [phone] Social History Tobacco Use Types Packs/Day Years Used Date Smoking Tobacco: Never Assessed Sex Assigned at Date Recorded Not on file documented as of this encounter Plan of Treatment Not on filedocumented as of this encounter Procedures Procedure Name Priority Date/Time Associated Comments Diagnosis ECHOCARDIOGRAM COMPLETE Routine 10/17/2022 12:51 Syncope, Results for this PM EST unspecified syncope procedur e are in type the results section. documented in this encounter Results ECHOCARDIOGRAM COMPLETE (10/17/2022 12:51 PM EST) P athologist Signature EF 63 [employer] SYSTEM Anatomical Region Laterality Modality Other Specimen (Source) Anatomical Collection Method Collection Time Re ceived Time Location / / Volume Laterality 10/17/2022 11:27 AM EST Narrative 10/17/2022 2:18 PM EST ? Echocardiogram Report Name: CARLIN ALMONTE ?Study Date: 10/17/2022 11:27 AMBP: 109/71 mmHg ? Patient Location: 4A 0000 : 1970 ? Height: 178 cm ? Account: [id number] Age: 52 yrs ? Weight: 82 kg Gender: Male ?BSA: 2.0 m2 Ordering Physician: KAI VERDUZCO HER Referring Physician: DANISH VERDUZCO PHER Performed By: AGUSTIN Reason For Study: Syncope Exam Location: [facility]. Interpretation Summary Techncially suboptimal. Left ventricular systolic function is no rmal. The left ventricular ejection fraction is 63% by Torres's biplane. Th ere are no segmental wall motion abnormalities. The right ventricle is of normal size. R ight ventricular systolic function is normal. RVSP is normal. There is mild mitral and tricuspid regur gitaiton. See report for additional findings. No c omparison study is available. Procedure Complete-[id number]. Satisfactory quality. Left Ventricle Left ventricle is of normal size. Wall t hickness is normal. Left ventricular systolic function is normal. The left ve ntricular ejection fraction is 63% by Torres's biplane. There are no segmenta l wall motion abnormalities. Right Ventricle The right ventricle is of normal size. R ight ventricular wall thickness is normal. Right ventricular systolic function is n ormal. Left Atrium The left atrium is normal. No abnormalit y of the interatrial septum is identified. Right Atrium The right atrium is normal. Aortic Valve The aortic valve is structurally normal. There is no aortic stenosis. There is no aortic regurgitation. Mitral Valve The mitral valve is structurally normal. There is mild mitral regurgitation. Tricuspid Valve The tricuspid valve is structurally norm al. There is mild tricuspid regurgitation. Pulmonic Valve The pulmonic valve appears to be structu rally normal. There is mild pulmonic valve regurgitation. Great Arteries The aortic root is of normal size. No ab normalities are identified. Ascending aorta is normal in size. Venous Inferior vena cava is normal in size. In ferior vena cava collapse greater than 50% with respiration. Pericardium/Pleural The pericardium appears normal. There is no pericardial effusion. Hemodynamics The peak right ventricular systolic pres sure is 20 mmHg. Left ventricular diastolic function is indeterminate. Lef t ventricular filling pressure is normal. Ejection Fraction ?2D Measurem ents ? Volumes LV Biplane EF: 62.6 % ? IVSd: 0.85 c m ?EDV Biplane: 124.0 ml ?L VPWd: 0.83 cm ? EDV Biplane Index: 62.1 ? ESV Biplane: 46.4 ml ? ESV Biplane Index: 23.3 Doppler TR max rodri: 205.3 cm/sec LV V1 VTI: 26.9 cm Ao V2 VTI: 30.4 cm Ao Max: 143.4 cm/sec Ao valve max: 8.2 mmHg MV E max rodri: 68.8 cm/sec MV A max rodri: 46.6 cm/sec MV E/A: 1.5 Dimensionless index Aov: 0.89 I ?WMSI = 1.00 ? % Normal = 1 00 ?Segments ??Size X - Cannot ?2 - ?4 - ?1-2 ? small Interpret ?1 - Normal ?? Hypokinetic 3 - Akinetic Dyskinetic ?? 3-5 ? moderate 5 - ? 6-14 ?large Aneurysmal ?15-16 ?? diffuse Procedure Note Gabo Hyde MD - 10/17/2022Formjluis g of this note might be different from the original. Echocardiogram Report Name: CARLIN ALMONTE Study Date: 2 11:27 AMBP: 109/71 mmHg Patient Location: [address] [place] [address] : 1970 Height: 178 cm Account: [id number] Age: 52 yrs Weight: 82 kg Gender: Male BSA: 2.0 m2 Ordering Physician: KAI VERDUZCO HER Referring Physician: DANISH VERDUZCO [facility] Performed By: AGUSTIN Reason For Study: Syncope Exam Location: [facility]. Interpretation Summary Techncially suboptimal. Left ventricular systolic function is no rmal. The left ventricular ejection fraction is 63% by Torres's biplane. Th ere are no segmental wall motion abnormalities. The right ventricle is of normal size. R ight ventricular systolic function is normal. RVSP is normal. There is mild mitral and tricuspid regur gitaiton. See report for additional findings. No c omparison study is available. Procedure Complete-[id number]. Satisfactory quality. Left Ventricle Left ventricle is of normal size. Wall t hickness is normal. Left ventricular systolic function is normal. The left ve ntricular ejection fraction is 63% by Torres's biplane. There are no segmenta l wall motion abnormalities. Right Ventricle The right ventricle is of normal size. R ight ventricular wall thickness is normal. Right ventricular systolic function is n ormal. Left Atrium The left atrium is normal. No abnormalit y of the interatrial septum is identified. Right Atrium The right atrium is normal. Aortic Valve The aortic valve is structurally normal. There is no aortic stenosis. There is no aortic regurgitation. Mitral Valve The mitral valve is structurally normal. There is mild mitral regurgitation. Tricuspid Valve The tricuspid valve is structurally norm al. There is mild tricuspid regurgitation. Pulmonic Valve The pulmonic valve appears to be structu rally normal. There is mild pulmonic valve regurgitation. Great Arteries The aortic root is of normal size. No ab normalities are identified. Ascending aorta is normal in size. Venous Inferior vena cava is normal in size. In ferior vena cava collapse greater than 50% with respiration. Pericardium/Pleural The pericardium appears normal. There is no pericardial effusion. Hemodynamics The peak right ventricular systolic pres sure is 20 mmHg. Left ventricular diastolic function is indeterminate. Lef t ventricular filling pressure is normal. Ejection Fraction 2D Measurements Volume s LV Biplane EF: 62.6 % IVSd: 0.85 cm EDV Biplane: 124.0 ml LVPWd: 0.83 cm EDV Biplane Index: 62.1 ESV Biplane: 46.4 ml ESV Biplane Index: 23.3 Doppler TR max rodri: 205.3 cm/sec LV V1 VTI: 26.9 cm Ao V2 VTI: 30.4 cm Ao Max: 143.4 cm/sec Ao valve max: 8.2 mmHg MV E max rodri: 68.8 cm/sec MV A max rodri: 46.6 cm/sec MV E/A: 1.5 Dimensionless index Aov: 0.89 I WMSI = 1.00 % Normal = 100 Segments Size X - Cannot 2 - 4 - 1-2 small Interpret 1 - Normal Hypokinetic 3 - James netic Dyskinetic 3-5 moderate 5 - 6-14 large Aneurysmal 15-16 diffuse Car Verduzco MD ECHO ORDERABLES documented in this encounter Visit Diagnoses Diagnosis Syncope, unspecified syncope type documented in this encounter Care Teams Wood Science Professor Relationship Specialty Start Date End Date Lev De La Cruz APRN PCP - General Family Medicine 10/17/[address] [place] [address] documented as of this encounter
--- OUTSIDE RECORDS SUMMARY | 2022-10-18 13:22 | XMS_ITS | Encounter Summary ---
:1970 Author Organization [facility] Address [address] [place] [address] Care Team Providers Name Role Phone Unknown, Provider Primary Care Provider Encounter Details Date Type Department Care Team Description 04/12/2022 Lab Requisition [facility] Outr Resulting Lab, Pathology & Laboratory Provider [facility] [address], [place] [id number] Social History Tobacco Use Types Packs/Day Years Used Date Smoking Tobacco: Never Assessed Sex Assigned at Date Recorded Not on file documented as of this encounter Plan of Treatment Not on filedocumented as of this encounter Procedures Procedure Name Priority Date/Time Associated Comments Diagnosis HIV 1/2 ANTIGEN AND Routine 04/12/2022 10:50 Resu lts for this ANTIBODY, 4TH EDT procedure are in GENERATION the results section. documented in this encounter Results HIV 1/2 ANTIGEN AND ANTIBODY, 4TH GENERATION (04/12/2022 10:50 EDT) [facility] Method Time Signature HIV 1 and 2 Negative Negative 04/13/2022 [facility] Antibody/p24 9:29 EDT CENTER Antigen, 4th LABORATORY Generation SERVICES Comment: If acute HIV-1 infection is constantino pected in a high risk patient, submit plasma specimen for HIV-1 RNA quantitation test . Specimen Anatomical Collection Method Collection Time Receive d Time (Source) Location / / Volume Laterality Blood VENOUS BLOOD / 04/12/2022 10:50 Unknown EDT 21:[address] [facility] - 04/13/2022 9:29 EDT Fourth Generation assay performed on the Siemens OffiSyncaur XPT. Provider Outr Resulting Lab IMMUNOLOGY AND SEROLOGY OR DERABLES Performing Organization Address City/State/ZIP Code Phon e Number [facility] [address] [place] [address] SERVICES documented in this encounter Visit Diagnoses Not on filedocumented in this encounter Care Teams Security Police Relationship Specialty Start Date End Date Unknown, Provider, PCP - General 11/13/12 documented as of this encounter
--- OUTSIDE RECORDS SUMMARY | 2022-10-18 13:22 | XMS_ITS | Clinical Summary ---
:1970 Author Organization [facility] [place] [address] Care Team Providers Name Role Phone Lev De La Cruz GERA Primary Care Provider Encounters Date Type Specialty Care Team Description 10/17/2022 Hospital Encounter Cardiology Stranathan, Syncope, unspecified MD Car syncope type from Last 3 Months Social History Tobacco Use Types Packs/Day Years Used Date Smoking Tobacco: Never Assessed Sex Assigned at Date Recorded Not on file Plan of Treatment Health Maintenance Due Date Last Done Comments Hepatitis B vaccine (0-59 yrs) (1 of 3 - 3-dose series) 02/22/19 74 Covid-19 Vaccine (#1) 1970 HIV screen 02/22/1990 Hepatitis C Screening 02/22/1990 Lipid Screening 02/22/1990 Tdap adult 02/22/1991 Tetanus vaccine 02/22/1991 Colonoscopy 02/22/2017 Zoster vaccine (1 of 2) 02/22/2022 Influenza (Flu) vaccine (1 of 1 - Influenza standard 07/19/2022 series) Procedures Procedure Name Priority Date/Time Associated Comments Diagnosis ECHOCARDIOGRAM COMPLETE Routine 10/17/2022 12:51 Syncope, Results for this PM EST unspecified syncope procedur e are in type the results section. from Last 3 Months Results ECHOCARDIOGRAM COMPLETE (10/17/2022 12:51 PM EST) P athologist Signature EF 63 [employer] SYSTEM Anatomical Region Laterality Modality Other Specimen (Source) Anatomical Collection Method Collection Time Re ceived Time Location / / Volume Laterality 10/17/2022 11:27 AM EST Narrative 10/17/2022 2:18 PM EST ? Echocardiogram Report Name: CARLIN ALMONTE ?Study Date: 10/17/2022 11:27 AMBP: 109/71 mmHg ? Patient Location: 4A 0000 : 1970 ? Height: 178 cm ? Account: [id number] Age: 52 yrs ? Weight: 82 kg Gender: Male ?BSA: 2.0 m2 Ordering Physician: KAI VERDUZCO HER Referring Physician: DANISH VERDUZCO [facility] Performed By: HI Reason For Study: Syncope Exam Location: [facility]. Interpretation Summary Techncially suboptimal. Left ventricular [...] No c omparison study is available. Procedure Complete-[id number]. Satisfactory quality. Left Ventricle Left ventricle is [...] diffuse Procedure Note Gabo Hyde MD - 10/17/2022Syl lindsay of this note might be different from the original. Echocardiogram Report Name: CARLIN ALMONTE Study Date: 11:27 AMBP: 109/71 mmHg Patient Location: [address] [place] [address] : 1970 Height: 178 cm Account: [id number] Age: 52 yrs Weight: 82 kg Gender: Male BSA: 2.0 m2 Ordering Physician: KAI VERDUZCO HER Referring Physician: DANISH VERDUZCO PHER Performed By: AGUSTIN Reason For Study: Syncope Exam Location: [facility]. Interpretation Summary Techncially suboptimal. Left ventricular [...] No c omparison study is available. Procedure Complete-[id number]. Satisfactory quality. Left Ventricle Left ventricle is [...] 15-16 diffuse Car Verduzco MD ECHO ORDERABLES from Last 3 Months Insurance Payer Benefit Plan / Subscriber ID Effective Dates Phone Addre ss Type Group [employer] HE[employer] PLANS [id number] 2016-Cheryl [phone] [id number] [place] [address] Care Teams Workers Compensation Consultant Relationship Specialty Start Date End Date Lev De La Cruz APRN PCP - General Family Medicine 10/17/22 [address] [place] [address]
--- NOTE | 2022-10-18 16:40 | CHAPLAIN ---
I visited with Carlin shortly before he was discharged. He is an [employer] employee, as is his , Belia. Carlin was reading through his paperwork. He's going home with a heart monitor and scheduled follow up appointments at [facility]. He has a friend who is doctor, so Carlin said he might call his friend to help him understand some of the paperwork.
== END 2022-11-17 23:59 | disposition home or self-care (01) ==
LOC: RT 13:20
PROVIDERS: Visit Provider Internal Medicine
DX: R55 Syncope and collapse (principal)
CPT/HCPCS: 93270

== ENCOUNTER 2022-10-23 15:09 | Outpatient (CLI) | payer OTHER, SELFPAY ==
[2022-10-23 16:17] LABS: BUN 25 mg/dL (7-18); CREATININE 1.3 mg/dL (0.70-1.30); Calcium 9.2 mg/dL (8.5-10.1); Chloride 103 mmol/L (98-107); Estimated GFR 66.93 (mL/min/1.73m2); Glucose 199 mg/dL (74-106); Magnesium 2.2 mg/dL (1.8-2.4); Potassium 4.2 mmol/L (3.5-5.1); Sodium 139 mmol/L (136-145)
== END 2022-10-23 15:10 | disposition home or self-care (01) ==
LOC: LBO 15:09
PROVIDERS: Visit Provider Internal Medicine
DX: E87.6 Hypokalemia (principal)
CPT/HCPCS: 36415; 80048; 83735

== ENCOUNTER 2022-10-31 14:04 | Outpatient (REF) | payer OTHER, SELFPAY ==
[2022-10-31 21:01] LABS: Abs Immature Grans 0.02 10^3/uL (0.0-0.06); Absolute Basophil Count 0.09 10^3/uL (0.0-0.2); Absolute Eosinophil Count 0.18 10^3/uL (0.0-0.7); Absolute Lymphocyte Count 1.35 10^3/uL (1.2-3.4); Absolute Monocyte Count 0.43 10^3/uL (0.1-0.8); Absolute Neutrophil Count 4.91 10^3/uL (1.2-6.7); Basophils % 1.3; Eosinophils % 2.6; HCT 42.5 % (40.0-50.0); Immature Grans % 0.3; Lymphocytes % 19.3; MCH 29.9 pg (27.0-33.0); MCHC 32.9 % (32.0-36.0); MCV 91 fL (80-95); MPV 10.7 fL (8.0-11.0); Monocytes % 6.2; Neutrophils % 70.3; Platelet Count 293 10^3/uL (130-400); RBC 4.68 10^6/uL (4.36-5.78); RDW-SD 40.2 fL; WBC 6.98 10^3/uL (4.4-10.8)
[2022-10-31 21:22] LABS: ALT 54 U/L (16-63); AST 30 U/L (15-37); Albumin 3.8 g/dL (3.4-5.0); Alkaline Phosphatase 84 U/L (46-116); Anion Gap 5.3 mmol/L (3-11); BUN 23 mg/dL (7-18); Bilirubin, Total 0.6 mg/dL (0.2-1.0); CO2 29.7 mmol/L (21.0-32.0); CREATININE 1.1 mg/dL (0.70-1.30); Calcium 9.1 mg/dL (8.5-10.1); Chloride 103 mmol/L (98-107); Estimated GFR 81.78 (mL/min/1.73m2); Glucose 107 mg/dL (74-106); Magnesium 2.2 mg/dL (1.8-2.4); Potassium 4.6 mmol/L (3.5-5.1); Sodium 138 mmol/L (136-145); Total Protein 7.4 g/dL (6.4-8.2)
== END 2022-10-31 14:05 | disposition home or self-care (01) ==
LOC: NCHCN 14:04
PROVIDERS: Visit Provider Nurse Practitioner Family
DX: R42 Dizziness and giddiness (principal); E87.6 Hypokalemia
CPT/HCPCS: 80053; 83735; 85025

== ENCOUNTER 2022-11-22 11:59 | Outpatient (CLI) | payer OTHER, SELFPAY ==
--- NOTE | 2022-11-22 12:01 | W.CARDEVENT ---
Date of service: 11/22/22 Time of Service: 12:01 Cardiac Event Recorder Referring Provider:: Maria M Ramos Indications:: Syncope Cardiac Event Note: This is a 30-day event monitor ordered for syncope Rhythm throughout was sinus with an average heart rate of 66. Minimum was 54, maximum 155 There were rare atrial premature beats. There were no significant ventricular dysrhythmias There was no atrial fibrillation, no SVT, no high-grade AV block, no pauses greater than 3 seconds Patient symptoms were reported. These were generally associated with sinus rhythm in 70s
== END 2022-11-22 12:00 | disposition home or self-care (01) ==
LOC: CARDOPNVT 11:59
PROVIDERS: Visit Provider Internal Medicine Cardiovascular Disease
DX: R55 Syncope and collapse (principal)

== ENCOUNTER 2022-12-15 15:07 | Emergency (ER) | payer OTHER, SELFPAY ==
[2022-12-15 15:09] VITALS: BP 129/72; PULSE 62; RESP 18; TEMP 36.7; O2SAT 98
[2022-12-15] MEDS: diphenhydrAMINE 50 MG/ML VIAL IVP (15:23)
[2022-12-15] MEDS: methylPREDNISolone SUCC 125 MG VIAL IVP (15:23)
[2022-12-15] MEDS: Normal Saline 1,000 ML 1000 ML IV (15:23)
[2022-12-15] MEDS: Famotidine 20 MG/2 ML VIAL IVP (15:23)
--- NOTE | 2022-12-15 15:36 | ED.GENADUL_ITS ---
Discharge Plan Discharge Details Chief Complaint: Allergic Primary Care Provider: Artem De La Cruz RN,Ona ED Provider: Giovany Noble Home Meds and New Rx's Prescriptions: No Action epinephrine [EpiPen 2-Julio] 0.3 MG/0.3 ML auto-injector 0.3 mg IJ PRN PRNQty: 1 0RF lidocaine 5 % Adhesive Patch,Medicated 1 patch topical DAILY PRN PRN (Reason: lower back pain) Qty: 30 0RF Rx Instructions: On for 12 hrs, off for 12 hrs potassium chloride 20 mEq tablet extended release 20 meq PO DAILY Qty: 14 0RF fluticasone propion-salmeterol [Advair Diskus] 250-50 mcg/dose blister with device 1 ea INHALATION BID PRN Medical Decision Making 52-year-old gentleman who has had a syncopal episode secondary to allergic reaction previously, has never had to be intubated, carries an EpiPen, is presenting now for an allergic reaction secondary to shrimp exposure just prior to arrival. Patient appears slightly anxious, no airway compromise. No angioedema. Plan to provide IV fluids, Benadryl, famotidine, Solu-Medrol. No clear indication to initiate epinephrine. Patient reports that he feels as though his symptoms are improving, rash is resolving on the face. He reports the tingling is improving as well. He does still have a rash on his upper extremities, chest, back but this is more faint than initial presentation. No evidence of decompensation. No indication to initiate epinephrine. Patient will need to be observed for 1-2 hours, likely discharge on steroids, may use [id number] H1 and H2 blockers. This documentation was generated using [employer] system, please disregard any oddities of phrase or misspellings. Medical Records Medical records reviewed: Yes I reviewed the patient's medical records. HPI General Mode of arrival: ambulatory . Date/Time Provider Initiated Documentation: 12/15/22 15:11 . Limitations to Documentation: no limitations . Information obtained by: patient . HPI Narrative: This is a 52-year-old gentleman, reports past history of GERD, anxiety, multiple allergies, 1 allergic reaction which was severe resulted in a syncopal episode, presents today reporting exposure to shrimp just prior to arrival, now feeling anxious, itchy, skin rash. Patient states that he has never required intubation and he did not use his epinephrine today. He denies difficulty speaking, swallowing, managing his own secretions, chest pain or shortness of breath. He did not take any additional medications prior to arrival. Patient states that coworkers yesterday cooked shrimp in the microwave and he believes that this was his exposure. Related Data Home Medications Medication Instructions Recorded Confirmed epinephrine 0.3 mg/0.3 mL 0.3 mg (0.3 mL) IJ PRN PRN #1 mL 02/14/15 12/15/22 injection, auto-injector (EpiPen 2-Julio) fluticasone 250 mcg-salmeterol 50 1 ea inhalation BID PRN 08/16/22 12/15/22 mcg/dose blistr powdr for inhalation (Advair Diskus) lidocaine 5 % topical patch 1 patch topical DAILY PRN PRN 10/18/22 12/15/22 lower back pain #30 ea potassium chloride 20 mEq 20 meq PO DAILY #14 tabs 10/18/22 12/15/22 tablet,extended release Previous Rx's Medication Instructions Recorded epinephrine 0.3 mg/0.3 mL 0.3 mg (0.3 mL) IJ PRN PRN #1 mL 02/14/15 injection, auto-injector (EpiPen 2-Julio) lidocaine 5 % topical patch 1 patch topical DAILY PRN PRN 10/18/22 lower back pain #30 ea potassium chloride 20 mEq 20 meq PO DAILY #14 tabs 10/18/22 tablet,extended release Allergies Allergy/AdvReac Type Severity Reaction Status Date / Time barley Allergy Severe Verified 12/15/22 15:11 almond Allergy Mild Verified 12/15/22 15:11 corn Allergy Mild Verified 12/15/22 15:11 soybean Allergy Mild Hives,Itchy Verified 12/15/22 15:11 milk AdvReac Intermediate Nausea Verified 12/15/22 15:11 shellfish derived AdvReac Intermediate Swelling/Ed Verified 12/15/22 15:11 shen hemp Allergy Severe Anaphylaxsi Uncoded 12/15/22 15:11 s pollen AdvReac Intermediate Hives Uncoded 12/15/22 15:11 General Stated Complaint: Allergic VEE: 3 Review of Systems Constitutional Constitutional: Denies headache(s) ENT Ears, Nose, Mouth, and Throat: Denies headache(s), Denies throat swelling and Denies tongue swelling Cardiovascular Cardiovascular: Denies chest pain and Denies dyspnea Respiratory Respiratory: Denies cough and Denies dyspnea Gastrointestinal Gastrointestinal: Denies abdominal pain, Denies nausea and Denies vomiting Musculoskeletal Musculoskeletal: Reports tingling Integumentary/Breasts Skin/Breast: Reports rash Neurologic Neurologic: Denies headache(s) and Reports tingling Psychiatric Psychiatric: Reports anxiety Allergic/Immunologic Allergic/Immunologic: Denies throat swelling and Denies tongue swelling PFSH All Active Problems Hypokalemia (Acute) Right bundle branch block (Acute) Syncope (Chronic) Chest pain (Acute) Screening for colon cancer (Acute) History of excessive cerumen (Acute) GERD (gastroesophageal reflux disease) (Chronic) Asthma, mild (Acute) Obsessive compulsive disorder (Acute) Anxiety (Chronic) Eczema (Acute) Muscle spasm of both lower legs (Acute) Prediabetes (Acute) Knee pain, right (Acute) Light headedness (Acute) Nasal vestibulitis (Acute) Impacted cerumen, right ear (Acute) Near syncope (Acute) MCL sprain of right knee (Acute) Medical History Asthma Closed fracture of 5th metacarpal Diarrhea Surgical History Hx of colonoscopy Hx of endoscopy Family History Father Heart disease Diabetes Mother Heart disease Social History Smoking/Tobacco Use Status: Former Tobacco Use tobacco type: cigarettes and cigars Quit Date: 11/18/10 Tobacco: How many years used: 25 Smoking risk assessment performed?: Yes Alcohol Intake: current Alcohol Intake frequency: a few times a month Alcohol type: wine Drug use: Occasionally Substance use type: marijuana Household members: spouse Current gender identity: male What is your relationship status?: Panel score (0-1 are the most socially isolated patients): 1 Do you feel safe at home: Yes Do you feel safe in your relationship?: Yes Exam Const General: cooperative, healthy appearing, comfortable, no acute distress and anxious (Slightly) Orientation: alert, awake and oriented x3 HENMT Head: normal to inspection, normocephalic and atraumatic Face and sinus: erythema Mouth: oral mucosae normal and moist mucous membranes Throat: posterior oropharynx normal Eyes General: appearance normal, both eyes and all related structures Conjunctivae: conjunctivae normal Neck Neck: normal visual inspection, full ROM, no meningeal signs, trachea midline and supple Resp Effort & Inspection: normal respiratory effort and able to speak in complete sentences Auscultation: clear to auscultation bilaterally Cardio Rate: regular rate Rhythm: regular rhythm GI Inspection: normal to inspection Palpation: soft, not firm, no guarding and nontender Back/Spine/Pelvis Back: No back tenderness Skin Other: Hive-like rash bilateral facial cheeks, left shoulder, central chest, mid back, bilateral upper extremities. Neuro General: patient alert, patient awake, patient oriented x3, moves all extremities and no focal motor deficits Cognition: normal cognition Speech: speech normal Gait: normal gait Motor: muscle tone normal throughout Sensory Exam: no sensory deficits noted Extrem General: full ROM and capillary refill normal Psych Appearance: grossly normal Mental Status: mental status grossly normal Course Vital Signs Vital signs: Vital Signs Temperature 36.7 C 12/15/22 15:09 Pulse 62 12/15/22 15:09 Respiratory Rate 18 12/15/22 15:09 Blood Pressure 129/72 12/15/22 15:09 Pulse Oximetry 98 12/15/22 15:09 Temperature 36.7 C 12/15/22 15:09 Temperature Source Skin 12/15/22 15:09 Pulse 62 12/15/22 15:09 Respiratory Rate 18 12/15/22 15:09 Respiratory Effort 12/15/22 15:24 Respiratory Pattern Normal 12/15/22 15:24 Blood Pressure 129/72 12/15/22 15:09 Blood Pressure Position Sitting 12/15/22 15:09 Pulse Oximetry 98 12/15/22 15:09 Oxygen Delivery Method Room Air 12/15/22 15:09 Oxygen Flow Rate 0 12/15/22 15:09
--- NOTE | 2022-12-15 15:52 | W.EDPROG ---
Date of service: 12/15/22 Time of Service: 15:52 Medical Decision Making Care assumed from provider (CHAYO Wheeler) Please see their initial HPI, PE, and documentation. Discussed patient details and case and pending workup and disposition. Patient is hemodynamically stable, and alert and oriented. At the time of signout awaiting observation for allergic reaction to some shrimp. Patient is received methylprednisolone, Pepcid and Benadryl. 1643: Patient reevaluation, he reports feeling better and the numbness and tingling has decreased. The rash is also dissipated. Patient given prescription for Pepcid instructed to take Benadryl 1 to 2 tablets every 6-8 hours as needed for itching and hives and strict return instructions discussed he verbalizes understanding. Patient hemodynamically stable prior to discharge. This text was generated using [employer] system, please disregard any oddities of phrase or misspellings. Sign Out Sign Out Data: Sign Out Comment: Allergic reaction to likely shrimp just prior to arrival, presented with paresthesias, anxiety, skin rash. Established IV access, giving IV fluids, famotidine, Benadryl, Solu-Medrol. Symptoms are improving. Patient will likely require observation for 1-2 hours and discharged with steroid prescription Last updated by Giovany Noble PA at 12/15/22 15:43 Discharge Plan Disposition Patient Disposition: Home Condition: Improving Discharge Details Clinical Impression: Allergic reaction to shellfish Primary Care Provider: Artem De La Cruz RN,[facility] Provider: Sera Stanley Home Meds and New Rx's Prescriptions: New famotidine [Pepcid] 40 mg tablet 40 mg PO DAILY 7 Days Qty: 7 0RF Rx Instructions: Take 1 tablet daily for the next 7 days. Continued epinephrine [EpiPen 2-Julio] 0.3 MG/0.3 ML auto-injector 0.3 mg IJ PRN PRNQty: 1 0RF lidocaine 5 % Adhesive Patch,Medicated 1 patch topical DAILY PRN PRN (Reason: lower back pain) Qty: 30 0RF Rx Instructions: On for 12 hrs, off for 12 hrs potassium chloride 20 mEq tablet extended release 20 meq PO DAILY Qty: 14 0RF fluticasone propion-salmeterol [Advair Diskus] 250-50 mcg/dose blister with device 1 ea INHALATION BID PRN Discharge Instructions Instructions: General Allergic Reaction (ED) Additional Instructions: Please take 1 or 2 Benadryl every 6-8 hours as needed for hives or itching. You may take Pepcid once daily for the next 7 days. Please use your EpiPen for any trouble swallowing or throat closing or wheezing. Follow up with primary care provider in 3-5 days. Return to ED sooner if any worsening or concerns. Increase oral fluids. Stand Alone Forms: Work Release Referrals: Artem De La Cruz RN,[facility] [Primary Care Provider] - 1 week Discharge Data Discharge Date/Time-TO BE ENTERED AT DEPARTURE: 12/15/22 17:22
== END 2022-12-15 17:22 | disposition home or self-care (01) ==
PROVIDERS: Emergency Provider Registered Nurse Emergency
DX: T78.1XXA Other adverse food reactions, not elsewhere classified, initial encounter (principal); J45.909 Unspecified asthma, uncomplicated; Z79.51 Long term (current) use of inhaled steroids; X58.XXXA Exposure to other specified factors, initial encounter
CPT/HCPCS: 96361; 96374; 96375; 99284; J1200; J2930

== ENCOUNTER 2022-12-31 13:09 | Outpatient (CLI) | payer OTHER, SELFPAY ==
--- NOTE | 2022-12-31 | DI.RAD_ITS ---
Exam(s) XR CHEST 2V PA LATERAL EXAM: XR CHEST 2V PA LATERAL CLINICAL HISTORY: COVID-19 CORONAVIRUS INFECTION, U07.1 TECHNIQUE: 2D digital imaging was performed. COMPARISON: CR,XR XR CHEST 2V PA LATERAL from 10/16/2022 FINDINGS: HEART: Normal size. Aorta: Not dilated. PULMONARY VASCULATURE: Normal. LUNGS: Suboptimal pulmonary inflation. Lungs are zzclear. PLEURAL SPACE: No pleural effusion or pneumothorax. BONE:Unremarkable for age. IMPRESSION: No acute abnormality. DATA REPOSITORY: RADIATION DOSE DELIVERED:
== END 2022-12-31 13:29 ==
LOC: DI 13:10
PROVIDERS: PCP Nurse Practitioner Family; Visit Provider Nurse Practitioner Family
DX: U07.1 COVID-19 (principal)
CPT/HCPCS: 71046

== ENCOUNTER 2023-05-01 13:27 | Outpatient (REF) | payer OTHER, SELFPAY ==
[2023-05-01 16:12] LABS: Abs Immature Grans 0.01 10^3/uL (0.0-0.06); Absolute Eosinophil Count 0.28 10^3/uL (0.0-0.7); Absolute Lymphocyte Count 1.53 10^3/uL (1.2-3.4); Absolute Monocyte Count 0.58 10^3/uL (0.1-0.8); Absolute Neutrophil Count 3.52 10^3/uL (1.2-6.7); Basophils % 1.7; Eosinophils % 4.7; HGB 13.5 g/dL (13.5-17.5); Immature Grans % 0.2; Lymphocytes % 25.4; MCH 30.1 pg (27.0-33.0); MCHC 32.9 % (32.0-36.0); MCV 91 fL (80-95); MPV 10.7 fL (8.0-11.0); Monocytes % 9.6; Neutrophils % 58.4; Platelet Count 261 10^3/uL (130-400); RBC 4.49 10^6/uL (4.36-5.78); RDW 12.3 % (11.8-14.1); RDW-SD 41.1 fL; WBC 6.02 10^3/uL (4.4-10.8)
[2023-05-01 16:28] LABS: Hemoglobin A1C 5.7 % (<5.7)
[2023-05-01 16:29] LABS: ALT 40 U/L (16-63); AST 26 U/L (15-37); Albumin 3.4 g/dL (3.4-5.0); Alkaline Phosphatase 71 U/L (46-116); Anion Gap 9.8 mmol/L (3-11); BUN 20 mg/dL (7-18); Bilirubin, Total 0.4 mg/dL (0.2-1.0); CO2 25.2 mmol/L (21.0-32.0); CREATININE 0.9 mg/dL (0.70-1.30); Calcium 8.6 mg/dL (8.5-10.1); Chloride 107 mmol/L (98-107); Glucose 103 mg/dL (74-106); Potassium 3.7 mmol/L (3.5-5.1); Sodium 142 mmol/L (136-145); Total Protein 6.8 g/dL (6.4-8.2)
== END 2023-05-01 13:28 | disposition home or self-care (01) ==
LOC: NCHCN 13:27
PROVIDERS: PCP Nurse Practitioner Family; Visit Provider Nurse Practitioner Family
DX: R00.1 Bradycardia, unspecified (principal); R55 Syncope and collapse; R73.03 Prediabetes; E87.6 Hypokalemia
CPT/HCPCS: 80053; 83036; 85025

== ENCOUNTER 2023-07-16 23:14 | Emergency (ER) | payer OTHER, SELFPAY ==
[2023-07-16 23:51] VITALS: BP 120/68; PULSE 72; RESP 16; O2SAT 100
[2023-07-16] MEDS: Lidocaine/Epinephri/Tetracaine Topical Gel 3 ML TP (23:56)
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
== END 2023-07-17 01:15 | disposition home or self-care (01) ==
LOC: ER 07-17 00:43
PROVIDERS: Emergency Provider Student in an Organized Health Care Education/Training Program; PCP Nurse Practitioner Family
DX: S01.111A Laceration without foreign body of right eyelid and periocular area, initial encounter (principal); Y04.2XXA Assault by strike against or bumped into by another person, initial encounter; Y92.239 Unspecified place in hospital as the place of occurrence of the external cause; Y99.0 Civilian activity done for income or pay; Z87.891 Personal history of nicotine dependence
CPT/HCPCS: 12011

== ENCOUNTER 2023-09-04 15:35 | Outpatient (CLI) | payer OTHER, SELFPAY ==
--- NOTE | 2023-09-04 15:00 | DI.MRI_ITS ---
Exam(s) MR BRAIN WO EXAM: MR BRAIN WO CLINICAL HISTORY: speech difficulty, brain concussion, S06.0XAA TECHNIQUE: Multiplanar multisequence MRI of the brain was performed. COMPARISON: No exams were available for comparison FINDINGS: CEREBRAL PARENCHYMA: There is no evidence of intracranial hemorrhage, mass effect, or shift of midline structures. There are no extra-axial fluid collections. Ventricles are not enlarged or shifted. There is no significant focal signal abnormality in the cerebellar hemispheres nor within the selma, m idbrain, and thalami. There is no abnormal signal abnormality in the periventricular white matter. There is no significant focal signal abnormality evident on diffusion imaging to suggest acute ischem ic event. PITUITARY GLAND: No mass nor parasellar abnormality. No obvious abnormality in the cavernous sinuses. FLOW VOIDS: The expected flow void are noted. No evidence of obvious aneurysm nor obvious vascular ma lformation. PARANASAL SINUSES: The visualized paranasal sinuses appear unremarkable. No obvious finding ORBITS: No obvious findings. IMPRESSION: No significant intracranial findings on this noninfused MRI scan of the brain. DATA REPOSITORY:
== END 2023-09-04 15:55 ==
LOC: DI 15:36
PROVIDERS: PCP Nurse Practitioner Family; Visit Provider Nurse Practitioner Family
DX: S06.0XAA Concussion with loss of consciousness status unknown, initial encounter (principal); X58.XXXA Exposure to other specified factors, initial encounter; R47.9 Unspecified speech disturbances
CPT/HCPCS: 70551

== ENCOUNTER 2023-11-08 07:52 | Emergency (ER) | payer OTHER, SELFPAY ==
[2023-11-08 07:56] VITALS: BP 129/90; PULSE 62; RESP 18; TEMP 36.4; O2SAT 96
--- NOTE | 2023-11-08 08:15 | DI.CT_ITS ---
Exam(s) CT HEAD FACIAL WO EXAM: CT HEAD FACIAL WO CLINICAL HISTORY: syncope with nasal and left orbit injury. TECHNIQUE: Imaging Protocol: Axial computed tomography images with coronal and sagittal reformatted images were created and reviewed COMPARISON: No exams were available for comparison FINDINGS: CT Head: Ventricles and Extra axial spaces: Normal in size and morphology for the patient's age. Hemorrhage: None. Cerebral parenchyma: No mass effect. No acute territorial infarct. Midline shift: None. Brainstem/Cerebellum: Normal. Calvarium: Normal. Visualized Paranasal sinuses/Mastoids: Mucosal thickening is seen in the maxillary sinuses bilaterall y. There is mucosal thickening in the ethmoid air cells and sphenoid sinuses. The frontal sinuses a nd mastoid air cells are clear. Soft Tissues: Unremarkable. CT Face: Facial Bones: No definite fracture is noted in facial bones. Sinuses and Mastoids: Paranasal sinusitis as described above. Globes, extraocular muscles, optic nerves and retrobulbar fat: Normal. Upper aerodigestive tract: Normal. Mandible and bilateral temporomandibular joints: Normal. Soft tissues: Normal. IMPRESSION: 1. No acute intracranial process. 2. No acute facial fracture. 3. Findings were discussed with the emergency department on the date of the examination. RADIATION DOSE DELIVERED: Total DLP DATA REPOSITORY: All CT scans at this facility are submitted to the National Radiology Data Registry (NRDR) Dose Index Registry (DIR) with the [employer] (ACR). RADIATION OPTIMIZATION: All CT scans at this facility use at least one of these dose optimization te chniques: automated exposure control; mA and/or kV adjustment per patient size (includes targeted exa ms where dose is matched to clinical indication); or iterative reconstruction.
[2023-11-08 08:48] LABS: Source Nasal/Nares
[2023-11-08 08:49] LABS: Abs Immature Grans 0.02 10^3/uL (0.0-0.06); Absolute Basophil Count 0.11 10^3/uL (0.0-0.2); Absolute Eosinophil Count 0.48 10^3/uL (0.0-0.7); Absolute Lymphocyte Count 0.97 10^3/uL (1.2-3.4); Absolute Monocyte Count 0.82 10^3/uL (0.1-0.8); Absolute Neutrophil Count 3.18 10^3/uL (1.2-6.7); Eosinophils % 8.6; HCT 42.7 % (40.0-50.0); Immature Grans % 0.4; Lymphocytes % 17.4; MCH 29.9 pg (27.0-33.0); MCHC 32.8 % (32.0-36.0); MCV 91 fL (80-95); MPV 9.4 fL (8.0-11.0); Monocytes % 14.7; Neutrophils % 56.9; Platelet Count 256 10^3/uL (130-400); RBC 4.68 10^6/uL (4.36-5.78); RDW 12.5 % (11.8-14.1); RDW-SD 41.2 fL; WBC 5.58 10^3/uL (4.4-10.8)
[2023-11-08 09:10] LABS: ALT 37 U/L (16-63); AST 27 U/L (15-37); Albumin 3.2 g/dL (3.4-5.0); Alkaline Phosphatase 79 U/L (46-116); Anion Gap 5.9 mmol/L (3-11); BUN 22 mg/dL (7-18); Bilirubin, Total 0.4 mg/dL (0.2-1.0); CO2 29.1 mmol/L (21.0-32.0); CREATININE 0.9 mg/dL (0.70-1.30); Calcium 8.6 mg/dL (8.5-10.1); Chloride 107 mmol/L (98-107); Glucose 112 mg/dL (74-106); Potassium 3.8 mmol/L (3.5-5.1); Sodium 142 mmol/L (136-145); Total Protein 6.9 g/dL (6.4-8.2)
[2023-11-08 09:29] LABS: COVID-19 PCR POSITIVE (Negative)
--- NOTE | 2023-11-08 09:34 | ED.GENADUL_ITS ---
Discharge Plan Disposition Patient Disposition: Home Condition: Stable Discharge Details Clinical Impression: Episode of syncope, COVID, Facial contusion Primary Care Provider: Lyn Mendoza ED Provider: Dago Mariee Home Meds and New Rx's Prescriptions: No Action epinephrine [EpiPen 2-Julio] 0.3 MG/0.3 ML auto-injector 0.3 mg IJ PRN PRNQty: 1 0RF potassium chloride 20 mEq tablet extended release 20 meq PO DAILY Qty: 14 0RF fluticasone propion-salmeterol [Advair Diskus] 250-50 mcg/dose blister with device 1 ea INHALATION BID PRN Discharge Instructions Instructions: Syncope (ED), Contusion in Adults (ED), COVID-19 (Coronavirus Disease 2019) (ED) Additional Instructions: Continue to monitor symptoms and if you have any further lightheadedness, another syncopal episode, severe headaches, or change in neurological condition return immediately to the emergency department for reassessment. Otherwise continue to take your medications as prescribed and follow-up with primary care provider as needed. Stay well-hydrated and get plenty of rest and follow workplace policy for positive COVID test. Stand Alone Forms: Work Release Referrals: Lyn Mendoza [Primary Care Provider] - Discharge Data Discharge Date/Time-TO BE ENTERED AT DEPARTURE: 11/08/23 10:37 Medical Decision Making Patient presenting to the emergency department for chief complaint of head injury. Patient states greater than 24 hours ago he had an unwitnessed syncopal episode where he fell in his basement striking the left orbit and his nose. Patient denies any other symptoms including chest pain shortness of breath dizzi ness lightheadedness any other discomfort beyond facial injury. Patient does have significant past medical history of significant head injury with prolonged concussive symptoms, hypokalemia, right bundle branch block. Physical exam shows ecchymosis and tenderness around left orbit and bridge of nose otherwise no and remainder exam is unremarkable. Will plan on performing labs, EKG, and CT imaging. Patient denies any need for pain medication pending results. He does also state though that he was exposed to COVID so we will do PCR testing. Review of labs is unremarkable with no emergent findings, no hypokalemia. CT imaging negative for any acute fracture or intracranial abnormality. Patient did test positive for COVID. Please see physician interpretation for full interpretation of EKG but upon my review patient is in sinus rhythm, bradycardia, no acute findings consistent with STEMI, right bundle branch block is noted. Discussed with patient positive COVID test. Patient is otherwise symptomatic so unclear on if this is residual positive testing or new infection. Will write patient a work note. Given that patient has no symptoms and unclear of when he became positive we will hold off on any antivirals. After discussion of diagnosis and plan of care patient has no further needs, questions, or concerns and states clear understanding to return to the emergency department for any worsening symptoms. This documentation was generated using [employer] system, please disregard any oddities of phrase or misspellings. Imaging Data Radiologic Study: Imaging: CT Scan Radiologist's impression: Exam(s) CT HEAD FACIAL WO EXAM: CT HEAD FACIAL WO CLINICAL HISTORY: syncope with nasal and left orbit injury. TECHNIQUE: Imaging Protocol: Axial computed tomography images with coronal and sagittal reformatted images were created and reviewed COMPARISON: No exams were available for comparison FINDINGS: CT Head: Ventricles and Extra axial spaces: Normal in size and morphology for the patient's age. Hemorrhage: None. Cerebral parenchyma: No mass effect. No acute territorial infarct. Midline shift: None. Brainstem/Cerebellum: Normal. Calvarium: Normal. Visualized Paranasal sinuses/Mastoids: Mucosal thickening is seen in the maxillary sinuses bilaterally. There is mucosal thickening in the ethmoid air cells and sphenoid sinuses. The frontal sinuses and mastoid air cells are clear. Soft Tissues: Unremarkable. CT Face: Facial Bones: No definite fracture is noted in facial bones. Sinuses and Mastoids: Paranasal sinusitis as described above. Globes, extraocular muscles, optic nerves and retrobulbar fat: Normal. Upper aerodigestive tract: Normal. Mandible and bilateral temporomandibular joints: Normal. Soft tissues: Normal. IMPRESSION: 1. No acute intracranial process. 2. No acute facial fracture. 3. Findings were discussed with the emergency department on the date of the examination. HPI General Mode of arrival: ambulatory . Date/Time Provider Initiated Documentation: 11/08/23 08:04 . Limitations to Documentation: no limitations . Information obtained by: patient and RN notes reviewed . History of Present Illness 53 year old M presents to the emergency department with the chief complaint of Syncope, left orbit and nasal injury, described as mild, and is localized to the face. Patient started experiencing this day(s) (1) and it has been constant. No relieving factors improve symptom(s), No exacerbating factors reported . Patient notes no other symptoms.. Patient did receive the following treatments prior to arrival, none Related Data Home Medications Medication Instructions Recorded Confirmed epinephrine 0.3 mg/0.3 mL 0.3 mg (0.3 mL) IJ PRN PRN #1 mL 02/14/15 11/08/23 injection, auto-injector (EpiPen 2-Julio) fluticasone 250 mcg-salmeterol 50 1 ea inhalation BID PRN 08/16/22 11/08/23 mcg/dose blistr powdr for inhalation (Advair Diskus) potassium chloride 20 mEq 20 meq PO DAILY #14 tabs 10/18/22 11/08/23 tablet,extended release Previous Rx's Medication Instructions Recorded epinephrine 0.3 mg/0.3 mL 0.3 mg (0.3 mL) IJ PRN PRN #1 mL 02/14/15 injection, auto-injector (EpiPen 2-Julio) potassium chloride 20 mEq 20 meq PO DAILY #14 tabs 10/18/22 tablet,extended release Allergies Allergy/AdvReac Type Severity Reaction Status Date / Time barley Allergy Severe Verified 11/08/23 08:01 almond Allergy Mild Verified 11/08/23 08:01 corn Allergy Mild Verified 11/08/23 08:01 soybean Allergy Mild Hives,Itchy Verified 11/08/23 08:01 milk AdvReac Intermediate Nausea Verified 11/08/23 08:01 shellfish derived AdvReac Intermediate Swelling/Ed Verified 11/08/23 08:01 shen hemp Allergy Severe Anaphylaxsi Uncoded 11/08/23 08:01 s pollen AdvReac Intermediate Hives Uncoded 11/08/23 08:01 General Stated Complaint: Fall/Non TraumaCriteria VEE: 3 Review of Systems Constitutional Constitutional: Denies chills, Denies fever(s) and Denies headache(s) Eyes Eyes: Denies change in vision and Denies eye pain ENT Ears, Nose, Mouth, and Throat: Reports as per HPI, Denies dizziness, Denies ear discharge, Reports facial pain, Denies headache(s), Reports nasal trauma, Denies neck pain and Denies sore throat Cardiovascular Cardiovascular: Denies chest pain, Reports syncope, Denies rapid heart rate, Denies irregular heart rhythm, Denies lightheadedness and Denies dyspnea Respiratory Respiratory: Denies cough and Denies dyspnea Gastrointestinal Gastrointestinal: Denies nausea and Denies vomiting Musculoskeletal Musculoskeletal: Denies back pain, Denies neck pain, Denies numbness and Denies tingling Neurologic Neurologic: Denies dizziness, Reports syncope, Denies headache(s), Denies numbness and Denies tingling PFSH All Active Problems (Updated 11/08/23 @ 10:27 by Dago Mariee NP) Facial contusion (Acute) COVID (Acute) Episode of syncope (Chronic) Low back pain (Acute) PTSD (post-traumatic stress disorder) (Acute) Brain concussion (Acute) Depression (Chronic) Lesion of uvula (Acute) Conductive hearing loss, external ear (Acute) Hypokalemia (Acute) Right bundle branch block (Acute) Syncope (Chronic) Chest pain (Acute) Screening for colon cancer (Acute) History of excessive cerumen (Acute) GERD (gastroesophageal reflux disease) (Chronic) Asthma, mild (Acute) Obsessive compulsive disorder (Acute) Anxiety (Chronic) Eczema (Acute) Muscle spasm of both lower legs (Acute) Prediabetes (Acute) Knee pain, right (Acute) Light headedness (Acute) Nasal vestibulitis (Acute) Impacted cerumen, right ear (Acute) Near syncope (Acute) MCL sprain of right knee (Acute) Medical History Diarrhea Closed fracture of 5th metacarpal Asthma Surgical History Hx of colonoscopy Hx of endoscopy Family History Father Heart disease Diabetes Mother Heart disease Social History Smoking/Tobacco Use Status: Former Tobacco Use tobacco type: cigarettes and cigars Quit Date: 11/18/10 Tobacco: How many years used: 25 Smoking risk assessment performed?: Yes Alcohol Intake: current Alcohol Intake frequency: a few times a month Alcohol type: wine Drug use: Occasionally Substance use type: marijuana Household members: spouse Current gender identity: male What is your relationship status?: Panel score (0-1 are the most socially isolated patients): 1 Do you feel safe at home: Yes Do you feel safe in your relationship?: Yes Exam Const General: cooperative, healthy appearing, no acute distress and well groomed Orientation: alert, awake and oriented x3 [facility] Head: normal to inspection Ears: hearing grossly normal bilaterally General nose exam: septum normal, no nasal discharge and external nose abnormal nasal abrasion Face and sinus: ecchymosis on the left periorbital Mouth: oral mucosae normal and moist mucous membranes Throat: posterior oropharynx normal Eyes Visual Vicente: normal visual vicente by confrontation Alignment and Position: alignment normal Periorbital: periorbital findings normal Eyelids: eyelids normal Sclera: sclerae normal Pupils: PERRL EOM: EOM intact bilaterally Neck Neck: normal visual inspection, full ROM and no meningeal signs Resp Effort & Inspection: normal respiratory effort and able to speak in complete sentences Auscultation: clear to auscultation bilaterally Cardio Rate: regular rate Rhythm: regular rhythm Heart Sounds: S1 normal and S2 normal Neuro General: patient alert, patient awake, patient oriented x3, gait normal, tone normal, moves all extremities, CN's II-XI intact bilaterally and not confused Cognition: normal cognition Speech: speech normal Motor: muscle tone normal throughout, strength 5/5 throughout, no movement abnormalities noted and no fasciculations Course Vital Signs Vital signs: Vital Signs Temperature 36.4 C L 11/08/23 07:56 Pulse 62 11/08/23 07:56 Respiratory Rate 18 11/08/23 07:56 Blood Pressure 129/90 11/08/23 07:56 Pulse Oximetry 96 11/08/23 07:56 Temperature 36.4 C L 11/08/23 07:56 Pulse 62 11/08/23 07:56 Respiratory Rate 18 11/08/23 07:56 Respiratory Effort Normal 11/08/23 09:13 Blood Pressure 129/90 11/08/23 07:56 Blood Pressure Position Supine 11/08/23 07:56 Pulse Oximetry 96 11/08/23 07:56 Oxygen Delivery Method Room Air 11/08/23 07:56 Oxygen Flow Rate 0 11/08/23 07:56 Lab/Test Results Lab/Test Results: Laboratory Tests Range/Units 12/22/23 12/22/23 08:35 08:42 WBC (4.4-10.8) 10^3/uL 5.58 RBC (4.36-5.78) 10^6/uL 4.68 Hgb (13.5-17.5) g/dL 14.0 Hct (40.0-50.0) % 42.7 MCV (80-95) fL 91 MCH (27.0-33.0) pg 29.9 MCHC (32.0-36.0) % 32.8 RDW (11.8-14.1) % 12.5 Plt Count (130-400) 10^3/uL 256 MPV (8.0-11.0) fL 9.4 Immature Gran % 0.4 Neutrophils % 56.9 Lymphocytes % 17.4 Monocytes % 14.7 Eosinophils % 8.6 Basophils % 2.0 Nucleated RBC % (0.0-0.3) % 0.0 Absolute Neutrophils (1.2-6.7) 10^3/uL 3.18 Absolute Lymphocytes (1.2-3.4) 10^3/uL 0.97 L Absolute Monocytes (0.1-0.8) 10^3/uL 0.82 H Absolute Eosinophils (0.0-0.7) 10^3/uL 0.48 Absolute Basophils (0.0-0.2) 10^3/uL 0.11 Sodium (136-145) mmol/L 142 Potassium (3.5-5.1) mmol/L 3.8 Chloride (98-107) mmol/L 107 Carbon Dioxide (21.0-32.0) mmol/L 29.1 Anion Gap (3-11) mmol/L 5.9 BUN (7-18) mg/dL 22 H Creatinine (0.70-1.30) mg/dL 0.9 Est GFR (CKD-EPI 2020) (mL/min/1.73m2) 103.40 Glucose (74-106) mg/dL 112 H Calcium (8.5-10.1) mg/dL 8.6 Total Bilirubin (0.2-1.0) mg/dL 0.4 AST (15-37) U/L 27 ALT (16-63) U/L 37 Alkaline Phosphatase (46-116) U/L 79 Total Protein (6.4-8.2) g/dL 6.9 Albumin (3.4-5.0) g/dL 3.2 L COVID-19 Source Nasal/Nares SARS-CoV-2 (PCR) (Negative) POSITIVE A* PAWSS Have you Been Recently Intoxicated or Drunk Within the Last 30 days?: No Have you Ever Experienced Previous Episodes of Alcohol Withdrawal?: No Have you ever Experienced Withdrawal Seizures?: No Have you ever Experienced Delirium Tremens(DT)s?: No Have you ever undergone Alcohol Rehabilitation Treatment (i.e, inpt ot outpatient treatment programs)?: No Have you ever Experienced Blackouts?: No Have you ever Combined Alcohol with other Downers within the last 90 days?: No Have you ever Combined Alcohol with any other Substance of Abuse during the last 90 days?: No Result: 0
--- NOTE | 2023-11-08 09:45 | RT.EKG_ITS ---
APPROVED REPORT Exam: Resting ECG Reason for Exam: Syncope Patient Location: E HR:52 bpm ECG Measurements Heart Rate 52 AXIS NM 145 P 74 QRSd 115 QRS -13 QT 456 T 33 QTc 425 Conclusion Sinus bradycardia...rate< 60 Incomplete right bundle branch block...QRSd >112, terminal axis(90,270)
== END 2023-11-08 10:37 | disposition home or self-care (01) ==
PROVIDERS: Emergency Provider Nurse Practitioner Family; PCP Nurse Practitioner Family
DX: U07.1 COVID-19 (principal); Z11.52 Encounter for screening for COVID-19; R55 Syncope and collapse; S00.33XA Contusion of nose, initial encounter; W01.198A Fall on same level from slipping, tripping and stumbling with subsequent striking against other object, initial encounter
CPT/HCPCS: 36415; 80053; 87635; 93005; 99284; 70450; 70486; 85025; 93010; 99283

== ENCOUNTER 2024-07-29 15:54 | Outpatient (REF) | payer OTHER, SELFPAY ==
[2024-07-29 19:04] LABS: Abs Immature Grans 0.03 10^3/uL (0.0-0.06); Absolute Basophil Count 0.09 10^3/uL (0.0-0.2); Absolute Eosinophil Count 0.18 10^3/uL (0.0-0.7); Absolute Monocyte Count 0.62 10^3/uL (0.1-0.8); Absolute Neutrophil Count 5.36 10^3/uL (1.2-6.7); Basophils % 1.2 %; Eosinophils % 2.4 %; HCT 43.5 % (40.0-50.0); Immature Grans % 0.4 %; Lymphocytes % 17.2 %; MCH 29.9 pg (27.0-33.0); MCHC 32.2 % (32.0-36.0); MCV 93 fL (80-95); MPV 10.4 fL (8.0-11.0); Monocytes % 8.2 %; Neutrophils % 70.6 %; Platelet Count 275 10^3/uL (130-400); RBC 4.68 10^6/uL (4.36-5.78); RDW 12.1 % (11.8-14.1); WBC 7.58 10^3/uL (4.4-10.8)
[2024-07-29 19:29] LABS: Hemoglobin A1C 5.8 % (<5.7)
[2024-07-29 19:42] LABS: ALT 39 U/L (16-63); AST 20 U/L (15-37); Albumin 3.6 g/dL (3.4-5.0); Alkaline Phosphatase 80 U/L (46-116); BUN 29 mg/dL (7-18); Bilirubin, Total 0.27 mg/dL (0.2-1.0); Calcium 9.1 mg/dL (8.5-10.1); Chloride 106 mmol/L (98-107); Cholesterol 152 mg/dL (<200); Estimated GFR 90.56 (mL/min/1.73m2); Folate 18.4 ng/mL (8.6-20.0); Glucose 107 mg/dL (74-106); HDL Cholesterol 85 mg/dL (40-60); Magnesium 2.2 mg/dL (1.8-2.4); Potassium 4.5 mmol/L (3.5-5.1); Sodium 141 mmol/L (136-145); Total Protein 6.8 g/dL (6.4-8.2); Vitamin B12 331 pg/mL (193-986)
[2024-07-29 19:43] LABS: Triglyceride <25 mg/dL (<150)
[2024-07-29 20:20] LABS: LDL CHOLESTEROL 54 mg/dL (<100)
[2024-07-30 18:40] LABS: PSA, Screening 0.5 ng/mL (<=3.5)
== END 2024-07-29 15:55 | disposition home or self-care (01) ==
LOC: NCHCN 15:54
PROVIDERS: Visit Provider Nurse Practitioner Family
DX: Z13.6 Encounter for screening for cardiovascular disorders (principal); Z12.5 Encounter for screening for malignant neoplasm of prostate; R73.03 Prediabetes
CPT/HCPCS: 80053; 80061; 83721; 84153; 82607; 82746; 83036; 83735; 85025